=== PATIENT | female | born 1940 | race Caucasian/White ===

== ENCOUNTER 2020-02-02 08:04 | Outpatient (CLI) | payer MEDICARE, SELFPAY ==
--- NOTE | 2020-02-02 08:45 | USCV_ITS ---
Sujata Lomeli Age: 79 Gender: F : 1940 Exam Date: 02/02/2020 08:12 Ordering Phys: King Leonard MD ([email or web address]) Technologist: Paul Man Exam Location[place] [facility] [place]ication: CHEST PAIN BP: 124 / 72 HR: 70 Rhythm: Sinus Technical Quality: Fair MEASUREMENTS (Male / Female) Normal Values 2D ECHO LV Diastolic Diameter PLAX 4.0 cm 4.2 - 5.9 / 3.9 - 5.3 cm LV Systolic Diameter PLAX 3.4 cm IVS Diastolic Thickness 1.1 cm 0.6 - 1.0 / 0.6 - 0.9 cm IVS Systolic Thickness 1.3 cm LVPW Diastolic Thickness 0.8 cm 0.6 - 1.0 / 0.6 - 0.9 cm LVPW Systolic Thickness 1.4 cm LVOT Diameter 2.0 cm LV Ejection Fraction 2D Teich 33.5 % LV Ejection Fraction MOD 2C 64.1 % LV Ejection Fraction 2C AL 65.1 % LA Diameter 5.1 cm LA Width 4.0 cm LA Height 4.7 cm RA Width 2.9 cm RA Height 4.4 cm Aorta at Sinotubular Diameter 0.9 cm M-MODE LV Diastolic Diameter MM 5.9 cm 4.2 - 5.9 / 3.9 - 5.3 cm LV Systolic Diameter MM 3.8 cm LV Ejection Fraction MM Teich 64.0 % IVS Diastolic Thickness MM 0.7 cm 0.6 - 1.0 / 0.6 - 0.9 cm IVS Systolic Thickness MM 1.5 cm LVPW Diastolic Thickness MM 1.1 cm 0.6 - 1.0 / 0.6 - 0.9 cm LVPW Systolic Thickness MM 1.8 cm RV Diastolic Diameter MM 1.2 cm Aortic Annulus Diameter 3.5 cm LA Ao Ratio MM 1.5 MV E Point Septal Separation 1.3 cm DOPPLER AV Peak Velocity 136.0 cm/s LVOT Peak Velocity 86.0 cm/s AV Area Cont Eq vti 2.3 cm squared AV Area Cont Eq pk 2.1 cm squared MV Area PHT 5.0 cm squared Mitral E to A Ratio 0.6 MV E' Velocity 9.0 cm/s Mitral E to MV E' Ratio 10.9 Mitral E to LV E' Lateral Ratio 9.7 Mitral E to LV E' Septal Ratio 12.4 TR Peak Velocity 282.0 cm/s TR Peak Gradient 31.7 mmHg Right Atrial Pressure 3.0 mmHg Pulmonary Artery Systolic Pressu 34.8 mmHg PV Peak Velocity 111.0 cm/s FINDINGS Left Ventricle Normal left ventricular cavity size. Moderately decreased left ventricular systolic function. Global left ventricular hypokinesis. Left ventricular ejection fraction is estimated at 40 %. Global left ventricular hypokinesis. Grade I/IV diastolic dysfunction (abnormal relaxation filling pattern), normal to mildly elevated filling pressures. Right Ventricle The right ventricle is normal in size and function. Right Atrium The right atrium is normal in size. Left Atrium Moderately increased left atrial size. Mitral Valve Mildly thickened mitral valve. No mitral valve stenosis. Trace mitral valve regurgitation. Aortic Valve Severe aortic valve calcification. Moderate aortic valve stenosis, mean gradient 3.7 mmHg, DARIA 2.3 cm squared. Trace aortic valve regurgitation. Tricuspid Valve Trace tricuspid valve regurgitation. Pulmonic Valve Structurally normal pulmonic valve without significant stenosis. There is no pulmonic regurgitation. Pericardium Normal pericardium without effusion. Aorta Normal ascending aorta dimension. CONCLUSIONS 1-Normal left ventricular cavity size. Moderately decreased left ventricular systolic function. Global left ventricular hypokinesis. Left ventricular ejection fraction is estimated at 40 %. Global left ventricular hypokinesis. Grade I/IV diastolic dysfunction (abnormal relaxation filling pattern), normal to mildly elevated filling pressures. 2-Severe aortic valve calcification. Moderate aortic valve stenosis, mean gradient 3.7 mmHg, DARIA 2.3 cm squared. Trace aortic valve regurgitation. 3-Moderately increased left atrial size. 4-Trace tricuspid valve regurgitation. 5-There is no pericardial effusion. 6-Pulmonary artery systolic pressure is within normal limits. 7-There are no prior echocardiogram studies to compare. King Leonard MD (Electronically Signed) Final Date: 02 February 2020 14:23 S
== END 2020-02-02 08:05 | disposition home or self-care (01) ==
PROVIDERS: PCP Nurse Practitioner Family; Visit Provider Internal Medicine Cardiovascular Disease
DX: R55 Syncope and collapse (principal); R07.9 Chest pain, unspecified; I35.0 Nonrheumatic aortic (valve) stenosis
CPT/HCPCS: 93306

== ENCOUNTER 2020-07-25 14:55 | Emergency (ER) | payer MEDICARE, SELFPAY ==
[2020-07-25 15:02] VITALS: BP 149/80; PULSE 78; RESP 15; TEMP 36.3; O2SAT 99; BMI 30.9
--- NOTE | 2020-07-25 15:13 | XR_ITS ---
WS: [id number] Exam: XR chest 1V portable [id number] Date/Time of Exam: 07/25/2020 3:13 PM Reason For Exam: syncope Comparison 02/07/2009. The lungs are clear and fully expanded. No pleural effusions. Prominent hiatal hernia. Monitoring yuli ds superimpose the chest. XR/XR chest 1V portable [id number] IMPRESSION: 1. No acute cardiopulmonary finding. Large hiatal hernia.
[2020-07-25 15:14] VITALS: O2SAT 100
--- NOTE | 2020-07-25 15:17 | ECG_ITS ---
[facility] Test Date: 2020-07-25 Pat Name: Sujata Lomeli Department: Room: Gender: Female Grocery Supervisor: : 1940 Requested By: Donnell Rush Order Number: [id number] Reading MD: JUAN HOWE Measurements Intervals Arjay Rate: 72 P: 62 TN: 174 QRS: 9 QRSD: 89 T: 47 QT: 398 QTc: 437 Interpretive Statements SINUS RHYTHM No previous ECG available for comparison Electronically Signed On 07-25-2020 20:07:30 SLIP OPERATOR by JUAN HOWE [id number]
[2020-07-25 15:55] VITALS: BP 127/88; PULSE 81; RESP 19; O2SAT 100
--- NOTE | 2020-07-25 15:58 | W.ED.SYNCOPE ---
HPI - Syncope General: Chief Complaint: Syncope Stated Complaint: NEAR SYNCOPE, PALE, DIAPHORETIC Time Seen by Provider: 07/25/20 15:04 History of Present Illness: HPI narrative: The patient is a 79-year-old female who comes to the ER after a near syncopal episode at home. She says in the last year she has had at least 4 of these episodes. She says she was standing doing dishes and began to feel weak and lightheaded. She found a chair behind her to sit and slid to the ground to keep herself from falling to the ground. Her called EMS who noticed that she was pale, diaphoretic, and had a blood pressure of 56/42 with thready pulse. They started IV fluids. In the ER she is alert and oriented x4 with a normalized blood pressure. She says she still feels generally weak but no longer lightheaded. She has seen cardiology about this a few times who are titrating her blood pressure medications. Dr. Leonard is following her. She had a Holter monitor January of last year which showed no acute events. MD complaint: almost passed out -: minutes(s) (5) Context: standing up Associated symptoms: Reports no associated symptoms; Deny abdominal pain, chest pain or headache(s) History: previous syncopal episode Treatments prior to arrival: IV fluids Review of Systems General: Reports: 10 or more systems reviewed and unremarkable except in HPI and below Const: Denies: fatigue Eyes: Denies: change in vision, blurry vision or eye redness ENMT: Denies: throat pain, swelling of lips/tongue, ear or mastoid pain or nasal congestion Card: Denies: chest pain, palpitations, irregular heart rhythm, edema, dyspnea on exertion or orthopnea Resp: Denies: dyspnea, productive cough or non-productive cough GI: Denies: abdominal pain, diarrhea or GI cramping : Denies: flank pain, difficulty voiding, urinary frequency or urinary urgency Musc: Denies: neck pain, back pain, extremity pain, joint pain, joint redness, limited range of motion or muscle weakness Skin/Breast: Denies: rash, pruritus, erythema, skin pain or skin tenderness Neuro: Reports: other (Mild general weakness); Denies: headache(s), numbness in extremities, weakness in extremities, sensory changes, difficulty walking, dizziness, confusion or Slurred speech present Psych: Denies: anxiety or depression Endo: Denies: polyuria All/Imm: Denies: urticaria, throat swelling or tongue swelling PFSH ED PFSH: Medical History (Updated 07/25/20 @ 18:25 by Donnell Rush MD) Cardiomyopathy History of hypertension Physical Exam Const: COMMON NORMALS: no acute distress, average body habitus, patient oriented x3, no limitations, healthy appearing, alert and well nourished GENERAL APPEARANCE: cooperative, comfortable, well kempt and well developed ORIENTATION/CONSCIOUSNESS: Yes awake, Yes oriented to person, Yes oriented to place and Yes oriented to time HENMT: COMMON NORMALS: normocephalic, external ears normal and Normal external nose present HEAD & SCALP: normal to inspection and normocephalic NOSE: Normal external nose present EXTERNAL EAR: Yes external ears normal MOUTH: Normal oral and palatal mucosa present THROAT: posterior oropharynx normal Eye: COMMON NORMALS: Equal, round and reactive pupils present and EOMs intact bilaterally GENERAL EYE: appearance normal, both eyes and all related structures PUPIL: Yes Equal, round and reactive pupils present Neck/C-Spine: COMMON NORMALS: full ROM, no lymphadenopathy, no meningeal signs and no JVD GENERAL: Yes normal visual inspection Lymph: LYMPHATIC: no lymphadenopathy noted Chest: COMMONS NORMALS: normal inspection of the chest and normal palpation of entire chest wall Resp: COMMON NORMALS: normal respiratory effort, No retractions, No use of accessory muscles, clear to auscultation bilaterally and percussion normal EFFORT & INSPECTION: Yes able to speak in complete sentences AUSCULTATION: clear to auscultation bilaterally PERCUSSION: percussion normal Cardio: COMMON NORMALS: no JVD, regular rate, regular rhythm, S1 normal heart sound present, S2 normal heart sound present and Peripheral pulses 2+ throughout RATE: regular rate RHYTHM: regular rhythm HEART SOUNDS: S1 normal heart sound present and S2 normal heart sound present PERIPHERAL PULSES: Peripheral pulses 2+ throughout GI: COMMON NORMALS: Normal to inspection, nondistended, normoactive bowel sounds present, Soft to palpation, non-tender and no masses INSPECTION: Yes normal to inspection PALPATION: Yes Soft to palpation : COMMON NORMALS: Yes no CVA tenderness BLADDER/KIDNEY EXAM: Yes no CVA tenderness Back/Pelvis: COMMON NORMALS: no CVA tenderness, thoracic and lumbar spine normal to inspection, no thoracic nor lumbar tenderness and thoraco-lumbar ROM normal Extremity: COMMON NORMALS: normal to inspection, full ROM, capillary refill normal, no joint enlargement and no pedal edema GENERAL: Yes normal exam except as noted Neuro: COMMON NORMALS: patient oriented x3, CN's II-XII intact bilaterally, moves all extremities, no focal motor deficits, no sensory deficits noted and gait normal SENSORIUM/ORIENTATION: Yes alert, Yes oriented to person, Yes oriented to place and Yes oriented to time MENINGEAL SIGNS: Yes no meningeal signs Psych: COMMON NORMALS: mental status grossly normal, Normal thought process present, cooperative, normal affect and speech normal APPEARANCE: Yes well kempt ATTITUDE: Yes calm SPEECH: Yes normal speech THOUGHT PROCESS: Normal thought process present Skin: COMMON NORMALS: no rashes or lesions noted GENERAL SKIN EXAM: no rashes or lesions noted Course Vital Signs: Vital signs: Vital Signs Temperature 97.4 F L 07/25/20 15:02 Pulse Rate 90 07/25/20 18:02 Respiratory Rate 20 H 07/25/20 18:02 Blood Pressure 140/85 07/25/20 18:02 Pulse Oximetry 100 07/25/20 18:02 MDM - Syncope MDM Narrative: Medical decision making narrative: The patient came in after passing out with severe hypotension. Also her potassium is high and creatinine mildly elevated. Discussed with Dr. Leonard who she follows and he controls her blood pressure medications. He recommends discontinuing spironolactone, losartan, and amlodipine. Continue metoprolol. Bring blood pressure diary to his office next week and follow-up then. ER with worsening symptoms Lab Data: Labs: Lab Results 07/25/20 07/25/20 07/25/20 Range/Units 15:22 15:22 15:22 WBC 8.7 (4.0-10.0) 10^3/ uL RBC 4.14 (4.1-5.3) 10^6/u L Hgb 11.9 (11.5-15.3) g/dL Hct 37.0 (37.0-47.0) % MCV 89.4 (81-99) fL MCH 28.7 (28.0-34.0) pg MCHC 32.2 (30.0-36.0) g/dL RDW 13.3 (12.1-15.1) % Plt Count 271 (130-400) 10^3/c mm MPV 10.4 (7.4-10.4) fL Neut % (Auto) 74.7 % Lymph % (Auto) 14.1 % [place] % (Auto) 7.1 % Eos % (Auto) 2.3 % Baso % (Auto) 1.3 % Neut # (Auto) 6.52 (1.8-7.7) 10^3/u L Lymph # (Auto) 1.2 (0.8-4.8) 10^3/u L [place] # (Auto) 0.6 (0.2-0.9) 10^3/u L Eos # (Auto) 0.2 (0.0-0.8) 10^3/u L Baso # (Auto) 0.1 (0.0-0.1) 10^3/u L Nucleated RBC % (a uto) 0 % Nucleated RBCs # 0.0 /100WBC D-Dimer 0.46 (0-0.59) ug/mIFE U Sodium 135 L (136-145) mmol/L Potassium 5.4 H (3.5-5.1) mmol/L Chloride 101 (98-107) mmol/L Carbon Dioxide 25 (22-29) mmol/L Anion Gap 14.4 (5-19) BUN 21 (8-23) mg/dL Creatinine 1.2 H (0.5-0.9) mg/dL GFR Calculation Not Reportable Glucose 99 (65-115) mg/dL Calculated Osmolal ity 283 L (285-295) mOsm/k g Calcium 8.3 L (8.5-10.5) mg/dL Total Bilirubin 0.2 (0.15-1.2) mg/dL AST 18 (0-32) U/L ALT 16 (0-33) U/L Alkaline Phosphata se 87 (35-105) IU/L Troponin T Baselin e (0-10) ng/L NT-Pro-B Natriuret Pep 343 (0-450) pg/mL Total Protein 5.9 L (6.6-8.7) g/dL Albumin 3.8 (3.5-5.2) g/dL Globulin 2.1 (1.3-4.6) g/dL 02/24/21 Range/Units 15:22 WBC (4.0-10.0) 10^3/ uL RBC (4.1-5.3) 10^6/u L Hgb (11.5-15.3) g/dL Hct (37.0-47.0) % MCV (81-99) fL MCH (28.0-34.0) pg MCHC (30.0-36.0) g/dL RDW (12.1-15.1) % Plt Count (130-400) 10^3/c mm MPV (7.4-10.4) fL Neut % (Auto) % Lymph % (Auto) % Mohave % (Auto) % Eos % (Auto) % Baso % (Auto) % Neut # (Auto) (1.8-7.7) 10^3/u L Lymph # (Auto) (0.8-4.8) 10^3/u L Mohave # (Auto) (0.2-0.9) 10^3/u L Eos # (Auto) (0.0-0.8) 10^3/u L Baso # (Auto) (0.0-0.1) 10^3/u L Nucleated RBC % (a uto) % Nucleated RBCs # /100WBC D-Dimer (0-0.59) ug/mIFE U Sodium (136-145) mmol/L Potassium (3.5-5.1) mmol/L Chloride (98-107) mmol/L Carbon Dioxide (22-29) mmol/L Anion Gap (5-19) BUN (8-23) mg/dL Creatinine (0.5-0.9) mg/dL GFR Calculation Glucose (65-115) mg/dL Calculated Osmolal ity (285-295) mOsm/k g Calcium (8.5-10.5) mg/dL Total Bilirubin (0.15-1.2) mg/dL AST (0-32) U/L ALT (0-33) U/L Alkaline Phosphata se (35-105) IU/L Troponin T Baselin e 16 H (0-10) ng/L NT-Pro-B Natriuret Pep (0-450) pg/mL Total Protein (6.6-8.7) g/dL Albumin (3.5-5.2) g/dL Globulin (1.3-4.6) g/dL Discharge Plan Discharge Patient Disposition: Home Clinical Impression: Syncope, History of hypertension Condition: Stable Prescriptions: Discontinued amlodipine 5 mg tablet 5 mg PO QAM RF: 0 losartan 100 mg tablet 100 mg PO QAM RF: 0 spironolactone [Aldactone] 50 mg tablet 50 mg PO QAM RF: 0 No Action lamotrigine 100 mg tablet 100 mg PO BID RF: 0 cholecalciferol (vitamin D3) 125 mcg (5,000 unit) capsule 125 mcg PO QAM RF: 0 levothyroxine 75 mcg capsule 75 mcg PO QAM RF: 0 ICaps AREDS 14,320-226-200 [id number] capsule 1 cap PO BID RF: 0 multivitamin Tablet 1 tab PO PRN RF: 0 naproxen 500 mg tablet 500 mg PO BID PRN (Reason: Pain) RF: 0 metoprolol tartrate 25 mg tablet 12.5 mg PO BEDTIME RF: 0 Discharge Orders: Discharge ED (Routine); Ordered 07/25/20 Ordered By: Donnell Rush Referrals: Corrie Penn APN [Primary Care Provider] - Discharge Diet: Advance as tolerated Discharge Activity: Resume usual activity Patient Instructions: Near Syncope (ED), Opioid Safety Activity Restrictions/Additional Instructions: You have passed out at home likely because of your aortic stenosis and you are taking too much blood pressure medicine. I discussed with Dr. Leonard who recommend you take your blood pressure twice a day and bring it to his office next week to follow-up. He recommends stopping the spironolactone, losartan, and amlodipine. Keep taking the metoprolol. The rest of your medicines will be unchanged as well. Return to the ER with worsening symptoms or systolic blood pressures greater than 180 at home. Or with any chest pain, shortness of breath, or focal weakness. Coding Level of Care Code ED Indirect Sales Exec for Michelle Fwsue Exam Comprehensive
[2020-07-25 16:30] LABS: Troponin(5th) Baseline 16 ng/L (0-10)
[2020-07-25 16:39] LABS: Alanine Aminotransferase 16 U/L (0-33); Albumin Level 3.8 g/dL (3.5-5.2); Alkaline Phosphatase 87 IU/L (35-105); Anion Gap 14.4 (5-19); Aspartate Amino Transferase 18 U/L (0-32); Blood Urea Nitrogen 21 mg/dL (8-23); Calcium 8.3 mg/dL (8.5-10.5); Carbon Dioxide 25 mmol/L (22-29); Chloride 101 mmol/L (98-107); Globulin 2.1 g/dL (1.3-4.6); Glucose 99 mg/dL (65-115); NT Pro B Type Natriuretic Pept 343 pg/mL (0-450); Osmolality Calculated 283 mOsm/kg (285-295); Potassium 5.4 mmol/L (3.5-5.1); Sodium 135 mmol/L (136-145); Total Bilirubin 0.2 mg/dL (0.15-1.2); Total Protein 5.9 g/dL (6.6-8.7)
[2020-07-25 16:41] LABS: Basophils # 0.1 10^3/uL (0.0-0.1); Basophils % 1.3 %; Eosinophils # 0.2 10^3/uL (0.0-0.8); Eosinophils % 2.3 %; Hemoglobin 11.9 g/dL (11.5-15.3); Lymphocytes # 1.2 10^3/uL (0.8-4.8); Lymphocytes % 14.1 %; Mean Corpuscular HGB Conc 32.2 g/dL (30.0-36.0); Mean Corpuscular Hemoglobin 28.7 pg (28.0-34.0); Mean Corpuscular Volume 89.4 fL (81-99); Mean Platelet Volume 10.4 fL (7.4-10.4); Monocytes # 0.6 10^3/uL (0.2-0.9); Monocytes % 7.1 %; Neutrophils # 6.52 10^3/uL (1.8-7.7); Neutrophils % 74.7 %; Nucleated Red Blood Cells % 0 %; Platelet Count 271 10^3/cmm (130-400); Red Blood Count 4.14 10^6/uL (4.1-5.3); Red Cell Distribution Width 13.3 % (12.1-15.1); White Blood Count 8.7 10^3/uL (4.0-10.0)
[2020-07-25 16:44] LABS: D Dimer 0.46 ug/mIFEU (0-0.59)
--- NOTE | 2020-07-25 16:51 | PC.NURSE ---
EKG done at 1650 and shown to ER doctor
--- NOTE | 2020-07-25 17:17 | ECG_ITS ---
[facility] Test Date: 2020-07-25 Pat Name: Sujata Lomeli Department: Room: Gender: Female Inpatient Auditor: : 1940 Requested By: Donnell Rush Order Number: [id number] Reading MD: JUAN HOWE Measurements Intervals [place] Rate: 77 P: 42 MO: 186 QRS: -8 QRSD: 81 T: 11 QT: 396 QTc: 449 Interpretive Statements SINUS RHYTHM Compared to ECG 07/25/2020 15:01:49 No significant changes Electronically Signed On 07-25-2020 20:08:28 SURGICAL DEVICE SALES REPRESENTATIVE by JUAN HOWE [id number]
[2020-07-25 18:02] VITALS: BP 140/85; PULSE 90; RESP 20; O2SAT 100
[2020-07-25 18:26] LABS: Troponin 5 2HR 15.21 ng/L (0-10)
[2020-07-25 18:43] LABS: Troponin 5 2HR Delta -0.79 ABS# (0-10)
[2020-07-25 19:05] VITALS: BP 130/69; PULSE 88; RESP 16; O2SAT 97
[2020-07-25 19:51] LABS: Add Urine Microscopic? NO
[2020-07-25 19:59] LABS: Bilirubin Urine Neg (Negative); Blood Urine Neg (Negative); Glucose Urine UA Norm (Normal); Ketones Urine Negative (Negative); Leukocyte Esterase Urine Negative (Negative); Nitrate Urine Negative (Negative); Protein Urine Neg (Negative); Urine Appearance Clear (CLEAR); Urine Color Straw (Yellow); Urobilinogen Urine Norm (Negative); pH Urine 6.5 (5-7)
--- NOTE | 2020-07-26 14:17 | DCPLANNER ---
hydrogen plant operations manager had message to schedule a follow up appointment for patient with Dr. Leonard, at [facility]. hydrogen plant operations manager called [facility], spoke with Mackenzie, a follow up appointment was scheduled for Friday, July 31, 2020 at 12:[address] Leonard. Patient is aware of appointment.
--- NOTE | 2020-08-06 08:16 | DCPLANNER ---
Patient had a follow up appointment scheduled for 07.31.20 with heart care - patient did attend appointment.
== END 2020-07-25 19:14 | disposition home or self-care (01) ==
PROVIDERS: Emergency Provider Family Medicine; PCP Nurse Practitioner Family
DX: R55 Syncope and collapse (principal); I10 Essential (primary) hypertension
CPT/HCPCS: 36415; 71045; 80053; 81003; 83880; 84484; 85025; 85378; 93005; 99284

== ENCOUNTER 2020-09-06 08:38 | Outpatient (CLI) | payer MEDICARE, SELFPAY ==
--- NOTE | 2020-09-06 08:45 | USCV_ITS ---
Sujata Lomeli Age: 79 Gender: F : 1940 Exam Date: 09/06/2020 08:57 Ordering Phys: Shweta Chaparro Technologist: Jodi Lockhart [place]am [place] [facility] [place] Indication: syncope and collapse Risk Factors: Previous Vascular Surgery: Right Brachial BP: / Left Brachial BP: / Right Left Velocity (cm/s) Spectral Plaque Velocity (cm/s) Spectral Plaque Syst/Diast Broadening Syst/Diast Broadening 61.80/ 12.90 Prox CCA 56.60 / 12.90 60.00/ 18.90 Mid CCA 54.90 / 12.90 56.60/ 18.90 Distal CCA 50.60 / 14.60 43.70/ 11.10 Prox ICA 33.20 / 10.30 45.50/ 11.10 Mid ICA 37.90 / 10.90 54.00/ 18.00 Distal ICA 41.30 / 12.80 90.90 ECA 102.10 0.90 ICA/CCA 0.75 Antegrade Vertebral Antegrade 33.20/ 6.60 cm/s 63.40/ 15.20 cm/s Tri Subclavian Tri 101.2 37.00 0 CONCLUSIONS Right ICA stenosis <50%. Mild atheromatous plaque right carotid bulb/ICA. Left ICA stenosis <50%. Mild atheromatous plaque left carotid bulb/ICA. Normal antegrade Doppler flow noted in the right vertebral artery. Normal antegrade Doppler flow noted in the left vertebral artery. Julio Cesar Dangelo MD (Electronically Signed) Final Date: 06 September 2020 10:22 S
== END 2020-09-06 08:39 | disposition home or self-care (01) ==
LOC: US 08:42
PROVIDERS: PCP Nurse Practitioner Family; Visit Provider Nurse Practitioner Family
DX: R55 Syncope and collapse (principal); I65.23 Occlusion and stenosis of bilateral carotid arteries
CPT/HCPCS: 93880

== ENCOUNTER → 2021-02-13 12:05 | Outpatient (BNVA) | payer MEDICARE, SELFPAY | PROVIDERS: PCP Nurse Practitioner Family; Visit Provider Nurse Practitioner Family | DX: I10 Essential (primary) hypertension (principal); R55 Syncope and collapse | CPT/HCPCS: 80048 ==

== ENCOUNTER 2021-03-01 13:54 | Emergency (ER) | payer MEDICARE, SELFPAY ==
--- NOTE | 2021-03-01 13:58 | CT_ITS ---
WS: [id number] CT HEAD NONCONTRAST HISTORY: stroke symptoms TECHNIQUE: Contiguous axial imaging performed through the brain in 2.5 mm imaging. Bone and soft tiss ue windows. Sagittal and coronal reformats reviewed. All CT scans at [facility] use at least one of these dose optimization techniques: automated exposure control; mA and/or kV adjustment per pa tient size (includes targeted exams where dose is matched to clinical indication); or iterative recon struction. DLP: 941.78 mGy-cm. COMPARISON: 02/07/2009 No acute intracranial hemorrhage, midline shift or mass effect. Moderate central and peripheral atrophy. There is extensive chronic white matter ischemic changes whi ch are symmetric and confluent. Prior lacunar infarct external capsule on the RIGHT. Ventricles: Normal size with no hydrocephalus. No inferior displacement of the cerebellar tonsils. Paranasal sinuses: As visualized are clear. Mastoid Cells: Well pneumatized. Calvarium and scalp: Skull is intact with no soft tissue edema or swelling. Numerous foci of air in the RIGHT masseter space and extending external to the temporal temporal bone to the RIGHT orbit. No history of trauma was provided. No fracture is identified. CT/CT head wo con* [id number] IMPRESSION: 1. Central and peripheral atrophy with extensive chronic microvascular ischemi c changes. 2. No acute hemorrhage. 3. Subcutaneous air along the RIGHT calvarium extending into the RIGHT massete r space. No history of trauma was provided. No fractures are identified.
[2021-03-01 14:07] VITALS: BP 183/91; PULSE 62; RESP 17; O2SAT 98; BMI 29.6
[2021-03-01 14:17] LABS: Basophils # 0.1 10^3/uL (0.0-0.1); Basophils % 1.6 %; Eosinophils # 0.2 10^3/uL (0.0-0.8); Eosinophils % 3.6 %; Hematocrit 35.8 % (37.0-47.0); Lymphocytes # 1.6 10^3/uL (0.8-4.8); Lymphocytes % 25.9 %; Mean Corpuscular HGB Conc 33.5 g/dL (30.0-36.0); Mean Corpuscular Hemoglobin 28.5 pg (28.0-34.0); Mean Platelet Volume 10.8 fL (7.4-10.4); Monocytes # 0.7 10^3/uL (0.2-0.9); Neutrophils # 3.55 10^3/uL (1.8-7.7); Neutrophils % 57.6 %; Nucleated Red Blood Cells % 0 %; Platelet Count 268 10^3/cmm (130-400); Red Blood Count 4.21 10^6/uL (4.1-5.3); White Blood Count 6.2 10^3/uL (4.0-10.0)
--- NOTE | 2021-03-01 14:24 | ED_ITS ---
HPI - Neuro Symptoms/Deficit General: Chief Complaint: Neuro Symptoms/Deficit Stated Complaint: STROKE LIKE SYMPTOMS Time Seen by Provider: 03/01/21 13:57 History of Present Illness: HPI Narrative: 80-year-old female presents emergency room with strokelike symptoms. Last known normal was approximately 1250 she arrived here at 1357. Reports of syncopal episodes left-sided weakness. On arrival patient has no deficits whatsoever. She is awake and alert x3. Onset (ago): minute(s) Location: speech, left face, left arm and left leg History of same: Yes Severity: mild Quality: weak Relieving factors: time Exacerbating factors: none Context: sudden onset On Anticoagulants: No Associated symptoms: Deny chest pain, cough, diaphoresis, fevers/chills, hea dache(s), anorexia, malaise, nausea, seizures, short of breath, syncope, tingling, vertigo, vomiting or weakness Treatments Prior to Arrival: none Review of Systems Const: Denies: malaise or diaphoresis ENMT: Denies: throat pain, ear or mastoid pain, nasal discharge or nasal congestion Card: Denies: chest pain or syncope Resp: Denies: dyspnea, productive cough or non-productive cough GI: Denies: nausea or vomiting : Denies: flank pain, difficulty voiding, dysuria, urinary frequency or urinary urgency Skin/Breast: Denies: rash or pruritus Neuro: Denies: headache(s) or vertigo [facility] ED PFSH: Medical History Cardiomyopathy Coronary artery disease Hypertension Hypothyroidism Surgical History Hx of tubal ligation S/P cataract surgery NIH stroke score NIHSS: Level Of Consciousness - 1a: 0 Level Of Consciousness Questions - 1b: Both Correct Level Of Consciousness Commands - 1c: Both Correct Best Gaze - 2: Normal Visual Colon - 3: No Visual Loss Facial Palsy - 4: Normal Motor Arm Right - 5: No Drift Motor Arm Left - 5: No Drift Motor Leg Right - 6: No Drift Motor Leg Left - 6: No Drift Limb Ataxia - 7: Absent Sensory - 8: Normal Best Language - 9: No Aphasia Dysarthia - 10: Normal Extinction And Inattention - 11: 0 Score: Total Score: 0 Physical Exam Const: COMMON NORMALS: no acute distress GENERAL APPEARANCE: cooperative and comfortable ORIENTATION/CONSCIOUSNESS: Yes awake, Yes oriented to person, Yes oriented to place and Yes oriented to time HENMT: COMMON NORMALS: normocephalic, atraumatic and hearing grossly normal bilaterally HEAD & SCALP: normocephalic and atraumatic Neck/C-Spine: COMMON NORMALS: no JVD Resp: COMMON NORMALS: normal respiratory effort, No retractions, No use of accessory muscles and clear to auscultation bilaterally AUSCULTATION: clear to auscultation bilaterally Cardio: COMMON NORMALS: no JVD, regular rate, regular rhythm and No murmurs present (Cardio) RATE: regular rate RHYTHM: regular rhythm GI: COMMON NORMALS: Soft to palpation and No hepatosplenomegaly present AUSCULTATION: Yes normoactive bowel sounds PALPATION: Yes Soft to palpation, No Tenderness to palpation present (GI), No Guarding due to palpation present (GI) and Yes No hepatosplenomegaly present Extremity: COMMON NORMALS: normal to inspection, capillary refill normal, no clubbing, cyanosis or edema, no calf tenderness and no pedal edema Neuro: SENSORIUM/ORIENTATION: Yes oriented to person, Yes oriented to place and Yes oriented to time Skin: COMMON NORMALS: no rashes or lesions noted GENERAL SKIN EXAM: no rashes or lesions noted Course Vital Signs: Vital signs: Vital Signs Pulse Rate 67 03/01/21 16:13 Respiratory Rate 16 03/01/21 16:13 Blood Pressure 163/79 03/01/21 16:13 Pulse Oximetry 98 03/01/21 16:13 MDM - Neuro Symptoms/Deficit MDM Narrative: Medical decision making narrative: [facility] imaging and EKG reviewed. Discussed with the patient. Will start on 81 mg aspirin daily. She is completely resolved all of her symptoms within an hour. Further work-up as an outpatient. Lab Data: Labs: Lab Results 03/01/21 03/01/21 03/01/21 14:00 14:00 14:00 WBC 6.2 10^3/uL 10^3/ uL (4.0-10.0) RBC 4.21 10^6/uL 10^6 /uL (4.1-5.3) Hgb 12.0 g/dL g/dL (11.5-15.3) Hct 35.8 % L % (37.0-47.0) MCV 85.0 fl fl (81-99) MCH 28.5 pg pg (28.0-34.0) MCHC 33.5 g/dL g/dL (30.0-36.0) RDW 14.0 % % (12.1-15.1) Plt Count 268 10^3/cmm 10^3 /cmm (130-400) MPV 10.8 fL H fL (7.4-10.4) Neut % (Auto) 57.6 % % Lymph % (Auto) 25.9 % % [place] % (Auto) 11.0 % % Eos % (Auto) 3.6 % % Baso % (Auto) 1.6 % % Neut # (Auto) 3.55 10^3/uL 10^3 /uL (1.8-7.7) Lymph # (Auto) 1.6 10^3/uL 10^3/ uL (0.8-4.8) [place] # (Auto) 0.7 10^3/uL 10^3/ uL (0.2-0.9) Eos # (Auto) 0.2 10^3/uL 10^3/ uL (0.0-0.8) Baso # (Auto) 0.1 10^3/uL 10^3/ uL (0.0-0.1) Nucleated RBC % (a uto) 0 % % Nucleated RBCs # 0.0 /100WBC /100W BC PT Cancelled INR Cancelled APTT Cancelled Sodium 130 mmol/L L mmol /L (136-145) Potassium 4.5 mmol/L mmol/L (3.5-5.1) Chloride 94 mmol/L L mmol/ L (98-107) Carbon Dioxide 28 mmol/L mmol/L (22-29) Anion Gap 12.5 (5-19) BUN 18 mg/dL mg/dL (8-23) Creatinine 0.8 mg/dL mg/dL (0.5-0.9) GFR Calculation Not Reportable Glucose 102 mg/dL mg/dL (65-115) Calculated Osmolal ity 272 mOsm/kg L mOs m/kg (285-295) Calcium 9.3 mg/dL mg/dL (8.5-10.5) Total Bilirubin 0.3 mg/dL mg/dL (0.15-1.2) AST 18 U/L U/L (0-32) ALT 14 U/L U/L (0-33) Alkaline Phosphata se 76 IU/L IU/L (35-105) Total Protein 6.3 g/dL L g/dL (6.6-8.7) Albumin 4.0 g/dL g/dL (3.5-5.2) Globulin 2.3 g/dL g/dL (1.3-4.6) 03/01/21 14:33 WBC RBC Hgb Hct MCV MCH MCHC RDW Plt Count MPV Neut % (Auto) Lymph % (Auto) [place] % (Auto) Eos % (Auto) Baso % (Auto) Neut # (Auto) Lymph # (Auto) [place] # (Auto) Eos # (Auto) Baso # (Auto) Nucleated RBC % (a uto) Nucleated RBCs # PT 12.70 SECONDS SEC ONDS (12.1-14.9) INR 0.92 (0.8-1.2) APTT 24.5 SECONDS SECO NDS (23.9-36.7) Sodium Potassium Chloride Carbon Dioxide Anion Gap BUN Creatinine GFR Calculation Glucose Calculated Osmolal ity Calcium Total Bilirubin AST ALT Alkaline Phosphata se Total Protein Albumin Globulin Discharge Plan Discharge Patient Disposition: Home Clinical Impression: Transient ischemic attack Condition: Stable Prescriptions: New aspirin 81 mg tablet,delayed release (DR/EC) 81 mg PO DAILY Qty: 30 RF: 0 No Action lamotrigine 100 mg tablet 100 mg PO BID RF: 0 cholecalciferol (vitamin D3) 125 mcg (5,000 unit) capsule 125 mcg PO QAM RF: 0 ICaps AREDS 14,320-226-200 [id number]-[id number] capsule 1 cap PO BID RF: 0 valsartan-hydrochlorothiazide 320-25 mg tablet 1 tab PO QAM Qty: 90 RF: 2 naproxen 500 mg tablet 500 mg PO BID PRN (Reason: Pain) RF: 0 carvedilol 12.5 mg tablet 18.75 mg PO BID RF: 0 levothyroxine 75 mcg tablet 75 mcg PO QAM RF: 0 spironolactone 25 mg tablet 12.5 mg PO QAM RF: 0 Discharge Orders: Discharge ED (Routine); Ordered 03/01/21 Ordered By: Julien Hyde Referrals: Corrie Penn APN [Primary Care Provider] - Patient Instructions: Opioid Safety Coding Level of Care Code ED Executive Producer [employer] for Chg Fwd Exam Comprehensive
--- NOTE | 2021-03-01 14:32 | CT_ITS ---
WS: [id number] CT FACIAL BONES HISTORY: abnormal CT head TECHNIQUE: Images obtained from the supraorbital location through the mandible. Soft tissue and bone windows are reviewed. Coronal and sagittal reformats have also been submitted. DLP: 724.[address] scans at [facility] use at least one of these dose optimization techniques: automated e xposure control; mA and/or kV adjustment per patient size (includes targeted exams where dose is matc hed to clinical indication); or iterative reconstruction. COMPARISON: CT head 03/01/2021 No facial bone fractures. Previously described subcutaneous air along the RIGHT lateral temporal bone and masseter space has nearly completely resolved. There is very minimal mucosal mucoperiosteal thic kening in the RIGHT lateral frontal sinus. No air-fluid levels in the sinuses. CT/CT facial bones wo con* [id number] IMPRESSION: 1. Nearly resolved subcutaneous air over the RIGHT facial bones and in the mas seter space. Unknown etiology. 2. No fractures.
--- NOTE | 2021-03-01 14:32 | CT_ITS ---
WS: [id number] CT CERVICAL SPINE HISTORY: neck pain TECHNIQUE: Contiguous 2.5 mm axial imaging performed through the entire cervical spine. Sagittal and coronal reformats also performed. All CT scans at [facility] use at least one of these dose o ptimization techniques: automated exposure control; mA and/or kV adjustment per patient size (include s targeted exams where dose is matched to clinical indication); or iterative reconstruction. DLP: 460.09 mGy.cm COMPARISON: None available. Cervical alignment is normal. Moderate degenerative disc disease and osteophytosis at C4-5, C5-6 and C6-7. No acute fractures. Craniocervical junction is normal. Lateral masses of C1 and C2 are aligned and the odontoid is intact. Osteophytic ridging at C4-5, C5-6 and C6-7. No high-grade central or fora oralia stenosis. Lung apices are clear. No pneumothorax. No air within the soft tissues of the neck. No soft tissue ma sses. Benign cervical chain lymph nodes. CT/CT cervical spin wo con* [id number] IMPRESSION: 1. Moderate degenerative spondylitic changes in the cervical spine with no hig h-grade stenosis. 2. No acute fracture. 3. No subcutaneous air.
--- NOTE | 2021-03-01 14:32 | XR_ITS ---
WS: [id number] Exam: XR chest 1V portable [id number] Date/Time of Exam: 03/01/2021 2:32 PM Reason For Exam: dyspnea/cough Comparison 07/25/2020. The lungs are clear and fully expanded. Cardiomediastinal structures are unremarkable. Prominent hiat al hernia. Bony elements are intact. XR/XR chest 1V portable [id number] IMPRESSION: 1. No acute cardiopulmonary finding. Prominent hiatal hernia.
[2021-03-01 14:37] LABS: Alanine Aminotransferase 14 U/L (0-33); Alkaline Phosphatase 76 IU/L (35-105); Anion Gap 12.5 (5-19); Aspartate Amino Transferase 18 U/L (0-32); Blood Urea Nitrogen 18 mg/dL (8-23); Calcium 9.3 mg/dL (8.5-10.5); Carbon Dioxide 28 mmol/L (22-29); Chloride 94 mmol/L (98-107); Globulin 2.3 g/dL (1.3-4.6); Glucose 102 mg/dL (65-115); Osmolality Calculated 272 mOsm/kg (285-295); Potassium 4.5 mmol/L (3.5-5.1); Sodium 130 mmol/L (136-145); Total Bilirubin 0.3 mg/dL (0.15-1.2); Total Protein 6.3 g/dL (6.6-8.7)
[2021-03-01 14:53] LABS: INR 0.92 (0.8-1.2)
[2021-03-01 14:54] LABS: Partial Thromboplastin Time 24.5 SECONDS (23.9-36.7)
--- NOTE | 2021-03-01 15:30 | PC.PHAR ---
pt states she takes care of her own medications-pt states she takes carvedilol 18.75mg po bid filled on 02/07/21 90d/s-donny alicea wrote rx on 02/13/21 12.5mg bid-pt states -the dced her clonidine 0.1mg q8h prn high blood pressure ext med history shows last filled on 02/05/21-notes are made in the pharmacy comments
[2021-03-01 16:13] VITALS: BP 163/79; PULSE 67; RESP 16; O2SAT 98
--- NOTE | 2021-03-04 10:28 | DCPLANNER ---
[facility] had message to schedule some out patient tests for patient. [facility] had message to schedule an outpatient echocardiogram, carotid duplex, a 48 hour halter monitor and an MRI. [facility] faxed signed order to both centralized scheduling, and heart care. Centralized scheduling and heart care will call patient with appointment information.
--- NOTE | 2021-03-08 15:16 | DCPLANNER ---
Patient has a follow up appointment scheduled for Thursday, April at 9:30 for an echo. A carotid is scheduled Thursday, April 15, 2021 at 9:30 and an MRI scheduled for Thursday, March 25, 2021 at 1:00.
--- NOTE | 2021-04-18 16:40 | DCPLANNER ---
Patient had an out patient echo and carotid duplex scheduled - patient did not attend. Patient had a follow up appointment scheduled with heart care and it was cancelled.
== END 2021-03-01 16:14 | disposition home or self-care (01) ==
PROVIDERS: Emergency Provider Family Medicine; PCP Nurse Practitioner Family
DX: G45.9 Transient cerebral ischemic attack, unspecified (principal); I25.10 Atherosclerotic heart disease of native coronary artery without angina pectoris; I10 Essential (primary) hypertension
CPT/HCPCS: 70450; 70486; 71045; 72125; 80053; 85025; 85610; 85730; 99283

== ENCOUNTER 2021-04-01 12:27 | Outpatient (RCR) | payer MEDICARE, SELFPAY | END 2021-04-30 23:59 | disposition home or self-care (01) | LOC: TPT 12:27 | PROVIDERS: PCP Nurse Practitioner Family; Visit Provider Family Medicine Adult Medicine | DX: R29.898 Other symptoms and signs involving the musculoskeletal system (principal); Z98.890 Other specified postprocedural states | CPT/HCPCS: 97110; 97116; 97163 ==

== ENCOUNTER 2021-04-24 21:23 | Emergency (ER) | payer MEDICARE, SELFPAY ==
[2021-04-24 21:23] VITALS: BP 184/80; PULSE 70; RESP 18; TEMP 36.3; O2SAT 100; BMI 30.5
--- NOTE | 2021-04-24 21:28 | ECG_ITS ---
[facility] Test Date: 2021-04-24 Pat Name: Sujata Lomeli Department: Room: Gender: Female Bobbin Dumper: : 1940 Requested By: Josh Melo Order Number: [id number] Dany MD: Adiel Shah M.D. Measurements Intervals [place] Rate: 69 P: 37 SD: 177 QRS: -14 QRSD: 96 T: -3 QT: 406 QTc: 437 Interpretive Statements SINUS RHYTHM Compared to ECG 07/25/2020 16:46:01 No significant changes Electronically Signed On 04-25-2021 4:24:42 [facility] by Adiel Shah M.D. [id number]
--- NOTE | 2021-04-24 21:28 | XRR_ITS ---
PROCEDURE INFORMATION: Exam: XR Chest Exam date and time: 04/24/2021 9:28 PM Age: 80 years old Clinical indication: Other: Weakness TECHNIQUE: Imaging protocol: XR of the chest. Views: 1 view. COMPARISON: CR XR chest 1V portable [id number] 03/01/2021 2:39 PM FINDINGS: Lungs: Unremarkable. No consolidation. Pleural spaces: Unremarkable. No pleural effusion. No pneumothorax. Heart/Mediastinum: Unremarkable. No cardiomegaly. Bones/joints: Unremarkable. XR/XR chest 1V portable [id number] IMPRESSION: No acute findings. Radiation Dose CTDIVOL = (mGy): DLP = (mGy-cm)
--- NOTE | 2021-04-24 21:29 | ED_ITS ---
HPI - Weakness General: Chief complaint: Weakness Stated complaint: WEAKNESS Time Seen by Provider: 04/24/21 21:23 Source: patient and EMS Mode of arrival: EMS Limitations: no limitations History of Present Illness: HPI Narrative: 80-year-old female states that she started feeling generally weak roughly 3 hours ago. States she is had many episodes in the past like this and they have never been able to find the cause. She states she is just had some difficulty walking due to weakness. States she does have a hard time walking at baseline walks with a walker and had Achilles surgery should she has a hard time walking but states that she has felt unsteady when she stands. Denies any headache denies any focal deficits. She is well- appearing here denies chest pain or abdominal pain. Associated symptoms: Denies chest pain, chills, dysuria, easy bruising, fever(s), nausea or vomiting Review of Systems Const: Denies: fever(s), chills, body aches or change in appetite Eyes: Denies: blurry vision or eye discomfort ENMT: Denies: throat pain or dental pain Card: Denies: chest pain Resp: Denies: dyspnea GI: Denies: abdominal pain, nausea, vomiting or diarrhea : Denies: dysuria Musc: Denies: neck pain or back pain Skin/Breast: Denies: rash Neuro: Reports: weakness in extremities Psych: Denies: depression Jayesh/Lymph: Denies: easy bruising All/Imm: Denies: urticaria PFSH ED PFSH: Medical History Cardiomyopathy Cerebral vascular disease TIA on 03/01/2021 Chronic pain of right lower extremity Coronary artery disease Hypertension Hypothyroidism Osteoarthritis Right leg weakness Seizure disorder Surgical History Hx of foot surgery Hx of tubal ligation S/P cataract surgery Social History Smoking and tobacco status: never smoked Physical Exam Const: COMMON NORMALS: no acute distress, patient oriented x3 and healthy appearing HENMT: COMMON NORMALS: normocephalic and atraumatic HEAD & SCALP: normocephalic and atraumatic Eye: COMMON NORMALS: Equal, round and reactive pupils present and EOMs intact bilaterally PUPIL: Yes Equal, round and reactive pupils present Neck/C-Spine: COMMON NORMALS: full ROM and supple Chest: COMMONS NORMALS: normal inspection of the chest and normal palpation of entire chest wall Resp: COMMON NORMALS: normal respiratory effort, No retractions, No use of accessory muscles and clear to auscultation bilaterally AUSCULTATION: clear to auscultation bilaterally Cardio: COMMON NORMALS: regular rate, regular rhythm and No murmurs present (Cardio) RATE: regular rate RHYTHM: regular rhythm GI: COMMON NORMALS: Normal to inspection, nondistended, normoactive bowel sounds present, Soft to palpation, non-tender and no masses PALPATION: Yes Soft to palpation Extremity: COMMON NORMALS: normal to inspection and full ROM Neuro: COMMON NORMALS: patient oriented x3, moves all extremities and no focal motor deficits Psych: COMMON NORMALS: mental status grossly normal, Normal thought process present and cooperative THOUGHT PROCESS: Normal thought process present Skin: COMMON NORMALS: no rashes or lesions noted and no wounds GENERAL SKIN EXAM: no rashes or lesions noted Course Vital Signs: Vital signs: Vital Signs Temperature 97.4 F L 04/24/21 21:23 Pulse Rate 67 04/24/21 22:14 Respiratory Rate 20 H 04/24/21 22:14 Blood Pressure 173/73 04/24/21 22:44 Pulse Oximetry 97 04/24/21 22:14 MDM - Weakness MDM Narrative: Medical decision making narrative: Patient presents here with weakness that since resolved. She had multiple episodes like this in the past she has no signs of stroke here no focal deficits she is requesting discharge blood work and head CT are normal I feel she is stable for discharge she is to follow-up with PCP and return if worsening. Lab Data: Labs: Lab Results 04/24/21 04/24/21 04/24/21 21:40 21:40 22:34 WBC 7.3 10^3/uL 10^3/ uL (4.0-10.0) RBC 4.09 10^6/uL L 10 ^6/uL (4.1-5.3) Hgb 11.7 g/dL g/dL (11.5-15.3) Hct 35.9 % L % (37.0-47.0) MCV 87.8 fl fl (81-99) MCH 28.6 pg pg (28.0-34.0) MCHC 32.6 g/dL g/dL (30.0-36.0) RDW 14.0 % % (12.1-15.1) Plt Count 269 10^3/cmm 10^3 /cmm (130-400) MPV 10.2 fL fL (7.4-10.4) Neut % (Auto) 58.5 % % Lymph % (Auto) 27.0 % % [place] % (Auto) 8.8 % % Eos % (Auto) 3.8 % % Baso % (Auto) 1.6 % % Neut # (Auto) 4.27 10^3/uL 10^3 /uL (1.8-7.7) Lymph # (Auto) 2.0 10^3/uL 10^3/ uL (0.8-4.8) [place] # (Auto) 0.6 10^3/uL 10^3/ uL (0.2-0.9) Eos # (Auto) 0.3 10^3/uL 10^3/ uL (0.0-0.8) Baso # (Auto) 0.1 10^3/uL 10^3/ uL (0.0-0.1) Nucleated RBC % (a uto) 0 % % Nucleated RBCs # 0.0 /100WBC /100W BC PT 11.80 SECONDS L S ECONDS (12.1-14.9) INR 0.84 (0.8-1.2) Sodium 129 mmol/L L mmol /L (136-145) Potassium 3.9 mmol/L mmol/L (3.5-5.1) Chloride 92 mmol/L L mmol/ L (98-107) Carbon Dioxide 25 mmol/L mmol/L (22-29) Anion Gap 15.9 (5-19) BUN 19 mg/dL mg/dL (8-23) Creatinine 0.9 mg/dL mg/dL (0.5-0.9) GFR Calculation Not Reportable Glucose 100 mg/dL mg/dL (65-115) Calculated Osmolal ity 270 mOsm/kg L mOs m/kg (285-295) Calcium 9.0 mg/dL mg/dL (8.5-10.5) Total Bilirubin 0.2 mg/dL mg/dL (0.15-1.2) AST 17 U/L U/L (0-32) ALT 14 U/L U/L (0-33) Alkaline Phosphata se 89 IU/L IU/L (35-105) Total Protein 6.4 g/dL L g/dL (6.6-8.7) Albumin 4.1 g/dL g/dL (3.5-5.2) Globulin 2.3 g/dL g/dL (1.3-4.6) TSH 5.26 uIU/mL H uIU /mL (0.27-4.20) Urine Color Urine Appearance Urine pH Ur Specific Gravit y Urine Protein Urine Glucose (UA) Urine Ketones Urine Blood Urine Nitrate Urine Bilirubin Urine Urobilinogen Ur Leukocyte Jackie ase Urine RBC Urine WBC Ur Squamous Epith Cells Amorphous Sediment Urine Bacteria Hyaline Casts Urine Mucus 04/24/21 22:54 WBC RBC Hgb Hct MCV MCH MCHC RDW Plt Count MPV Neut % (Auto) Lymph % (Auto) [place] % (Auto) Eos % (Auto) Baso % (Auto) Neut # (Auto) Lymph # (Auto) [place] # (Auto) Eos # (Auto) Baso # (Auto) Nucleated RBC % (a uto) Nucleated RBCs # PT INR Sodium Potassium Chloride Carbon Dioxide Anion Gap BUN Creatinine GFR Calculation Glucose Calculated Osmolal ity Calcium Total Bilirubin AST ALT Alkaline Phosphata se Total Protein Albumin Globulin TSH Urine Color Yellow (Yellow) Urine Appearance Clear (CLEAR) Urine pH 5 (5-7) Ur Specific Gravit y 1.020 (1.005-1.030) Urine Protein Trace (Negative) Urine Glucose (UA) Norm (Normal) Urine Ketones Negative (Negative) Urine Blood Neg (Negative) Urine Nitrate Negative (Negative) Urine Bilirubin 1+ H (Negative) Urine Urobilinogen Neg mg/dL mg/dL (Negative) Ur Leukocyte Jackie ase 2+ H (Negative) Urine RBC Rare /hpf /hpf (0-2) Urine WBC 15-25 /hpf H /hpf (0-5) Ur Squamous Epith Cells 0-4 /hpf H /hpf (0-5) Amorphous Sediment 1+ /hpf /hpf Urine Bacteria Trace /hpf /hpf (NONE) Hyaline Casts 5-10 /lpf H /lpf Urine Mucus 4+ /hpf /hpf Imaging Data^: CT Head: Radiologist's impression: [employer] [facility] [place] [address] CT Scan Report Signed Patient: Sujata Lomeli Unit #: [id number] : 1940 Age/Sex: 80 / F ADM Date: 04/24/21 Loc: ER Room/Bed: Attending Dr: Ordering Provider/Ordering MD: Josh Melo MD Date of Service: 04/24/21 Procedure(s): CT head wo con* [id number] Accession Number(s): [id number] Report Number: [id number] PROCEDURE INFORMATION: Exam: CT Head Without Contrast Exam date and time: 04/24/2021 9:28 PM Age: 80 years old Clinical indication: Patient HX: General weakness with hypertension. TECHNIQUE: Imaging protocol: Computed tomography of the head without contrast. Radiation optimization: All CT scans at this facility use at least one of these dose optimization techniques: automated exposure control; mA and/or kV adjustment per patient size (includes targeted exams where dose is matched to clinical indication); or iterative reconstruction. COMPARISON: CT head wo con* [id number] 03/01/2021 1:49 PM RADIATION DOSE METRICS: Total DLP (mGy-cm): 870.29 FINDINGS: Brain: Age appropriate atrophy and small vessel ischemic change. No evidence of intracranial hemorrhage, mass effect, midline shift or extra-axial fluid collections. Midline structures are normal. Berman-white matter differentiation is normal. Cerebral ventricles: No ventriculomegaly. Paranasal sinuses: Mucosal thickening in the ethmoid and frontal sinuses. Mastoid air cells: Visualized mastoid air cells are well aerated. Orbital cavity: The patient has had bilateral lens replacement surgery. Vasculature: Carotid atherosclerotic calcification. Bones/joints: Unremarkable. No acute fracture. Soft tissues: Unremarkable. CT/CT head wo con* [id number] IMPRESSION: No acute intracranial abnormality. Radiation Dose CTDIVOL = (mGy): DLP = 870.29 (mGy-cm) Dictated By: Ashish Alvarenga MD Signed By: Ashish Alvarenga MD Signed Date/Time: 04/24/212229 DD/ 27 CXR: Radiologist's impression: [employer] [place] [address] XRay Report Signed Patient: Sujata Lomeli Unit #: [id number] : 1940 [id number] Age/Sex: 80 / F ADM Date: 04/24/21 Loc: ER Room/Bed: Attending Dr: Ordering Provider/Ordering MD: Josh Melo MD Date of Service: 04/24/21 Procedure(s): XR chest 1V portable [id number] Accession Number(s): [id number] Report Number: [id number] PROCEDURE INFORMATION: Exam: XR Chest Exam date and time: 04/24/2021 9:28 PM Age: 80 years old Clinical indication: Other: Weakness TECHNIQUE: Imaging protocol: XR of the chest. Views: 1 view. COMPARISON: CR XR chest 1V portable [id number] 03/01/2021 2:39 PM FINDINGS: Lungs: Unremarkable. No consolidation. Pleural spaces: Unremarkable. No pleural effusion. No pneumothorax. Heart/Mediastinum: Unremarkable. No cardiomegaly. Bones/joints: Unremarkable. XR/XR chest 1V portable [id number] IMPRESSION: No acute findings. Radiation Dose CTDIVOL = (mGy): DLP = (mGy-cm) Dictated By: Ashish Alvarenga MD Signed By: Ashish Alvarenga MD Signed Date/Time: 04/24/212222 DD/ 27 EKG Data^: EKG 1: Attestation: I personally reviewed and interpreted this EKG as follows: EKG interpretation date: 04/24/21 EKG interpretation time: 21:39 Interpretation: nsr hr [address] or t wave abnormalities qrs 96 qtc 425 Discharge Plan Discharge Patient Disposition: Home Clinical Impression: Weakness Condition: Stable Prescriptions: No Action cholecalciferol (vitamin D3) 125 mcg (5,000 unit) capsule 125 mcg PO QAM RF: 0 lamotrigine 100 mg tablet 150 mg PO BID RF: 0 levothyroxine 75 mcg tablet 75 mcg PO QAM Qty: 90 RF: 3 meloxicam 7.5 mg tablet 7.5 mg PO BIDWMEAL Qty: 60 RF: 1 tramadol 50 mg tablet 25 mg PO Q8H PRN (Reason: pain) Qty: 30 RF: 0 valsartan-hydrochlorothiazide 320-25 mg tablet 1 tab PO QAM Qty: 90 RF: 2 carvedilol 12.5 mg tablet 18.75 mg PO BID RF: 0 spironolactone 25 mg tablet 12.5 mg PO QAM RF: 0 aspirin 81 mg tablet,delayed release (DR/EC) 81 mg PO DAILY Qty: 30 RF: 0 Discharge Orders: Discharge ED (Routine); Ordered 04/24/21 Ordered By: Josh Melo Referrals: César Lockhart MD [Primary Care Provider] - Discharge Diet: Advance as tolerated Discharge Activity: Resume usual activity Patient Instructions: Weakness (ED) Coding Level of Care Code ED Smelter Liner for Chg Fwd Exam Comprehensive NIH stroke score NIHSS Level Of Consciousness - 1a: 0 Level Of Consciousness Questions - 1b: Both Correct Level Of Consciousness Commands - 1c: Both Correct Best Gaze - 2: Normal Visual Colon - 3: No Visual Loss Facial Palsy - 4: Normal Motor Arm Right - 5: No Drift Motor Arm Left - 5: No Drift Motor Leg Right - 6: No Drift Motor Leg Left - 6: No Drift Limb Ataxia - 7: Absent Sensory - 8: Normal Best Language - 9: No Aphasia Dysarthia - 10: Normal Extinction And Inattention - 11: 0 Score Total Score: 0
[2021-04-24] MEDS: sodium chloride 0.9% 1,000 ML 999 ML IV (21:30)
[2021-04-24 21:55] LABS: Basophils # 0.1 10^3/uL (0.0-0.1); Basophils % 1.6 %; Eosinophils # 0.3 10^3/uL (0.0-0.8); Eosinophils % 3.8 %; Hematocrit 35.9 % (37.0-47.0); Hemoglobin 11.7 g/dL (11.5-15.3); Mean Corpuscular HGB Conc 32.6 g/dL (30.0-36.0); Mean Corpuscular Hemoglobin 28.6 pg (28.0-34.0); Mean Corpuscular Volume 87.8 fl (81-99); Mean Platelet Volume 10.2 fL (7.4-10.4); Monocytes # 0.6 10^3/uL (0.2-0.9); Monocytes % 8.8 %; Neutrophils # 4.27 10^3/uL (1.8-7.7); Neutrophils % 58.5 %; Nucleated Red Blood Cells % 0 %; Platelet Count 269 10^3/cmm (130-400); Red Blood Count 4.09 10^6/uL (4.1-5.3); White Blood Count 7.3 10^3/uL (4.0-10.0)
[2021-04-24 22:14] VITALS: BP 184/80; PULSE 67; RESP 20; O2SAT 97
[2021-04-24 22:40] LABS: Alanine Aminotransferase 14 U/L (0-33); Albumin Level 4.1 g/dL (3.5-5.2); Alkaline Phosphatase 89 IU/L (35-105); Anion Gap 15.9 (5-19); Aspartate Amino Transferase 17 U/L (0-32); Blood Urea Nitrogen 19 mg/dL (8-23); Carbon Dioxide 25 mmol/L (22-29); Chloride 92 mmol/L (98-107); Globulin 2.3 g/dL (1.3-4.6); Glucose 100 mg/dL (65-115); Osmolality Calculated 270 mOsm/kg (285-295); Potassium 3.9 mmol/L (3.5-5.1); Sodium 129 mmol/L (136-145); Thyroid Stimulating Hormone 5.26 uIU/mL (0.27-4.20); Total Bilirubin 0.2 mg/dL (0.15-1.2); Total Protein 6.4 g/dL (6.6-8.7)
[2021-04-24 22:44] VITALS: BP 173/73
[2021-04-24 22:51] LABS: INR 0.84 (0.8-1.2)
[2021-04-24 23:09] LABS: Add Urine Microscopic? YES; Bilirubin Urine 1+ (Negative); Blood Urine Neg (Negative); Glucose Urine UA Norm (Normal); Ketones Urine Negative (Negative); Leukocyte Esterase Urine 2+ (Negative); Nitrate Urine Negative (Negative); Protein Urine Trace (Negative); RBC Urine RARE /hpf (0-2); Urine Appearance Clear (CLEAR); Urine Color Yellow (Yellow); Urobilinogen Urine Neg (Negative); WBC Urine 15-25 /hpf (0-5); pH Urine 5 (5-7)
[2021-04-24 23:10] LABS: Amorphous Sediment Urine 1+ /hpf; Bacteria Urine TRACE /hpf; Mucus Urine 4+ /hpf; Squamous Epithelial Cell Urine 0-4 /hpf (0-5)
[2021-04-24 23:11] LABS: Add Urine Culture? No
[2021-04-24 23:33] VITALS: BP 166/60; PULSE 75; RESP 16; O2SAT 97
== END 2021-04-24 23:34 | disposition home or self-care (01) ==
PROVIDERS: Emergency Provider Emergency Medicine; PCP Family Medicine Adult Medicine
DX: R53.1 Weakness (principal); I42.9 Cardiomyopathy, unspecified; Z87.820 Personal history of traumatic brain injury; G89.29 Other chronic pain; I10 Essential (primary) hypertension; I25.10 Atherosclerotic heart disease of native coronary artery without angina pectoris; Z79.82 Long term (current) use of aspirin; Z79.891 Long term (current) use of opiate analgesic
CPT/HCPCS: 70450; 71045; 80053; 81001; 84443; 85025; 85610; 93005; 96360; 99284; J7030

== ENCOUNTER 2021-05-01 06:00 | Outpatient (RCR) | payer MEDICARE, SELFPAY | END 2021-05-31 23:59 | disposition home or self-care (01) | LOC: TPT 06:00 | PROVIDERS: PCP Family Medicine Adult Medicine; Visit Provider Family Medicine Adult Medicine | DX: R29.898 Other symptoms and signs involving the musculoskeletal system (principal) | CPT/HCPCS: 97110; 97164 ==

== ENCOUNTER 2021-05-02 13:33 | Emergency (ER) | payer MEDICARE, SELFPAY ==
[2021-05-02] VITALS (8 sets, daily range): BP systolic 119–191; BP diastolic 46–82; PULSE 68–80; RESP 14–20; TEMP 36.6; O2SAT 83–100
--- NOTE | 2021-05-02 13:55 | W.ED.SYNCOPE ---
HPI - Syncope General: Chief Complaint: Syncope Stated Complaint: SYNCOPAL EPISODE/ + LOC Time Seen by Provider: 05/02/21 13:54 History of Present Illness: HPI narrative: Ms. Lomeli is a 80-year-old lady with history of hypothyroidism, hypertension and seizure disorder who presents to the emergency department due to syncope. Over the past 6 months she has had recurrent episodes of syncope. She describes an abnormal feeling in knowing that they are coming on though no specific lightheadedness, dizziness, chest pain, or shortness of breath. They do not correlate with any particular activity including position changes. They appear to be coming more frequent. Today her episode occurred while in the kitchen, she was making a sandwich and subsequently syncopized. Family reports unresponsiveness for approximately 20 minutes without seizure-like activity. EMS arrived and found her to be hypotensive. Overall the course of symptoms has improved and she now feels fatigued however no other focal findings. No other changes in health, exacerbating, or alleviating factors. Review of Systems General: Reports: 10 or more systems reviewed and unremarkable except in HPI and below PFSH ED PFSH: Medical History Cardiomyopathy Cerebral vascular disease TIA on 03/01/2021 Chronic pain of right lower extremity Coronary artery disease Hypertension Hypothyroidism Osteoarthritis Right leg weakness Seizure disorder Surgical History Hx of foot surgery Hx of tubal ligation S/P cataract surgery Physical Exam Narrative: EXAM NARRATIVE: GENERAL/CONSTITUTIONAL -frail-appearing. No acute distress. Eyes - PERRL, no conjunctival injection ENMT - Atraumatic external nose and ears. Moist mucous membranes NECK - supple. trachea midline CARDIOVASCULAR - regular rate and rhythm. Normal peripheral perfusion RESPIRATORY -clear to auscultation bilaterally. ABDOMEN/GI - Nontender/Nondistended. MSK - Extremities without obvious deformity or tenderness to palpation SKIN - Warm, Dry NEURO - alert and appropriately oriented. Cranial nerves II through XII intact. Coordination, strength, and sensation intact. Moves all extremities equally. Course ED course: - Patient was seen and evaluated by me at bedside - Patient placed on cardiac monitors, IV access obtained - Initial evaluation notable for mildly frail appearance, no acute distress, no neurologic deficits appreciated on clinical exam. - Labs notable for no leukocytosis. No acute metabolic abnormalities to explain patient's symptoms. Delta troponin negative. TSH normal. - Imaging notable for head CT is negative for acute intracranial process however patient does have a fracture involving the anterior arch of the left recommendation for CT imaging without need for CTA. CT neck redemonstrates this finding, appears to be present but not identified on previous study and is new from 03/01. I discussed this case with neurosurgery in [place], given isolated anterior arch fracture patient will be placed in [place] collar with follow-up with neurosurgery. No indication for emergent transfer. - Upon serial reexamination after treatment the patient was similar. - This is a challenging situation as patient has recurrent episodes. She had an increase in antiepileptic medication and description of symptoms is not consistent with generalized seizures. Duration of episodes is unlikely to be related to arrhythmia. She did have a echocardiogram in January 2020 which did show some cardiac disease. A carotid ultrasound in August 2020 did not reveal significant stenosis. Additionally she has seen cardiology as recently as March. I do not think that the patient would benefit from additional inpatient testing at this time. - Based on patient history, evaluation, labs, and imaging as interpreted the most likely cause of the patient's condition is recurrent falls/syncope of unclear etiology and C1 fracture. - The results of ED evaluation were discussed with the patient including prescriptions and/or symptomatic cares (if applicable) including appropriate and responsible use, followup plan, and return precautions. The patient verbalized understanding and felt safe for discharge. - Patient discharged in satisfactory condition. Patient's oxygen saturation remained adequate throughout entire ED course, I believe that the last recorded SPO2 of 83% was erroneously entered and the patient in fact had better oxygen saturation at time of discharge. Vital Signs: Vital signs: Vital Signs Temperature 97.9 F 05/02/21 13:46 Pulse Rate 72 05/02/21 20:00 Respiratory Rate 16 05/02/21 20:00 Blood Pressure 158/64 05/02/21 20:00 Pulse Oximetry 83 L 05/02/21 20:00 MDM - Syncope Medical Records: Attestation: I reviewed the patient's medical records. Lab Data: Attestation: I reviewed the patient's lab results. Labs: Lab Results 05/02/21 05/02/21 05/02/21 14:48 14:48 14:48 WBC 7.7 10^3/uL 10^3/ uL (4.0-10.0) RBC 4.31 10^6/uL 10^6 /uL (4.1-5.3) Hgb 12.4 g/dL g/dL (11.5-15.3) Hct 38.0 % % (37.0-47.0) MCV 88.2 fl fl (81-99) MCH 28.8 pg pg (28.0-34.0) MCHC 32.6 g/dL g/dL (30.0-36.0) RDW 13.9 % % (12.1-15.1) Plt Count 265 10^3/cmm 10^3 /cmm (130-400) MPV 10.5 fL H fL (7.4-10.4) Neut % (Auto) 77.1 % % Lymph % (Auto) 14.3 % % [place] % (Auto) 5.4 % % Eos % (Auto) 1.7 % % Baso % (Auto) 1.2 % % Neut # (Auto) 5.97 10^3/uL 10^3 /uL (1.8-7.7) Lymph # (Auto) 1.1 10^3/uL 10^3/ uL (0.8-4.8) [place] # (Auto) 0.4 10^3/uL 10^3/ uL (0.2-0.9) Eos # (Auto) 0.1 10^3/uL 10^3/ uL (0.0-0.8) Baso # (Auto) 0.1 10^3/uL 10^3/ uL (0.0-0.1) Nucleated RBC % (a uto) 0 % % Nucleated RBCs # 0.0 /100WBC /100W BC Sodium 137 mmol/L mmol/L (136-145) Potassium 4.4 mmol/L mmol/L (3.5-5.1) Chloride 100 mmol/L mmol/L (98-107) Carbon Dioxide 23 mmol/L mmol/L (22-29) Anion Gap 18.4 (5-19) BUN 15 mg/dL mg/dL (8-23) Creatinine 0.9 mg/dL mg/dL (0.5-0.9) GFR Calculation Not Reportable Glucose 107 mg/dL mg/dL (65-115) Calculated Osmolal ity 285 mOsm/kg mOsm/ kg (285-295) Calcium 8.8 mg/dL mg/dL (8.5-10.5) Total Bilirubin 0.3 mg/dL mg/dL (0.15-1.2) AST 17 U/L U/L (0-32) ALT 15 U/L U/L (0-33) Alkaline Phosphata se 79 IU/L IU/L (35-105) Troponin T Baselin e 13 ng/L H ng/L (0-10) Troponin T 120 Min [place] Delta Troponin T Total Protein 6.1 g/dL L g/dL (6.6-8.7) Albumin 4.3 g/dL g/dL (3.5-5.2) Globulin 1.8 g/dL g/dL (1.3-4.6) TSH 1.65 uIU/mL uIU/m L (0.27-4.20) 05/02/21 17:02 WBC RBC Hgb Hct MCV MCH MCHC RDW Plt Count MPV Neut % (Auto) Lymph % (Auto) [place] % (Auto) Eos % (Auto) Baso % (Auto) Neut # (Auto) Lymph # (Auto) [place] # (Auto) Eos # (Auto) Baso # (Auto) Nucleated RBC % (a uto) Nucleated RBCs # Sodium Potassium Chloride Carbon Dioxide Anion Gap BUN Creatinine GFR Calculation Glucose Calculated Osmolal ity Calcium Total Bilirubin AST ALT Alkaline Phosphata se Troponin T Baselin e Troponin T 120 Min [place] 13.08 ng/L H ng/L (0-10) Delta Troponin T 0.08 ABS# ABS# (0-10) Total Protein Albumin Globulin TSH EKG Data^: EKG 1: Attestation: I personally reviewed and interpreted this EKG as follows: EKG interpretation date: 05/02/21 EKG interpretation time: 14:04 Interpretation: Twelve-lead EKG shows a regular rhythm at a rate of 64. TX interval 170, QRS duration 102, QTc 454. Borderline axis Interpretation: Sinus rhythm with nonspecific ST segment abnormalities which are similar to prior. Discharge Plan Discharge Patient Disposition: Home Clinical Impression: Syncope, Fracture of anterior arch of C1 Condition: Stable Prescriptions: No Action cholecalciferol (vitamin D3) 125 mcg (5,000 unit) capsule 125 mcg PO QAM RF: 0 tramadol 50 mg tablet 25 mg PO Q8H PRN (Reason: pain) Qty: 30 RF: 0 carvedilol 12.5 mg tablet 18.75 mg PO BID RF: 0 spironolactone 25 mg tablet 12.5 mg PO QAM RF: 0 lamotrigine 150 mg tablet 150 mg PO BID RF: 0 aspirin 81 mg tablet,delayed release (DR/EC) 81 mg PO DAILY RF: 0 levothyroxine 75 mcg tablet 75 mcg PO QAM RF: 0 valsartan-hydrochlorothiazide 320-25 mg tablet 1 tab PO QAM RF: 0 Discharge Orders: Discharge ED (Routine); Ordered 05/02/21 Ordered By: Bobby Freeman Referrals: César Lockhart MD [Primary Care Provider] - Discharge Diet: Usual diet Discharge Activity: Limit activity as instructed Patient Instructions: Syncope (ED), [place] Collar (ED) Activity Restrictions/Additional Instructions: Thank you for visiting the emergency department. You were seen and evaluated for syncope. The exact cause of your symptoms and recurrent syncope is unclear. As discussed you do have a fracture of the anterior arch of C1. You should follow-up with your neurosurgeon regarding this, call to schedule an appointment. Wear your [place] collar as instructed. Please follow-up with your neurologist, cardiology, and your primary care provider. Please return to the emergency department for recurrent symptoms, any new neurologic symptoms, or anything else that you are concerned about and feel needs emergency department evaluation. Coding Level of Care Code ED Tap Dancer for Michelle Urias
--- NOTE | 2021-05-02 14:19 | ECG_ITS ---
[facility] Test Date: 2021-05-02 Pat Name: Sujata Lomeli Department: Room: Gender: Female Social Worker Delinquency Prevention: : 1940 Requested By: Bobby Freeman Order Number: [id number] Dany MD: Adalgisa Jacobsen M.D. Measurements Intervals [place] Rate: 64 P: 20 WI: 170 QRS: -14 QRSD: 102 T: -12 QT: 437 QTc: 454 Interpretive Statements SINUS RHYTHM MODERATE VOLTAGE CRITERIA FOR LVH, CONSIDER NORMAL VARIANT [MEETS CRITERIA IN ONE OF: R(aVL), S(V1), R(V5), R(V5/V6)+S(V1)] Compared to ECG 04/24/2021 21:39:30 No significant changes Electronically Signed On 05-02-2021 16:03:16 COMIC ARTIST by Adalgisa Jacobsen M.D. [id number]
--- NOTE | 2021-05-02 14:19 | CTR_ITS ---
PROCEDURE INFORMATION: Exam: CT Head Without Contrast Exam date and time: 05/02/2021 2:19 PM Age: 80 years old Clinical indication: Syncope and collapse. Altered mental status. TECHNIQUE: Imaging protocol: Computed tomography of the head without contrast. Radiation optimization: All CT scans at this facility use at least one of these dose optimization techniques: automated exposure control; mA and/or kV adjustment per patient size (includes targeted exams where dose is matched to clinical indication); or iterative reconstruction. COMPARISON: CT head wo con* [id number] 04/24/2021 9:53 PM RADIATION DOSE METRICS: Total DLP (mGy-cm): 852.43 FINDINGS: Brain: No acute intracranial hemorrhage. Unchanged lacunar infarct in the right basal ganglia. No mass, mass effect or midline shift.. There is no evidence of acute large vessel infarct.. There is moderate patchy subcortical and periventricular hypodensity, most commonly associated with small vessel ischemic disease of indeterminate age. The posterior fossa is grossly unremarkable; however, it is partially obscurred by beam hardening artifact. Cerebral ventricles: The ventricles are prominent, compatible with moderate parenchymal volume loss. Paranasal sinuses: The visualized paranasal sinuses are clear. Mastoid air cells: No mastoid effusion. Orbital cavity: The visualized orbits are unremarkable. Bones/joints: There is an acute fracture involving the anterior arch of C1 on the left. CT/CT head wo con* [id number] IMPRESSION: 1. Acute fracture involving the anterior arch of C1 on the left. 2. Moderate senescent changes as above. 3. No acute intracranial abnormality is identified. Radiation Dose CTDIVOL = (mGy): DLP = 852.43 (mGy-cm)
--- NOTE | 2021-05-02 14:19 | XR_ITS ---
WS: [id number] Portable AP upright chest, 05/02/2021 Clinical Data: syncope Comparison: Portable chest, 04/24/2021. Findings: No nodules, masses or effusions are seen. The heart is normal. The pulmonary vascularity is not increased. No pneumonia or pneumothorax is seen. The descending thoracic aorta shows mild tortuo sity. There is a hiatal hernia behind the heart. Monitor leads are on the chest wall. There is a levo scoliosis of the thoracic spine. XR/XR chest 1V portable [id number] Impression: Atherosclerosis.
[2021-05-02 14:59] LABS: Basophils # 0.1 10^3/uL (0.0-0.1); Basophils % 1.2 %; Eosinophils # 0.1 10^3/uL (0.0-0.8); Eosinophils % 1.7 %; Hemoglobin 12.4 g/dL (11.5-15.3); Lymphocytes # 1.1 10^3/uL (0.8-4.8); Lymphocytes % 14.3 %; Mean Corpuscular HGB Conc 32.6 g/dL (30.0-36.0); Mean Corpuscular Hemoglobin 28.8 pg (28.0-34.0); Mean Corpuscular Volume 88.2 fl (81-99); Mean Platelet Volume 10.5 fL (7.4-10.4); Monocytes # 0.4 10^3/uL (0.2-0.9); Monocytes % 5.4 %; Neutrophils # 5.97 10^3/uL (1.8-7.7); Neutrophils % 77.1 %; Nucleated Red Blood Cells % 0 %; Platelet Count 265 10^3/cmm (130-400); Red Blood Count 4.31 10^6/uL (4.1-5.3); Red Cell Distribution Width 13.9 % (12.1-15.1); White Blood Count 7.7 10^3/uL (4.0-10.0)
--- NOTE | 2021-05-02 15:01 | PC.PHAR ---
pt states she takes care of her own medications-pt states she doesnt take mobic anymore rx was filled on 04/16/21 30d/s 7.5mg bid-pt states she still takes valsartan-hctz 320-25 daily rx last filled on 03/04/21 7d/s-notes are made in the pharmacy comments
--- NOTE | 2021-05-02 15:26 | CTR_ITS ---
PROCEDURE INFORMATION: Exam: CT Cervical Spine Without Contrast Exam date and time: 05/02/2021 3:26 PM Age: 80 years old Clinical indication: Fall with blunt trauma. Anterior C1 arch fracture. TECHNIQUE: Imaging protocol: Computed tomography images of the cervical spine without contrast. Radiation optimization: All CT scans at this facility use at least one of these dose optimization techniques: automated exposure control; mA and/or kV adjustment per patient size (includes targeted exams where dose is matched to clinical indication); or iterative reconstruction. COMPARISON: CT cervical spin wo con* [id number] 03/01/2021 3:10 PM RADIATION DOSE METRICS: Total DLP (mGy-cm): 737.23 FINDINGS: There is a fracture involving the anterior arch of C1 on the left. The cervical lordosis is maintained. No prevertebral soft tissue swelling is seen. Ynhx-bz-cblornci degenerative disc disease is seen in the cervical spine. No acute fracture is identified. The atlantoaxial interval and craniocervical junction are maintained. Small, scattered cervical lymph nodes are noted. There is scarring in the lung apices. A pretracheal lymph node measures 1.1 x 1.3 cm. A precarinal lymph node measures 1.[address]/CT cervical spin wo con* [id number] IMPRESSION: 1. Fracture involving the anterior arch of C1 on the left. This was present on CT brain from 04/24/2021. This is new from 03/01/2021. 2. Fszn-ho-qigfkugz degenerative disc disease in the cervical spine. 3. Mediastinal lymphadenopathy. Consider nonemergent CT chest to further assess. Radiation Dose CTDIVOL = (mGy): DLP = 737.23 (mGy-cm)
[2021-05-02 15:40] LABS: Troponin(5th) Baseline 13 ng/L (0-10)
[2021-05-02 15:49] LABS: Alanine Aminotransferase 15 U/L (0-33); Albumin Level 4.3 g/dL (3.5-5.2); Alkaline Phosphatase 79 IU/L (35-105); Anion Gap 18.4 (5-19); Aspartate Amino Transferase 17 U/L (0-32); Blood Urea Nitrogen 15 mg/dL (8-23); Calcium 8.8 mg/dL (8.5-10.5); Carbon Dioxide 23 mmol/L (22-29); Chloride 100 mmol/L (98-107); Globulin 1.8 g/dL (1.3-4.6); Glucose 107 mg/dL (65-115); Osmolality Calculated 285 mOsm/kg (285-295); Potassium 4.4 mmol/L (3.5-5.1); Sodium 137 mmol/L (136-145); Thyroid Stimulating Hormone 1.65 uIU/mL (0.27-4.20); Total Bilirubin 0.3 mg/dL (0.15-1.2); Total Protein 6.1 g/dL (6.6-8.7)
[2021-05-02 17:37] LABS: Troponin 5 2HR 13.08 ng/L (0-10); Troponin 5 2HR Delta 0.08 ABS# (0-10)
--- NOTE | 2021-05-03 10:32 | DCPLANNER ---
clinical pharmacy manager had message to schedule an outpatient holter monitor for patient. clinical pharmacy manager faxed a signed order to [facility] care for halter monitor. [facility] will call patient with appointment information.
--- NOTE | 2021-05-07 11:47 | DCPLANNER ---
sales marketing manager had message to schedule an outpatient echo cardiogram for patient. sales marketing manager faxed signed order to centralized scheduling, who will call patient with appointment information.
--- NOTE | 2021-05-09 07:54 | DCPLANNER ---
Patient had a 21 day event monitor appointment scheduled - appointment cancelled by patient.
--- NOTE | 2021-06-13 06:54 | DCPLANNER ---
Addendum entered by Katya Contreras 07/26/21 12:14: Patient had a follow up appointment scheduled for 07.08.21 - patient did attend appointment. Original Note: Patient has an outpatient echo cardiogram scheduled for Thursday, July 08, 2021 at 7:15, centralized scheduling will call patient with appointment information.
== END 2021-05-02 20:19 | disposition home or self-care (01) ==
PROVIDERS: Emergency Provider Emergency Medicine; PCP Family Medicine Adult Medicine
DX: R55 Syncope and collapse (principal); S12.091A Other nondisplaced fracture of first cervical vertebra, initial encounter for closed fracture; Z79.82 Long term (current) use of aspirin; Z86.73 Personal history of transient ischemic attack (TIA), and cerebral infarction without residual deficits; I25.10 Atherosclerotic heart disease of native coronary artery without angina pectoris; I10 Essential (primary) hypertension; W19.XXXA Unspecified fall, initial encounter
CPT/HCPCS: 70450; 71045; 72125; 80053; 84443; 84484; 85025; 93005; 99283

== ENCOUNTER 2021-05-23 13:05 | Emergency (ER) | payer MEDICARE, SELFPAY ==
[2021-05-23 13:08] VITALS: BP 142/80; PULSE 63; RESP 16; TEMP 36.6; O2SAT 99; BMI 29.0
--- NOTE | 2021-05-23 14:04 | W.ED.SEIZURE ---
HPI - Seizure General: Chief Complaint: Seizure Stated Complaint: AMS, SEIZURE LIKE ACTIVITY Time Seen by Provider: 05/23/21 13:35 History of Present Illness: HPI Narrative: 72-year-old female presents to the emergency room with complaints of having had a seizure. Has had episodes in the past had cardiac work-up recently referred to neurology. She describes seizures as being absence seizure's. She had an episode this morning where she appeared to be awake her eyes were open but she was nonresponsive this lasted for less than a minute. She did not really have any post ictal phase. MD complaint: seizure Onset (ago): minute(s) Trauma: No Seizure History: Yes Place: Home Possible Precipitating Event: none Associated symptoms: Deny chest pain, chills, confusion, cough, diaphoresis, fever(s), anorexia, malaise, rash, short of breath, syncope or weakness Treatments prior to arrival: none Review of Systems Const: Denies: fever(s), chills, malaise or diaphoresis ENMT: Denies: throat pain, ear or mastoid pain, nasal discharge or nasal congestion Card: Denies: chest pain or syncope Resp: Denies: dyspnea, productive cough or non-productive cough GI: Denies: abdominal pain, nausea, vomiting, hematemesis, coffee ground emesis, diarrhea, constipation, bloating, hematochezia or melena : Denies: flank pain, difficulty voiding, dysuria, urinary frequency or urinary urgency Skin/Breast: Denies: rash or pruritus Neuro: Denies: confusion PFSH ED PFSH: Medical History Cardiomyopathy Cerebral vascular disease TIA on 03/01/2021 Chronic pain of right lower extremity Coronary artery disease Hypertension Hypothyroidism Lumbosacral pain Osteoarthritis Right leg weakness Seizure disorder Syncope Surgical History Hx of foot surgery Hx of tubal ligation S/P cataract surgery Physical Exam Const: GENERAL APPEARANCE: cooperative and comfortable ORIENTATION/CONSCIOUSNESS: Yes awake, Yes oriented to person, Yes oriented to place and Yes oriented to time HENMT: COMMON NORMALS: normocephalic, atraumatic, hearing grossly normal bilaterally, external ears normal, EAC's normal, TM's normal bilaterally, Normal nasal mucous membranes and turbinates present, moist oral mucous membranes and oropharynx normal HEAD & SCALP: normocephalic and atraumatic NOSE: Normal nasal mucous membranes and turbinates present EXTERNAL EAR: Yes external ears normal EXTERNAL AUDITORY CANAL: EAC's normal TYMPANIC MEMBRANE: TM's normal bilaterally Eye: COMMON NORMALS: Equal, round and reactive pupils present, EOMs intact bilaterally, conjunctivae normal and no scleral icterus CONJUNCTIVA: Yes conjunctivae normal PUPIL: Yes Equal, round and reactive pupils present Neck/C-Spine: COMMON NORMALS: full ROM, no lymphadenopathy, supple and no JVD Lymph: LYMPHATIC: no lymphadenopathy noted and no lymphedema noted Resp: COMMON NORMALS: normal respiratory effort, No retractions, No use of accessory muscles and clear to auscultation bilaterally AUSCULTATION: clear to auscultation bilaterally Cardio: COMMON NORMALS: no JVD, regular rate, regular rhythm and No murmurs present (Cardio) RATE: regular rate RHYTHM: regular rhythm GI: COMMON NORMALS: Soft to palpation and No hepatosplenomegaly present AUSCULTATION: Yes normoactive bowel sounds PALPATION: Yes Soft to palpation, No Tenderness to palpation present (GI), No Guarding due to palpation present (GI) and Yes No hepatosplenomegaly present Extremity: COMMON NORMALS: normal to inspection, capillary refill normal, no clubbing, cyanosis or edema, no calf tenderness and no pedal edema Neuro: SENSORIUM/ORIENTATION: Yes oriented to person, Yes oriented to place and Yes oriented to time Skin: COMMON NORMALS: no rashes or lesions noted GENERAL SKIN EXAM: no rashes or lesions noted Course Vital Signs: Vital signs: Vital Signs Temperature 97.8 F 05/23/21 13:08 Pulse Rate 69 05/23/21 15:52 Respiratory Rate 16 05/23/21 15:52 Blood Pressure 117/63 05/23/21 15:52 Pulse Oximetry 100 05/23/21 15:52 MDM - Seizure MDM Narrative: Medical decision making narrative: Patient has a known history of seizure disorder and is currently on seizure medications. Reviewing the chart I do not see that she has had an EEG and discussing with her she does not recall ever having any EEG. We will get her set up for an outpatient EEG and then have her follow-up with neurology return if she has worsening problems. Lab Data: Labs: Lab Results 05/23/21 05/23/21 05/23/21 15:00 15:00 15:00 WBC 6.8 10^3/uL 10^3/ uL (4.0-10.0) RBC 4.15 10^6/uL 10^6 /uL (4.1-5.3) Hgb 12.0 g/dL g/dL (11.5-15.3) Hct 35.3 % L % (37.0-47.0) MCV 85.1 fl fl (81-99) MCH 28.9 pg pg (28.0-34.0) MCHC 34.0 g/dL g/dL (30.0-36.0) RDW 13.6 % % (12.1-15.1) Plt Count 246 10^3/cmm 10^3 /cmm (130-400) MPV 10.7 fL H fL (7.4-10.4) Neut % (Auto) 78.7 % % Lymph % (Auto) 13.5 % % [place] % (Auto) 6.0 % % Eos % (Auto) 1.0 % % Baso % (Auto) 0.7 % % Neut # (Auto) 5.34 10^3/uL 10^3 /uL (1.8-7.7) Lymph # (Auto) 0.9 10^3/uL 10^3/ uL (0.8-4.8) [place] # (Auto) 0.4 10^3/uL 10^3/ uL (0.2-0.9) Eos # (Auto) 0.1 10^3/uL 10^3/ uL (0.0-0.8) Baso # (Auto) 0.1 10^3/uL 10^3/ uL (0.0-0.1) Nucleated RBC % (a uto) 0 % % Nucleated RBCs # 0.0 /100WBC /100W BC Sodium 133 mmol/L L mmol /L (136-145) Potassium 4.1 mmol/L mmol/L (3.5-5.1) Chloride 96 mmol/L L mmol/ L (98-107) Carbon Dioxide 22 mmol/L mmol/L (22-29) Anion Gap 19.1 H (5-19) BUN 21 mg/dL mg/dL (8-23) Creatinine 1.0 mg/dL H mg/dL (0.5-0.9) GFR Calculation Not Reportable Glucose 108 mg/dL mg/dL (65-115) Calculated Osmolal ity 280 mOsm/kg L mOs m/kg (285-295) Calcium 9.1 mg/dL mg/dL (8.5-10.5) Magnesium 1.9 mg/dL mg/dL (1.7-2.3) Total Bilirubin 0.3 mg/dL mg/dL (0.15-1.2) AST 15 U/L U/L (0-32) ALT 11 U/L U/L (0-33) Alkaline Phosphata se 71 IU/L IU/L (35-105) Total Protein 6.4 g/dL L g/dL (6.6-8.7) Albumin 3.9 g/dL g/dL (3.5-5.2) Globulin 2.5 g/dL g/dL (1.3-4.6) Lamotrigine 7.4 mcg/mL mcg/mL (4.0-18.0) Discharge Plan Discharge Patient Disposition: Home Clinical Impression: Seizure disorder, Hypertension Condition: Stable Prescriptions: No Action cholecalciferol (vitamin D3) 125 mcg (5,000 unit) capsule 125 mcg PO QAM RF: 0 carvedilol 12.5 mg tablet 12.5 mg PO BID Qty: 60 RF: 5 Keppra 500 mg tablet 250 mg PO BID Qty: 60 RF: 2 lamotrigine 150 mg tablet 150 mg PO BID RF: 0 aspirin 81 mg tablet,delayed release (DR/EC) 81 mg PO DAILY RF: 0 levothyroxine 75 mcg tablet 75 mcg PO QAM RF: 0 valsartan-hydrochlorothiazide 320-25 mg tablet 1 tab PO QAM RF: 0 Discharge Orders: Discharge ED (Routine); Ordered 05/23/21 Ordered By: Julien Hyde Referrals: César Lockhart MD [Primary Care Provider] - Discharge Diet: Usual diet Discharge Activity: Limit activity as instructed Patient Instructions: Opioid Safety Activity Restrictions/Additional Instructions: Follow-up with your surgeon next week recommend calling them. junior assistant manager will make arrangements for you to have a EEG done. Coding Level of Care Code ED Quality Assurance/R&D Lab Technician for Chg Fwd Exam Comprehensive
[2021-05-23 15:10] LABS: Basophils # 0.1 10^3/uL (0.0-0.1); Basophils % 0.7 %; Eosinophils # 0.1 10^3/uL (0.0-0.8); Hematocrit 35.3 % (37.0-47.0); Lymphocytes # 0.9 10^3/uL (0.8-4.8); Lymphocytes % 13.5 %; Mean Corpuscular Hemoglobin 28.9 pg (28.0-34.0); Mean Corpuscular Volume 85.1 fl (81-99); Mean Platelet Volume 10.7 fL (7.4-10.4); Monocytes # 0.4 10^3/uL (0.2-0.9); Neutrophils # 5.34 10^3/uL (1.8-7.7); Neutrophils % 78.7 %; Nucleated Red Blood Cells % 0 %; Platelet Count 246 10^3/cmm (130-400); Red Blood Count 4.15 10^6/uL (4.1-5.3); Red Cell Distribution Width 13.6 % (12.1-15.1); White Blood Count 6.8 10^3/uL (4.0-10.0)
[2021-05-23 15:30] LABS: Alanine Aminotransferase 11 U/L (0-33); Albumin Level 3.9 g/dL (3.5-5.2); Alkaline Phosphatase 71 IU/L (35-105); Anion Gap 19.1 (5-19); Aspartate Amino Transferase 15 U/L (0-32); Blood Urea Nitrogen 21 mg/dL (8-23); Calcium 9.1 mg/dL (8.5-10.5); Carbon Dioxide 22 mmol/L (22-29); Chloride 96 mmol/L (98-107); Globulin 2.5 g/dL (1.3-4.6); Glucose 108 mg/dL (65-115); Magnesium 1.9 mg/dL (1.7-2.3); Osmolality Calculated 280 mOsm/kg (285-295); Potassium 4.1 mmol/L (3.5-5.1); Sodium 133 mmol/L (136-145); Total Bilirubin 0.3 mg/dL (0.15-1.2); Total Protein 6.4 g/dL (6.6-8.7)
[2021-05-23 15:32] VITALS: BP 145/71; PULSE 70; O2SAT 97
[2021-05-23 15:52] VITALS: BP 117/63; PULSE 69; RESP 16; O2SAT 100
--- NOTE | 2021-05-24 05:02 | DCPLANNER ---
court manager had message to schedule an outpatient EEG for patient. court manager faxed signed order to centralized scheduling, who will call patient with appointment information.
[2021-05-27 16:52] LABS: Lamotrigine (Lamictal) Level 7.4 mcg/mL (4.0-18.0)
--- NOTE | 2021-06-13 07:17 | DCPLANNER ---
Addendum entered by Katya Contreras 07/05/21 10:26: Patient had a followup appointment scheduled for 06.27.21 for an EEG - patient did attend appointment. Original Note: Patient has an outpatient EEG scheduled for June at 10:00. Centralized scheduling will call patient with appointment information.
== END 2021-05-23 15:53 | disposition home or self-care (01) ==
PROVIDERS: Emergency Provider Family Medicine; PCP Family Medicine Adult Medicine
DX: G40.909 Epilepsy, unspecified, not intractable, without status epilepticus (principal); I10 Essential (primary) hypertension; Z79.82 Long term (current) use of aspirin; Z86.73 Personal history of transient ischemic attack (TIA), and cerebral infarction without residual deficits; I25.10 Atherosclerotic heart disease of native coronary artery without angina pectoris
CPT/HCPCS: 80053; 80175; 83735; 85025; 96374; 99284; J1953

== ENCOUNTER 2021-06-01 06:00 | Outpatient (RCR) | payer MEDICARE, SELFPAY | END 2021-07-01 23:59 | disposition home or self-care (01) | LOC: TPT 06:00 | PROVIDERS: PCP Family Medicine Adult Medicine; Visit Provider Family Medicine Adult Medicine | DX: R29.890 Loss of height (principal) | CPT/HCPCS: 97110 ==

== ENCOUNTER → 2021-06-27 10:26 | Outpatient (BNVA) | payer MEDICARE, SELFPAY | PROVIDERS: PCP Family Medicine Adult Medicine; Visit Provider Specialist | DX: G40.909 Epilepsy, unspecified, not intractable, without status epilepticus (principal); R55 Syncope and collapse | CPT/HCPCS: 95816 ==

== ENCOUNTER 2021-07-02 06:00 | Outpatient (RCR) | payer MEDICARE, SELFPAY | END 2021-07-29 23:59 | disposition home or self-care (01) | LOC: TPT 06:00 | PROVIDERS: PCP Family Medicine Adult Medicine; Visit Provider Family Medicine Adult Medicine | DX: R29.898 Other symptoms and signs involving the musculoskeletal system (principal) | CPT/HCPCS: 97110; 97116; 97164 ==

== ENCOUNTER 2021-07-08 07:01 | Outpatient (CLI) | payer MEDICARE, SELFPAY ==
--- NOTE | 2021-07-08 | USCV_ITS ---
Transthoracic Echo Sujata Lomeli Age: 80 Gender: F : 1940 Exam Date: 07/08/2021 07:24 Ordering Phys: Julien Hyde DO Technologist: RAPHAEL Exam Location: [facility] – [place] Indication: SYNCOPE BP: 160 / 90 HR: 67 Rhythm: Sinus Technical Quality: Adequate MEASUREMENTS (Male / Female) Normal Values 2D ECHO LV Diastolic Diameter PLAX 3.9 cm 4.2 - 5.9 / 3.9 - 5.3 cm LV Systolic Diameter PLAX 2.7 cm IVS Diastolic Thickness 1.2 cm 0.6 - 1.0 / 0.6 - 0.9 cm IVS Systolic Thickness 1.4 cm LVPW Diastolic Thickness 1.8 cm 0.6 - 1.0 / 0.6 - 0.9 cm LVPW Systolic Thickness 1.9 cm LVOT Diameter 2.0 cm LV Ejection Fraction 2D Teich 59.6 % LV Ejection Fraction MOD 2C 73.1 % LV Ejection Fraction 2C AL 73.0 % LA Diameter 4.0 cm LA Width 3.6 cm LA Height 6.1 cm RA Width 4.0 cm RA Height 3.3 cm Aorta at Sinotubular Diameter 2.3 cm M-MODE Aortic Annulus Diameter 2.7 cm LA Ao Ratio MM 1.6 MV E Point Septal Separation 1.1 cm DOPPLER AV Peak Velocity 109.0 cm/s LVOT Peak Velocity 61.0 cm/s AV Area Cont Eq vti 2.7 cm squared AV Area Cont Eq pk 1.8 cm squared MV Peak Velocity 120.0 cm/s MV Area PHT 4.6 cm squared Mitral E to A Ratio 0.9 MV E' Velocity 56.5 cm/s Mitral E to MV E' Ratio 17.8 Mitral E to LV E' Lateral Ratio 13.5 Mitral E to LV E' Septal Ratio 26.3 TR Peak Velocity 206.9 cm/s TR Peak Gradient 17.1 mmHg TR Mean Velocity 137.0 cm/s TR Mean Gradient 8.3 mmHg TR Velocity Time Integral 65.6 cm TV Peak E Velocity 72.0 cm/s Right Atrial Pressure 3.0 mmHg Pulmonary Artery Systolic Pressu 20.1 mmHg PV Peak Velocity 84.0 cm/s RV Acceleration Time 0.2 s RV Ejection Time 0.3 s RV AcT/ET 0.5 FINDINGS Left Ventricle Normal left ventricular size. LV systolic function is normal with EF of 50-55%. No regional wall motion abnormalities. Grade 1 diastolic dysfunction Right Ventricle The right ventricle is normal in size and function. Right Atrium The right atrium is normal in size. Left Atrium The left atrium is normal in size. Mitral Valve Structurally normal mitral valve without significant stenosis or prolapse. There is mild mitral regurgitation. Aortic Valve Aortic valve is thickened without significant stenosis. There is mild to moderate aortic regurgitation. Tricuspid Valve Structurally normal tricuspid valve without significant stenosis. Mild tricuspid regurgitation. Pulmonary artery systolic pressure is normal. Pulmonic Valve Structurally normal pulmonic valve without significant stenosis. There is mild pulmonic regurgitation. Pericardium Normal pericardium without effusion. Aorta Normal ascending aorta dimension. CONCLUSIONS LV systolic function is normla with EF of 50-55% Grade 1 diastolic dysfunction Mild mitral regurgitation Mild to moderate aortic regurgitation Mild pulmonic regurgitation Mild tricuspid regurgitation Compared to prior echocardiogram from 02/02/2020, LV systolic function has improved and EF is 50-55%. Aortic regurgitation has progressed and is mild to moderate now Adiel Shah MD (Electronically Signed) Final Date: 08 July 2021 10:37 S
== END 2021-07-08 07:02 | disposition home or self-care (01) ==
LOC: RAD 07:01
PROVIDERS: PCP Family Medicine Adult Medicine; Visit Provider Family Medicine Adult Medicine
DX: R55 Syncope and collapse (principal); I34.0 Nonrheumatic mitral (valve) insufficiency; I35.1 Nonrheumatic aortic (valve) insufficiency; I07.1 Rheumatic tricuspid insufficiency
CPT/HCPCS: 93306

== ENCOUNTER → 2021-09-18 10:39 | Outpatient (BNVA) | payer MEDICARE, SELFPAY | PROVIDERS: PCP Family Medicine Adult Medicine; Referring Provider Family Medicine Adult Medicine; Visit Provider Specialist | DX: M25.361 Other instability, right knee (principal); Z98.890 Other specified postprocedural states; R56.9 Unspecified convulsions; Z91.81 History of falling; M25.561 Pain in right knee | CPT/HCPCS: 73560; 73565; 99204; 99205 ==

== ENCOUNTER 2021-09-26 06:00 | Outpatient (RCR) | payer MEDICARE, SELFPAY | END 2021-09-28 23:59 | disposition home or self-care (01) | LOC: TPT 06:00 | PROVIDERS: Absent Provider Specialist; Family Provider Specialist; PCP Specialist; Referring Provider Specialist; Visit Provider Specialist | DX: R53.1 Weakness (principal) | CPT/HCPCS: 97110; 97163 ==

== ENCOUNTER 2021-09-29 06:00 | Outpatient (RCR) | payer MEDICARE, SELFPAY | END 2021-10-29 23:59 | disposition home or self-care (01) | LOC: TPT 06:00 | PROVIDERS: Absent Provider Specialist; Family Provider Specialist; PCP Specialist; Referring Provider Specialist; Visit Provider Specialist | DX: R53.1 Weakness (principal) | CPT/HCPCS: 97110 ==

== ENCOUNTER 2021-10-30 06:00 | Outpatient (RCR) | payer MEDICARE, SELFPAY | END 2021-11-28 23:59 | disposition home or self-care (01) | LOC: TPT 06:00 | PROVIDERS: PCP Specialist; Referring Provider Specialist; Visit Provider Specialist | DX: Z47.89 Encounter for other orthopedic aftercare (principal) | CPT/HCPCS: 97110 ==

== ENCOUNTER 2021-11-29 06:00 | Outpatient (RCR) | payer MEDICARE, SELFPAY | END 2021-12-29 23:59 | disposition home or self-care (01) | LOC: TPT 06:00 | PROVIDERS: PCP Specialist; Referring Provider Specialist; Visit Provider Specialist | DX: R29.898 Other symptoms and signs involving the musculoskeletal system (principal) | CPT/HCPCS: 97110 ==

== ENCOUNTER → 2021-12-12 10:41 | Outpatient (BNVA) | payer MEDICARE, SELFPAY | PROVIDERS: PCP Family Medicine Adult Medicine; Visit Provider Orthopaedic Surgery | DX: M54.50 Low back pain, unspecified (principal) | CPT/HCPCS: 72110; 99203; 99204 ==

== ENCOUNTER 2021-12-26 11:09 | Outpatient (CLI) | payer MEDICARE, SELFPAY ==
--- NOTE | 2021-12-26 11:00 | MR_ITS ---
WS: [id number] MRI LUMBAR SPINE NONCONTRAST TECHNIQUE: Sagittal T1, T2 and STIR imaging. Axial T1 and T2 imaging. CLINICAL INFORMATION: pain COMPARISON: MRI 2015 FINDINGS: Mild lumbar curve. No acute compression. Slight anterolisthesis L4 on L5. No high-grade central canal stenosis. Mild chronic anterior wedging at T11. L1-L2: Mild facet arthropathy. Spinal canal and foramen are patent. L2-L3: Mild annular bulging. Impingement on the LEFT subarticular recess and traversing LEFT L3 nerve root. Moderate facet arthropathy. Mild LEFT foraminal narrowing. L3-L4: Mild annular bulging. Slight impingement on the RIGHT subarticular recess and traversing RIGHT L4 nerve root. Moderate facet arthropathy. Mild LEFT foraminal narrowing. L4-L5: Mild disc bulging with slight effacement of ventral thecal sac. RIGHT hemilaminectomy at this level. Grade 1 anterolisthesis. Mild RIGHT foraminal narrowing. LEFT foramen is patent. Moderate face t arthropathy. L5-S1: Moderate facet arthropathy. Spinal canal and foramen are patent. L5 is partially sacralized. Visualized pelvic bony structures: Normal. Paravertebral soft tissues: Normal. MR/MR lumbar spine wo con* [id number] IMPRESSION: 1. Mild lumbar curve. No acute compression. No high-grade central canal stenos is. 2. Mild chronic anterior wedging at T12. 3. Slight anterolisthesis L4 on L5 slightly progressed. Mild RIGHT L4-L5 carrie inal narrowing and slight narrowing of the RIGHT subarticular recess. Presumed prior RIGHT hemilaminectomy at this level. 4. Mild annular bulging L2-L3 with mild central canal stenosis and impingement traversing LEFT L3 nerve root progressed compared to previous. Mild LEFT L2-L3 foraminal narrowing. 5. Mild central canal stenosis L3-L4 due to disc bulging with facet arthropath y and ligamentum flavum hypertrophy slightly progressed. Narrowing of the RIGHT greater than LEFT subarticular recess. 6. Mild LEFT L3-L4 foraminal narrowing with a tiny LEFT foraminal protrusion. 7. Moderate facet arthropathy L3-L4 and L4-L5.
== END 2021-12-26 11:10 | disposition home or self-care (01) ==
LOC: RAD 11:10
PROVIDERS: PCP Family Medicine Adult Medicine; Visit Provider Orthopaedic Surgery
DX: M48.54XA Collapsed vertebra, not elsewhere classified, thoracic region, initial encounter for fracture (principal); M48.061 Spinal stenosis, lumbar region without neurogenic claudication; M51.26 Other intervertebral disc displacement, lumbar region; M47.816 Spondylosis without myelopathy or radiculopathy, lumbar region
CPT/HCPCS: 72148

== ENCOUNTER 2021-12-30 06:00 | Outpatient (RCR) | payer MEDICARE, SELFPAY | END 2022-01-28 14:53 | disposition home or self-care (01) | LOC: TPT 06:00 | PROVIDERS: PCP Family Medicine Adult Medicine; Referring Provider Specialist; Visit Provider Specialist | DX: R53.1 Weakness (principal) | CPT/HCPCS: 97110 ==

== ENCOUNTER → 2022-01-02 13:51 | Outpatient (BNVA) | payer MEDICARE, SELFPAY | PROVIDERS: PCP Family Medicine Adult Medicine; Visit Provider Orthopaedic Surgery | DX: M48.062 Spinal stenosis, lumbar region with neurogenic claudication (principal) | CPT/HCPCS: 99214 ==

== ENCOUNTER → 2022-01-28 08:20 | Outpatient (BNVA) | payer MEDICARE, SELFPAY | PROVIDERS: PCP Family Medicine Adult Medicine; Visit Provider Anesthesiology Pain Medicine | DX: M48.062 Spinal stenosis, lumbar region with neurogenic claudication (principal); M51.16 Intervertebral disc disorders with radiculopathy, lumbar region; M47.816 Spondylosis without myelopathy or radiculopathy, lumbar region; G40.909 Epilepsy, unspecified, not intractable, without status epilepticus; R29.898 Other symptoms and signs involving the musculoskeletal system; M79.604 Pain in right leg; M79.605 Pain in left leg | CPT/HCPCS: 99204 ==

== ENCOUNTER 2022-02-11 12:54 | Outpatient (CLI) | payer MEDICARE, SELFPAY ==
--- NOTE | 2022-02-11 13:30 | XR_ITS ---
WS: [id number] DEXA (DUAL ENERGY X-RAY ABSORPTIOMETRY) Bone mineral density was performed using a POPSUGAR machine. HISTORY: compression fracture COMPARISON: 07/16/2016 Lumbar spine BMD (L1-L4): 1.054 g/cm2 T score: -1.0 Z score: 0.7 Total hip BMD: Left: 0.932 g/cm2. T score: -0.6 Z score: 1.3 Right: 0.923 g/cm2. T score: -0.7 Z score: 1.2 10 year probability of a major osteoporotic fracture is 12.1%. Compared to the prior study from 07/16/2016. Lumbar spine bone mineral density has increased by 0.4%. Bilateral hips bone mineral density has decreased by 10.2%. XR/XR DEXA axial skeleton* [id number] IMPRESSION: NORMAL BONE MINERAL DENSITY based upon the WHO classification for females. Sign ificant decrease in bone mineral density within the hips since the prior study.
== END 2022-02-11 12:55 | disposition home or self-care (01) ==
LOC: RAD 12:55
PROVIDERS: PCP Family Medicine Adult Medicine; Visit Provider Family Medicine Adult Medicine
DX: M48.56XA Collapsed vertebra, not elsewhere classified, lumbar region, initial encounter for fracture (principal)
CPT/HCPCS: 77080

== ENCOUNTER → 2022-02-13 14:02 | Outpatient (BNVA) | payer MEDICARE, SELFPAY | PROVIDERS: PCP Family Medicine Adult Medicine; Visit Provider Anesthesiology Pain Medicine | DX: M54.16 Radiculopathy, lumbar region (principal); M48.062 Spinal stenosis, lumbar region with neurogenic claudication | CPT/HCPCS: 64483; 64484; J1100; J3490 ==

== ENCOUNTER → 2022-02-25 08:57 | Outpatient (BNVA) | payer MEDICARE, SELFPAY | PROVIDERS: PCP Family Medicine Adult Medicine; Visit Provider Anesthesiology Pain Medicine | DX: M48.062 Spinal stenosis, lumbar region with neurogenic claudication (principal); M51.16 Intervertebral disc disorders with radiculopathy, lumbar region; M47.816 Spondylosis without myelopathy or radiculopathy, lumbar region; M79.604 Pain in right leg; M79.605 Pain in left leg; G40.909 Epilepsy, unspecified, not intractable, without status epilepticus; R29.898 Other symptoms and signs involving the musculoskeletal system | CPT/HCPCS: 99214 ==

== ENCOUNTER → 2022-03-06 14:26 | Outpatient (BNVA) | payer MEDICARE, SELFPAY | PROVIDERS: PCP Family Medicine Adult Medicine; Visit Provider Anesthesiology Pain Medicine | DX: M47.816 Spondylosis without myelopathy or radiculopathy, lumbar region (principal); M48.062 Spinal stenosis, lumbar region with neurogenic claudication | CPT/HCPCS: 64493; 64494; 64495; J3490 ==

== ENCOUNTER → 2022-03-13 14:28 | Outpatient (BNVA) | payer MEDICARE, SELFPAY | PROVIDERS: PCP Family Medicine Adult Medicine; Visit Provider Family Medicine Adult Medicine | DX: Z23 Encounter for immunization (principal); I10 Essential (primary) hypertension; E11.9 Type 2 diabetes mellitus without complications; I42.8 Other cardiomyopathies; E03.9 Hypothyroidism, unspecified; I67.9 Cerebrovascular disease, unspecified; I25.10 Atherosclerotic heart disease of native coronary artery without angina pectoris; M19.90 Unspecified osteoarthritis, unspecified site; G40.909 Epilepsy, unspecified, not intractable, without status epilepticus; M48.062 Spinal stenosis, lumbar region with neurogenic claudication; K59.09 Other constipation; M51.16 Intervertebral disc disorders with radiculopathy, lumbar region | CPT/HCPCS: 80053; 83036; 84443 ==

== ENCOUNTER → 2022-03-24 08:46 | Outpatient (BNVA) | payer MEDICARE, SELFPAY | PROVIDERS: PCP Family Medicine Adult Medicine; Visit Provider Anesthesiology Pain Medicine | DX: M48.062 Spinal stenosis, lumbar region with neurogenic claudication (principal); M47.816 Spondylosis without myelopathy or radiculopathy, lumbar region; M51.16 Intervertebral disc disorders with radiculopathy, lumbar region; M79.604 Pain in right leg; M79.605 Pain in left leg; G40.909 Epilepsy, unspecified, not intractable, without status epilepticus; R29.898 Other symptoms and signs involving the musculoskeletal system | CPT/HCPCS: 99214 ==

== ENCOUNTER → 2022-04-07 12:41 | Outpatient (BNVA) | payer MEDICARE, SELFPAY | PROVIDERS: PCP Family Medicine Adult Medicine; Visit Provider Anesthesiology Pain Medicine | DX: M47.816 Spondylosis without myelopathy or radiculopathy, lumbar region (principal); M48.062 Spinal stenosis, lumbar region with neurogenic claudication | CPT/HCPCS: 64635; 64636 ==

== ENCOUNTER → 2022-04-28 12:36 | Outpatient (BNVA) | payer MEDICARE, SELFPAY | PROVIDERS: PCP Family Medicine Adult Medicine; Visit Provider Anesthesiology Pain Medicine | DX: M48.062 Spinal stenosis, lumbar region with neurogenic claudication (principal); M47.816 Spondylosis without myelopathy or radiculopathy, lumbar region; M51.16 Intervertebral disc disorders with radiculopathy, lumbar region; G40.909 Epilepsy, unspecified, not intractable, without status epilepticus; R29.898 Other symptoms and signs involving the musculoskeletal system; M79.604 Pain in right leg; M79.605 Pain in left leg | CPT/HCPCS: 99214 ==

== ENCOUNTER → 2022-05-08 14:02 | Outpatient (BNVA) | payer MEDICARE, SELFPAY | PROVIDERS: PCP Family Medicine Adult Medicine; Visit Provider Orthopaedic Surgery | DX: M48.062 Spinal stenosis, lumbar region with neurogenic claudication (principal) | CPT/HCPCS: 99214 ==

== ENCOUNTER → 2022-05-13 13:39 | Outpatient (BNVA) | payer MEDICARE, SELFPAY | PROVIDERS: PCP Family Medicine Adult Medicine; Visit Provider Internal Medicine Cardiovascular Disease | DX: Z01.810 Encounter for preprocedural cardiovascular examination (principal); I25.10 Atherosclerotic heart disease of native coronary artery without angina pectoris; I42.8 Other cardiomyopathies; I10 Essential (primary) hypertension | CPT/HCPCS: 93005; 99214 ==

== ENCOUNTER 2022-06-27 09:05 | Outpatient (CLI) | payer MEDICARE, SELFPAY ==
--- NOTE | 2022-06-27 | ECG_ITS ---
[facility] Test Date: 2022-06-27 Pat Name: Sujata Lomeli Department: Room: Gender: Female Rn Pool: Kenna Riojas : 1940 Requested By: Adalgisa Jacobsen Order Number: [id number] Dany MD: Adalgisa Jacobsen M.D. Interpretive Statements NAME OF STUDY: LEXISCAN SESTAMIBI STRESS TEST INDICATION: Pre Operative Clearance PROCEDURE: At the baseline, the blood pressure was 197/93 mm Hg with a heart rate of 76 bpm. The electrocardiogram showed sinus rhythm, normal axis. ??? The Lexiscan was infused over a period of 20 seconds. A total of 0.4 milligrams of Lexiscan was infused. The stress phase was continued for a total of 5 minutes. Heart rate at the end of the stress phase was 106 bpm with a blood pressure of 154/95 mm Hg. The EKG at the peak infusion revealed 1/2-[address] depression in inferolateral leads not meeting diagnostic criteria for ischemia. ??? Sestamibi was injected 20 seconds after the Lexiscan infusion. ??? Blood pressure at the end of the recovery phase was 100/80 mm Hg with a heart rate of 104 beats per minute. ??? CONCLUSION: 1. No significant EKG changes with the LexiScan infusion. 2. No LexiScan induced chest pain or cardiac arrhythmia. 3. Normal blood pressure and heart rate response. 4. Sestamibi/sestamibi perfusion scan pending; see separate report. Electronically Signed On 07-02-2022 15:34:18 HUMAN RESOURCES OPERATIONS MANAGER by Adalgisa Jacobsen M.D. [id number]
[2022-06-27 09:29] VITALS: BMI 27.6
--- NOTE | 2022-06-27 09:30 | NMCV_ITS ---
NM jessica perf SPECT r/s* [id number] Sujata Lomeli Age: 81 Gender: F : 1940 Exam Date: 06/27/2022 10:15 Ordering Phys: Adalgisa Jacobsen MD ([email or web address]) Technologist: MARLENE Rose Exam Location: [facility] Indications: ATHEROSCLEROTIC HEART DISEASE OF [place] CORONARY ARTERY STRESS TEST Please see separate stress test report in [facility] for full findings IMAGE PROTOCOL Rest/Stress 1 Lexiscan Day Radiopharmaceutical Dose (mCi) Administration Site Administered by Rest: Tc-99m 10.4 IV MARLENE Samaniego Sestamibi Stress:Tc-99m 32.1 IV MARLENE Samaniego Sestamibi Rest: 27-Jun-2022 60 Discovery 630 Stress: 27-Jun-2022 30 Discovery 630 0.4mg Lexiscan. Images obtained in supine and prone position. SPECT RESULTS Technical Quality: Excellent Raw Data Analysis: Normal Image Corrections: No attenuation or motion correction applied Summed Stress Score: 4 Summed Rest Score: 5 Summed Difference Score: 1 PERFUSION FINDINGS Small sized perfusion abnormality of mid inferior and mid inferolateral he on rest images with improved tracer uptake in stress images. This is suggestive of attenuation artifact. FUNCTIONAL RESULTS (calculated via Gated SPECT) Stress Image LV EF (%): 76 Stress EDV (mL):55 TID: 0.76 Stress ESV (mL):13 FUNCTIONAL FINDINGS: The left ventricle is normal in size. Transient Ischemia Dilatation of 0.76. The left ventricular ejection fraction is normal with a value of 76%. There is hyperdynamic left ventricular global systolic function. There is hyperdynamic left ventricular wall thickening. IMPRESSIONS 1. Myocardial perfusion imaging is normal. 2. Overall left ventricular systolic function is normal without regional wall motion abnormalities, LVEF=76%. 3. EKG portion of the study will be reported separately. 4. Scan indicates low risk for cardiac events. Adalgisa Jacobsen MD (Electronically Signed) Final Date: 28 June 2022 19:50 S
[2022-06-27] MEDS: regadenoson 0.4 Mg/5 ml Syringe IVP (10:40)
[2022-06-27 10:55] VITALS: BP 100/80; PULSE 106
== END 2022-06-27 09:06 | disposition home or self-care (01) ==
PROVIDERS: PCP Family Medicine Adult Medicine; Visit Provider Internal Medicine Cardiovascular Disease
DX: Z01.810 Encounter for preprocedural cardiovascular examination (principal); I25.10 Atherosclerotic heart disease of native coronary artery without angina pectoris
CPT/HCPCS: 36415; 78452; 93017; 96374; A9500; J2785

== ENCOUNTER 2022-07-07 15:05 | Inpatient (IN) | payer MEDICARE, SELFPAY ==
[2022-07-03 11:29] VITALS: BMI 27.6
--- NOTE | 2022-07-03 14:10 | ANES.PREANE2 ---
Pre-Anesthetic Assessment Height/Weight: Height 1.57 m Weight 68.492 kg Operation Date: 07/07/22 10:20 Proposed Procedures p Spinal Fusion L3-PLEVIS [id number]/M48.062(Not Applicable) - Jose Cruz Gunn DO s Lumbar Spine Decompression L3-S1(Not Applicable) - Jose Cruz H Velia, DO Familial anesthetic complications: none Was Beta Luis Armando taken within 24 hours: N/A Was Clonidine taken within 24 hours: N/A Social No alcohol and No tobacco Exam alert, oriented x 3, clear to auscultation bilaterally and regular rate & rhythm Airway Submandibular: within normal limits Cervical ROM: within normal limits Mallampati: Class II Dentition: full CV/HEM Anemia, Hypertension and Murmur (mild to mod AI) 1. No significant EKG changes with the LexiScan infusion. 2. No LexiScan induced chest pain or cardiac arrhythmia. 3. Normal blood pressure and heart rate response. 4. Sestamibi/sestamibi perfusion scan pending; see separate report. Electronically Signed On 07-02-2022 15:34:18 VAN OWNER OPERATOR by Adalgisa Jacobsen M.D. CONCLUSIONS ?LV systolic function is normla with EF of 50-55% ?Grade 1 diastolic dysfunction ?Mild mitral regurgitation ?Mild to moderate aortic regurgitation ?Mild pulmonic regurgitation ?Mild tricuspid regurgitation ?Compared to prior echocardiogram from 02/02/2020, LV systolic ?function has improved and EF is 50-55%. Aortic regurgitation has ?progressed and is mild to moderate now ?Adiel Shah MD ?(Electronically Signed) ?Final Date:? ? ? 08 July 2021 GI Gastroesophageal Reflux Disease Metabolic Thyroid Disease [facility] [place] Lower Back Pain and Osteoarthritis/DJD Neuropsych Seizure Anesthetic Plan ASA status: 3 Anesthesia: General Other: Discussed a.line and transfusion with patient. Medications/Allergies Home Medications Medication Instructions Recorded Confirmed Last Taken Type cholecalciferol (vitamin D3) 125 125 mcg PO QAM 01/17/20 07/03/22 07/03/22 History mcg (5,000 unit) capsule lamotrigine 150 mg tablet 150 mg PO BID 05/02/21 07/03/22 07/03/22 History levothyroxine 75 mcg tablet 75 mcg PO QAM #30 tabs 09/20/21 07/03/22 07/03/22 Rx naproxen 500 mg tablet See Rx Instructions .Route 02/22/22 07/03/22 Unknown Rx .COMPLEX #60 tabs amlodipine 10 mg tablet 10 mg PO DAILY high blood pressure 03/13/22 07/03/22 07/03/22 Rx #30 tabs irbesartan 300 1 tab PO DAILY blood pressure #30 03/13/22 07/03/22 07/03/22 Rx mg-hydrochlorothiazide 12.5 mg tabs tablet levetiracetam 750 mg tablet 750 mg PO BID 30 days #60 tabs 03/13/22 07/03/22 07/03/22 Rx tramadol 50 mg tablet 50 mg PO Q6H PRN pain 8 days #30 05/05/22 07/03/22 Unknown Rx tabs vit C 250 mg-vit E 90 mg-zinc 40 1 tab PO BID 07/03/22 07/03/22 07/03/22 History mg-copper 1 [id number] capsule (PreserVision AREDS-2) Allergies Allergy/AdvReac Type Severity Reaction Status Date / Time No Known Allergies Allergy Verified 07/03/22 11:19 [facility] Anesthesia Medical History (Updated 06/14/22 @ 09:07 by César Lockhart MD) Cardiomyopathy Cerebral vascular disease TIA on 03/01/2021 Chronic constipation Coronary artery disease Flu vaccine need Hypertension Hypothyroidism Knee gives out Right knee with several falls Mild acid reflux Osteoarthritis Seizure disorder Syncope Surgical History Hx of foot surgery Hx of tubal ligation S/P cataract surgery Social History Smoking and tobacco status: never smoked Second hand smoke exposure: No Alcohol intake: never History of recent travel: No Data Anesthesia Cardiac Studies: Echocardiogram 07/08/21 Echocardiogram Ultrasound 02/02/20 Sestamibi Stress Test (Cardiology) 06/27/22 Cardiac Event Monitor 08/14/20 Holter Monitor 02/13/20
[2022-07-07] VITALS (13 sets, daily range): BP systolic 92–194; BP diastolic 41–93; PULSE 78–97; RESP 16–17; TEMP 36.1–36.6; O2SAT 93–100; BMI 28.9
--- NOTE | 2022-07-07 09:19 | P.HP_ITS ---
Providers/Chief Complaint Primary Care Provider: César Lockhart MD Chief Complaint: M48.062 History of Present Illness Sujata Lomeli is a 81 year old female back pain. Patient has received a Right L4 and L3 transforaminal DINH, Right L3, L4, L5, diagnostic MBB and Right L3/4, 4/5, 5/S1 RFA by Dr. [facility]. Patient states the injections only last a day. She states she is still experiencing back pain. She reports pain ra diating into her right hip and leg. She explains her pain limits her ADL's.? She is here today to discuss further treatment options. Review of Systems Const: Denies: fever(s), chills, body aches, change in appetite or night sweats Eyes: Denies: change in vision, blurry vision, photophobia or eye discharge ENMT: Denies: throat pain, enlarged tonsils, odynophagia, hoarseness, oral sores, ear or mastoid pain, ear discharge, change in hearing, nasal discharge or nasal congestion Card: Denies: chest pain, palpitations, irregular heart rhythm, swelling of feet/ankles, syncope or dyspnea on exertion Resp: Denies: dyspnea, productive cough, non-productive cough or wheezing GI: Denies: abdominal pain, nausea, vomiting or diarrhea : Denies: flank pain, difficulty voiding or dysuria Musc: Reports: back pain and joint pain; Denies: neck pain, extremity pain or extremity swelling Skin/Breast: Denies: rash, pruritus or skin tenderness Neuro: Reports: headache(s) and seizure-like activity Psych: Denies: suicidal ideation or homicidal ideation Medications/Allergies Home Medications Medication Instructions Recorded Confirmed Last Taken Type lamotrigine 150 mg tablet 150 mg PO BID 05/02/21 07/07/22 07/06/22 History levothyroxine 75 mcg tablet 75 mcg PO QAM #30 tabs 09/20/21 07/07/22 07/06/22 Rx naproxen 500 mg tablet See Rx Instructions .Route 02/22/22 07/07/22 07/06/22 Rx .COMPLEX #60 tabs amlodipine 10 mg tablet 10 mg PO DAILY high blood pressure 03/13/22 07/07/22 07/06/22 Rx #30 tabs irbesartan 300 1 tab PO DAILY blood pressure #30 03/13/22 07/07/22 07/06/22 Rx mg-hydrochlorothiazide 12.5 mg tabs tablet levetiracetam 750 mg tablet 750 mg PO BID 30 days #60 tabs 03/13/22 07/07/22 07/06/22 Rx vit C 250 mg-vit E 90 mg-zinc 40 1 tab PO BID 07/03/22 07/07/22 07/06/22 History mg-copper 1 [id number] capsule (PreserVision AREDS-2) Intraoperative Neuromonitoring #1 ea 07/07/22 Unknown Rx Allergies Allergy/AdvReac Type Severity Reaction Status Date / Time No Known Allergies Allergy Verified 07/07/22 09:08 PFSH Acute PFSH: Medical History (Updated 06/14/22 @ 09:07 by César Lockhart MD) Cardiomyopathy Cerebral vascular disease TIA on 03/01/2021 Chronic constipation Coronary artery disease Flu vaccine need Hypertension Hypothyroidism Knee gives out Right knee with several falls Mild acid reflux Osteoarthritis Seizure disorder Syncope Surgical History Hx of foot surgery Hx of tubal ligation S/P cataract surgery Social History Smoking and tobacco status: never smoked Second hand smoke exposure: No Alcohol intake: never History of recent travel: No Vitals/I&O/Wt Last Vital Signs Temp 97 F L 07/07/22 08:52 Pulse 78 07/07/22 08:52 Resp 16 07/07/22 08:52 BP 194/93 07/07/22 08:52 Pulse Ox 99 07/07/22 08:52 O2 Del Method 07/07/22 08:52 Physical Exam Narrative: CONSTITUTIONAL: This is a normal patient in no acute distress. ?PSYCH: The patient is oriented to person, place and time. ?SKIN: The skin is of normal color and texture. ?NEURO: Patient is neurovascularly intact. A&P Assessment and plan (1) Lumbar stenosis with neurogenic claudication: L3-Pelvis fusion with decompression Attestations Medical Necessity Statement*: failed conservative tx Coding Level of Care Code Acute Code for [facility] Fwd Diagnoses Lumbar stenosis with neurogenic claudication M48.062
[2022-07-07] MEDS: sodium chloride 0.9% 1,000 ML 30 ML IV (09:45)
[2022-07-07 09:59] LABS: Basophils # 0.1 10^3/uL (0.0-0.1); Basophils % 1.8 %; Eosinophils # 0.4 10^3/uL (0.0-0.8); Eosinophils % 6.5 %; Hematocrit 38.9 % (37.0-47.0); Hemoglobin 12.8 g/dL (11.5-15.3); Lymphocytes # 1.6 10^3/uL (0.8-4.8); Mean Corpuscular HGB Conc 32.9 g/dL (30.0-36.0); Mean Corpuscular Hemoglobin 28.2 pg (28.0-34.0); Mean Corpuscular Volume 85.7 fl (81-99); Mean Platelet Volume 11.5 fL (7.4-10.4); Monocytes # 0.6 10^3/uL (0.2-0.9); Monocytes % 10.1 %; Neutrophils # 2.94 10^3/uL (1.8-7.7); Neutrophils % 53.2 %; Nucleated Red Blood Cells % 0 %; Platelet Count 284 10^3/cmm (130-400); Red Blood Count 4.54 10^6/uL (4.1-5.3); Red Cell Distribution Width 12.9 % (12.1-15.1); White Blood Count 5.5 10^3/uL (4.0-10.0)
[2022-07-07] MEDS: ceFAZolin 2,000 MG in sodium chloride 0.9% (plus) 50 ML 100 MG IV ×2 (10:52→17:40)
[2022-07-07 11:02] LABS: INR 0.92 (0.8-1.2)
[2022-07-07 11:03] LABS: Partial Thromboplastin Time 25.4 SECONDS (23.9-36.7)
[2022-07-07 11:15] LABS: Alanine Aminotransferase 8 U/L (0-33); Alkaline Phosphatase 99 U/L (35-105); Aspartate Amino Transferase 15 U/L (0-32); Blood Urea Nitrogen 21 mg/dL (8-23); Calcium 8.8 mg/dL (8.5-10.5); Carbon Dioxide 25 mmol/L (22-29); Chloride 100 mmol/L (98-107); Creatinine Clr Calc Pharmacy 51.7211; Globulin 2.2 g/dL (1.3-4.6); Glucose 99 mg/dL (65-115); Osmolality Calculated 283 mOsm/kg (285-295); Sodium 135 mmol/L (136-145); Total Bilirubin 0.4 mg/dL (0.15-1.2); Total Protein 6.2 g/dL (6.6-8.7)
--- NOTE | 2022-07-07 11:42 | SUR.OPER ---
attempted to contact to notify him of surgical start. no answer.
[2022-07-07] MEDS: vancomycin 1,000 MG SDV 1000 MG XX (11:45)
[2022-07-07] MEDS: heparin, porcine 1,000 unit/mL INJ 10 mL 10000 UNIT IRRIGATION (11:45)
--- NOTE | 2022-07-07 14:23 | XR_ITS ---
WS: [id number] XR lumbar spine 1V port 64264 REASON FOR EXAM: OR PICS FINDINGS: Posterior pedicle screw placements L3-S1. Surgical appliances are in position and alignment. XR/XR lumbar spine 1V port 12507 IMPRESSION: Posterior instrumentation of the lumbar spine as above.
--- NOTE | 2022-07-07 15:10 | P.OP_ITS ---
Operative Report Date of procedure: July 07, 2022 Pre-op diagnosis: Preop Diagnosis Lumbar stenosis with neurogenic claudication, DDD.lumbar spine Post-op diagnosis: same Procedure done: 1. L3- S1 posterior spine fusion 2. L3 - S1 instrumentation 3. L3/4 laminectomy with partial facetectomy 4. L4/5 laminectomy with partial facetectomy 5. L5/S1 laminectomy with partial facetectomy 6. Use of computer navigation /sterotactic for spine 7. bone marrow aspirate from right iliac crest 8. use of autograft 9. use of allograft Surgeon: Jose Cruz Gunn Residential Mental Health Worker: Олег Shultz Residential Mental Health Worker: The certified surgical tech/first assistant, Олег Shultz, PAC was needed for his expertise under the microscope. He was important and necessary throughout the procedure to complete in a safe and timely manner. He assisted with patient positioning prepping and draping tissue retraction suctioning of the operative field protection of the dural sac and tissue closure Estimated blood loss (mL): 200 Procedure: 1. L3- S1 posterior spine fusion 2. L3 - S1 instrumentation 3. L3/4 laminectomy with partial facetectomy 4. L4/5 laminectomy with partial facetectomy 5. L5/S1 laminectomy with partial facetectomy 6. Use of computer navigation /sterotactic for spine 7. bone marrow aspirate from right iliac crest 8. use of autograft 9. use of allograft Patient brought to proceed after undergoing anesthesia was placed in the prone position. All areas impingement well-padded. Patient is prepped draped normal sterile fashion. Skin incision made from L3-S1. Dissection was made down to thoracolumbar fascia. The fascia was then split. Subperiosteal dissection was made out from the lamina of L3 down to S1 and out to the transverse processes of L3 and the sacral ala bilaterally. There is about 2 getting the bone marrow aspirate from the right iliac crest. There is then using the regenerative cell bone marrow aspiration kit. The needle was inserted and 1 cc of bone marrow was taken from each millimeter and total of 20 cc of bone marrow aspirate were taken this was later mixed with the ostomy about bone graft. Next attention was brought to place in the future for computer navigation. The 2 pins were placed in the right cusp. These pins were later removed. The fusion was attached. And then C-arm was brought in and spun around the patient once the information was loaded again. This allowed for the placement of daniel gated pedicle screws. Attention was then brought to placing the pedicle screws. The first all length see computer navigation was placed in S1 on the right side. Then the ball probe was placed and then under computer navigation the screw measurement was made. And a Bella pedicle screw was placed into S1. This process was repeated bilaterally at S1, L5 bilaterally, L4 bilaterally, and L3 bilaterally, again the screws were placed under computer navigation. Next attention was brought to perform laminectomies. Laminectomy was performed at L5-S1 first. The high-speed bur was then used to thin out the lamina of L5 bilaterally. Then a sono PET osteotome was brought in to take out the facets bilaterally. And then Kerrison rongeur and curved curettes were used to remove the lamina as well as the any remaining facet leaflets. This was done bilaterally. The L5 nerve was traced out the L5-S1 foramen felt to be adequately decompressed as well as the S1 nerve root on the S1 pedicle. She was brought to the L4-5 level. Again the high-speed bur was used to take out the lamina of L4. The sono PET osteotome was used to take out the facets bilaterally. Then the Kerrison rongeur was used to take out any remaining lamina and ligamentum flavum. Ligamentum flavum was taken down from L5-S1 as well as L4 and L5. Once the foramen were opened up bilaterally the L5 nerve was traced around the L5 pedicle and the L4 nerve was traced out the L4-5 foramen. Next attention was brought to the L3-4 level. Partial laminectomy of L3 was done using high-speed bur. Medial aspects of the facet joints were taken down using high-speed bur. As the curved curette and Kerrison rongeur was used take down the medial aspect of the facet joints and the remaining lamina. Ligamentum flavum was taken down from L3-L4 level. The L3 nerves were traced out the L3-4 foramen felt to be adequately decompressed and the L4 nerves were traced around the L4 pedicles. Wounds were then irrigated. Attention was then brought to the decortication of the transverse processes of L3-L4-L5 and the sacral ala bilaterally. This was done using high-speed bur. Then the autograft from the laminectomies were taken down packed in the gutters along with the OsteoMed bone graft. Once this was completed then the wound was irrigated. A deep drain was placed vancomycin powder was placed the wounds closed in layered fashion with 0 Vicryl 2-0 Vicryl and Monocryl suture.
--- NOTE | 2022-07-07 16:04 | ANE.PACU2 ---
Inpatient post-anesthesia follow up: Airway intact: Yes Vital signs: Temperature 97.0 F Pulse Rate 86 Respiratory Rate 16 Blood Pressure 112/60 Pulse Oximetry 97 Oxygen Delivery Me thod Room Air Oxygen Flow Rate 6 Fraction of Inspir ed Oxygen Hydration adequate: Yes Nausea and vomiting: No Pain level: 1 Mental status: Baseline
[2022-07-07] MEDS: lactated ringers 1,000 ML 90 ML IV (17:01)
[2022-07-07] MEDS: levETIRAcetam 500 mg Tablet 750 MG PO (17:07)
[2022-07-07] MEDS: HYDROcodone-acetaminophen 5-325 mg Tablet PO ×2 (17:07→21:19)
[2022-07-07] MEDS: docusate sodium 100 mg Capsule PO (17:08)
[2022-07-07] MEDS: lamoTRIgine 100 mg Tablet 150 MG PO (17:08)
[2022-07-07] MEDS: ketorolac 30 mg/mL INJ IVP (23:46)
[2022-07-08] MEDS: lactated ringers 1,000 ML 90 ML IV ×2 (02:36→14:11)
[2022-07-08] MEDS: ceFAZolin 2,000 MG in sodium chloride 0.9% (plus) 50 ML 100 MG IV ×2 (02:37→12:52)
[2022-07-08 04:00] VITALS: BP 117/67; PULSE 75; RESP 16; TEMP 36.7; O2SAT 95
[2022-07-08] MEDS: levothyroxine 75 mcg Tablet PO (05:59)
--- NOTE | 2022-07-08 07:28 | PM.PN ---
Subjective Subjective: POD 1 Patient resting comfortably with family present. Reports mild back pain. Leg pain has improved. Denies shortness of breath, chest pain, headaches. Vitals/I&O/Wt Last Vital Signs Temp 98.1 F 07/08/22 04:00 Pulse 75 07/08/22 04:00 Resp 16 07/08/22 04:00 BP 117/67 07/08/22 04:00 Pulse Ox 95 07/08/22 04:00 O2 Del Method 07/07/22 21:19 O2 Flow Rate 6 07/07/22 15:05 07/07/22 07/08/22 07/08/22 22:59 06:59 14:59 Intake Total 170 / 3220 912.5 / 4132.5 Output Total 70 / 720 300 / 1020 Balance 100 / 2500 612.5 / 3112.5 Weight last 48 hrs Weight 158 lb Physical Exam Narrative: Patient presents alert and oriented x3 with a good general appearance normal mood and affect. Normal coordination normal stability. Mild tenderness around the incisional site with the incision appear to be clean and dry with Hemovac drain intact. No signs of erythema or drainage. No signs of infection. Patient denies any fevers or chills. 5/5 motor strength both lower extremities with negative straight leg raise bilaterally. Calves are supple no medial thigh tenderness. Pulses are 2+ at the dorsalis pedis and posterior tibial region. Good capillary refill throughout normal sensation light touch both lower extremities. Urinary Catheter Management: Alanis: Cath Placed During This Visit: yes Reason for Continuing Indwelling Catheter: Perioperative Use in Selected Surgeries Urinary Catheter Date of Insertion: 07/07/22 Urinary Catheter Time of Insertion: 11:30 Data 07/07/22 09:30 07/07/22 10:35 A&P Assessment and plan (1) Status post lumbar spinal fusion: We will discontinue Alanis catheter. Continue Hemovac drain until tomorrow. Encourage SMI for pulmonary toilet. Physical therapy to evaluate and mobilize. new client banking services clerk to consult for placement. Hopeful discharge tomorrow once facility found. Attestations Medical Necessity Statement*: Hopeful discharge tomorrow pending placement Coding Level of Care Code Acute Code for Chg Fwd Diagnoses Status post lumbar spinal fusion Z98.1
[2022-07-08 08:00] VITALS: BP 127/71; PULSE 80; RESP 17; TEMP 36.6; O2SAT 96
[2022-07-08] MEDS: ketorolac 30 mg/mL INJ IVP (08:09)
[2022-07-08] MEDS: hydroCHLOROthiazide 25 mg Tablet 12.5 MG PO (08:10)
[2022-07-08] MEDS: lamoTRIgine 100 mg Tablet 150 MG PO ×2 (08:11→17:20)
[2022-07-08] MEDS: levETIRAcetam 500 mg Tablet 750 MG PO ×2 (08:11→17:20)
[2022-07-08] MEDS: amlodipine 10 mg Tablet PO (08:12)
[2022-07-08] MEDS: losartan 50 mg Tablet 100 MG PO (08:12)
[2022-07-08] MEDS: docusate sodium 100 mg Capsule PO ×2 (08:12→17:20)
[2022-07-08 11:33] VITALS: BP 106/57; PULSE 87; TEMP 36.9; O2SAT 95
[2022-07-08] MEDS: HYDROcodone-acetaminophen 5-325 mg Tablet PO (14:12)
[2022-07-08 16:00] VITALS: BP 103/59; PULSE 87; TEMP 36.5; O2SAT 95
[2022-07-08 17:20] VITALS: RESP 17; O2SAT 95
[2022-07-08] MEDS: morphine 4 mg/mL SDV 1 mL 2 MG IVP (17:20)
[2022-07-08 20:00] VITALS: BP 103/53; PULSE 95; RESP 17; TEMP 36.8; O2SAT 94
--- NOTE | 2022-07-08 23:12 | PC.NURSE ---
Small amount of drainage noted on bandage covering previous hemavac. Drainage marked.
[2022-07-09] VITALS: BP 107/64; PULSE 89; RESP 17; TEMP 37; O2SAT 94
[2022-07-09] MEDS: lactated ringers 1,000 ML 90 ML IV ×2 (03:11→12:25)
[2022-07-09 04:00] VITALS: BP 110/65; PULSE 103; RESP 17; TEMP 37.1; O2SAT 93
[2022-07-09] MEDS: levothyroxine 75 mcg Tablet PO (05:52)
--- NOTE | 2022-07-09 06:37 | P.PN_ITS ---
Subjective Subjective: POD 2 Reporting moderate back pain. Legs feel better. Denies any shortness of breath, chest pain, headaches. Vitals/I&O/Wt Last Vital Signs Temp 98.7 F 07/09/22 04:00 Pulse 103 H 07/09/22 04:00 Resp 17 07/09/22 04:00 BP 110/65 07/09/22 04:00 Pulse Ox 93 07/09/22 04:00 O2 Del Method 07/09/22 04:00 O2 Flow Rate 6 07/07/22 15:05 07/08/22 07/08/22 07/09/22 14:59 22:59 06:59 Intake Total 1240 / 1240 310 / 1550 1000 / 2550 Balance 1240 / 1240 310 / 1550 1000 / 2550 Weight last 48 hrs Weight 158 lb Physical Exam Narrative: Patient presents alert and oriented x3 with a good general appearance normal mood and affect. Normal coordination normal stability. Mild tenderness around the incisional site with the incision appear to be in dry. no signs of erythema or drainage. No signs of infection. Patient denies any fevers or chills. 5/5 motor strength both lower extremities with negative straight leg raise bilaterally. Calves are supple no medial thigh tenderness. Pulses are 2+ at the dorsalis pedis and posterior tibial region. Good capillary refill throughout normal sensation light touch both lower extremities. Urinary Catheter Management: Alanis: Cath Placed During This Visit: yes Reason for Continuing Indwelling Catheter: Perioperative Use in Selected Surge kimberly Urinary Catheter Date of Insertion: 07/07/22 Urinary Catheter Time of Insertion: 11:30 Data 07/07/22 09:30 07/07/22 10:35 A&P Assessment and plan (1) Status post lumbar spinal fusion: convention services director for placement. Patient will continue to work with physical therapy. Continue incentive spirometry for pulmonary toilet. Laxative choice for BM. Ready for discharge when placement found have patient follow-up in 1 weeks in the office for evaluation of the incisional site. Attestations Medical Necessity Statement*: Ready for discharge following placement Coding Level of Care Code Acute Code for Chg Fwd Diagnoses Status post lumbar spinal fusion Z98.1
[2022-07-09] MEDS: lamoTRIgine 100 mg Tablet 150 MG PO ×2 (08:37→16:59)
[2022-07-09] MEDS: HYDROcodone-acetaminophen 5-325 mg Tablet PO ×2 (08:37→18:17)
[2022-07-09] MEDS: docusate sodium 100 mg Capsule PO ×2 (08:37→16:59)
[2022-07-09] MEDS: levETIRAcetam 500 mg Tablet 750 MG PO ×2 (08:38→16:59)
[2022-07-09 08:47] VITALS: BP 129/67; PULSE 86; RESP 18; TEMP 37.1; O2SAT 97
[2022-07-09 11:35] VITALS: BP 113/70; PULSE 88; RESP 18; TEMP 37; O2SAT 94
[2022-07-09 16:00] VITALS: BP 118/67; PULSE 96; RESP 18; TEMP 36.7; O2SAT 96
--- NOTE | 2022-07-09 18:46 | PC.NURSE ---
Patient has done well today. Up to chair for all meals. Ambulated with walker multiple times. Pain well controlled with oral pain medication. Good PO intake. Good urine output. Surgical dressing C/D/I. Patient currently resting in bed. SCD's in place.
[2022-07-09 20:00] VITALS: BP 128/68; PULSE 107; RESP 19; TEMP 37.1; O2SAT 95
--- NOTE | 2022-07-09 20:44 | PC.NURSE ---
Rounded on patient. Patient resting in bed in supine position on her phone. Nurse informed patient that she would be back to check in on her and do an assessment soon. Patient stated no further needs at this time, and call light was within reach.
--- NOTE | 2022-07-09 21:09 | PC.NURSE ---
Patient A&Ox4, but has forgetfulness. When patient was helped into her underwear, for example, patient then got her shirt on and then asked nurse, Okay, so where are my underwear? Patient resting in bed now with bed alarm and call light on. Patient was educated to call for help if she needed anything or wanted to get up, and patient verbalized understanding. Bilateral lungs were clear upon auscultation. Dressings on medial back are dry and intact. IV intact.
[2022-07-10] VITALS: BP 133/71; PULSE 90; RESP 19; TEMP 36.7; O2SAT 93
[2022-07-10] MEDS: lactated ringers 1,000 ML 90 ML IV (00:20)
[2022-07-10 04:00] VITALS: BP 154/74; PULSE 96; RESP 17; TEMP 36.9; O2SAT 94
[2022-07-10] MEDS: levothyroxine 75 mcg Tablet PO (05:44)
--- NOTE | 2022-07-10 07:28 | PM.PN ---
Subjective Subjective: POD 3 Resting comfortably. Reports mild back pain leg pain has improved. Denies any chest pain, shortness of breath, headaches. Vitals/I&O/Wt Last Vital Signs Temp 98.5 F 07/10/22 04:00 Pulse 96 07/10/22 04:00 Resp 17 07/10/22 04:00 BP 154/74 07/10/22 04:00 Pulse Ox 94 07/10/22 04:00 O2 Del Method 07/09/22 20:00 O2 Flow Rate 6 07/07/22 15:05 07/09/22 07/10/22 07/10/22 22:59 06:59 14:59 Intake Total 240 / 1671 1400 / 3071 Balance 240 / 1671 1400 / 3071 Weight last 48 hrs Weight 169 lb 9.6 oz Physical Exam Narrative: Patient presents alert and oriented x3 with a good general appearance normal mood and affect. Normal coordination normal stability. Mild tenderness around the incisional site with the incision appear to be healing nicely. No signs of erythema or drainage. No signs of infection. Patient denies any fevers or chills. 5/5 motor strength both lower extremities with negative straight leg raise bilaterally. Calves are supple no medial thigh tenderness. Pulses are 2+ at the dorsalis pedis and posterior tibial region. Good capillary refill throughout normal sensation light touch both lower extremities. Urinary Catheter Management: Alanis: Cath Placed During This Visit: yes Reason for Continuing Indwelling Catheter: Perioperative Use in Selected Surgeries Urinary Catheter Date of Insertion: 07/07/22 Urinary Catheter Time of Insertion: 11:30 Data 07/07/22 09:30 07/07/22 10:35 A&P Assessment and plan (1) Status post lumbar spinal fusion: Transfer to retirement facility today. Return to the office in 1 week's time for wound check. Discussed with the nurse dressing change to the lumbar spine with Silverlon dressing. Laxative choice for bowel movement encourage incentive spirometry for pulmonary toilet. Attestations Medical Necessity Statement*: Discharge to retirement facility today. Coding Level of Care Code Acute Code for Chg Fwd Diagnoses Status post lumbar spinal fusion Z98.1
[2022-07-10 08:00] VITALS: BP 151/68; PULSE 99; RESP 15; TEMP 37.1; O2SAT 96
[2022-07-10] MEDS: levETIRAcetam 500 mg Tablet 750 MG PO (08:23)
[2022-07-10 08:24] VITALS: BP 151/68
[2022-07-10] MEDS: lamoTRIgine 100 mg Tablet 150 MG PO (08:24)
[2022-07-10] MEDS: amlodipine 10 mg Tablet PO (08:24)
[2022-07-10] MEDS: hydroCHLOROthiazide 25 mg Tablet 12.5 MG PO (08:24)
[2022-07-10] MEDS: losartan 50 mg Tablet 100 MG PO (08:24)
[2022-07-10] MEDS: docusate sodium 100 mg Capsule PO (08:25)
[2022-07-10] MEDS: NON-FORMULARY MEDICATION (Vit C,E-Zn-Coppr-Lutein-Zeaxan [Preservision Areds-2] 250-90-40- 1 EACH PO (08:27)
[2022-07-10 08:57] LABS: SARS Covid-2 Antigen negative (Negative)
[2022-07-10 12:00] VITALS: BP 130/71; PULSE 93; RESP 18; TEMP 36.9; O2SAT 96
--- NOTE | 2022-07-10 13:08 | PC.SOCIAL ---
IMM Update pg 2 of IMM updated and reviewed w/ patient. Copy provided and Copy dated, initialed and placed in chart.
[2022-07-10] MEDS: HYDROcodone-acetaminophen 5-325 mg Tablet PO (14:05)
== END 2022-07-10 14:14 | disposition skilled nursing facility (03) | DRG 460 ==
LOC: MEDSURG 15:40
PROVIDERS: Anesthesiology; Admitting Provider Orthopaedic Surgery; PCP Family Medicine Adult Medicine; Visit Provider Orthopaedic Surgery
PROC: 0SG107J Fusion of 2 or more Lumbar Vertebral Joints with Autologous Tissue Substitute, Posterior Approach, Anterior Column, Open Approach (ICD-10-PCS; principal; 2022-07-07 10:20)
PROC: 0SG107J Fusion of 2 or more Lumbar Vertebral Joints with Autologous Tissue Substitute, Posterior Approach, Anterior Column, Open Approach (ICD-10-PCS; CPT 63005; 2022-07-07 10:20)
DX: M48.062 Spinal stenosis, lumbar region with neurogenic claudication (principal); I42.9 Cardiomyopathy, unspecified; Z86.73 Personal history of transient ischemic attack (TIA), and cerebral infarction without residual deficits; K59.09 Other constipation; I25.10 Atherosclerotic heart disease of native coronary artery without angina pectoris; I10 Essential (primary) hypertension; E03.9 Hypothyroidism, unspecified
CPT/HCPCS: 36415; 51702; 72020; 76000; 80053; 85025; 85610; 85730; 86850; 86900; 87426; 97110; 97116; 97161; 97530; C1713; J0690; J1100; J1170; J1200; J1644; J1885; J2270; J2370; J2405; J2704; J3010; J3370; J3490; J7030; J7120

== ENCOUNTER → 2022-07-15 15:14 | Outpatient (BNVA) | payer MEDICARE, SELFPAY | PROVIDERS: PCP Family Medicine Adult Medicine; Visit Provider Orthopaedic Surgery | DX: Z47.89 Encounter for other orthopedic aftercare (principal); Z98.1 Arthrodesis status | CPT/HCPCS: 99024 ==

== ENCOUNTER → 2022-07-24 14:59 | Outpatient (BNVA) | payer MEDICARE, SELFPAY | PROVIDERS: PCP Family Medicine Adult Medicine; Visit Provider Orthopaedic Surgery | DX: Z47.89 Encounter for other orthopedic aftercare (principal); Z98.1 Arthrodesis status | CPT/HCPCS: 99024 ==

== ENCOUNTER 2022-08-11 12:53 | Emergency (ER) | payer MEDICARE, SELFPAY ==
[2022-08-11] VITALS (28 sets, daily range): BP systolic 127–154; BP diastolic 63–76; PULSE 73–96; RESP 13–23; TEMP 36.5; O2SAT 92–100
--- NOTE | 2022-08-11 12:56 | ECG_ITS ---
[facility] Test Date: 2022-08-11 Pat Name: Sujata Lomeli Department: Room: Gender: Female Matrix Bath Operator: : 1940 Requested By: Julien Cruz Order Number: [id number] Dany MD: Uziel Sosa M.D. Measurements Intervals Hardy Rate: 75 P: 31 IL: 174 QRS: -3 QRSD: 91 T: 16 QT: 383 QTc: 430 Interpretive Statements SINUS RHYTHM Compared to ECG 05/02/2021 13:57:45 No significant changes Electronically Signed On 08-12-2022 0:17:50 CDT by Uziel Sosa M.D. [email or web address] elyria medical [id number]
--- NOTE | 2022-08-11 12:57 | XRR_ITS ---
PROCEDURE INFORMATION: Exam: XR Chest Exam date and time: 08/11/2022 1:03 PM Age: 81 years old Clinical indication: Cough and dyspnea; Additional info: Dyspnea/cough TECHNIQUE: Imaging protocol: Radiologic exam of the chest. Views: 1 view. COMPARISON: CR XR chest 1V portable [id number] 05/02/2021 2:37 PM FINDINGS: Lungs: Unremarkable. No consolidation. Pleural spaces: Unremarkable. No pleural effusion. No pneumothorax. Heart/Mediastinum: Unremarkable. No cardiomegaly. Bones/joints: Unremarkable. XR/XR chest 1V portable [id number] IMPRESSION: No acute findings.
--- NOTE | 2022-08-11 13:13 | W.ED.SYNCOPE ---
HPI - Syncope General: Chief Complaint: Syncope Stated Complaint: syncopal episodes Time Seen by Provider: 08/11/22 12:56 Source: patient Mode of arrival: EMS History of Present Illness: 81-year-old female presents emergency room with complaints of near syncopal episode. She was not feeling well when she had gone to 6 stand and walk to the door she was going to come and visit her who is in the hospital in the ICU she got lightheaded dizzy ended up sitting back down nearly passed out she had similar problems in the past she also had a history of seizure disorder and she is on Keppra. No chest pain no difficulty speaking or swallowing. She recently had a Lexiscan sestamibi stress test in late June of this year which was normal. MD complaint: felt faint and almost passed out Onset (ago): minute(s) Prodromal symptoms: none Injuries sustained associated with event: none Associated symptoms: Deny abdominal pain, chest pain, fever(s), headache(s), lightheadedness, nausea, short of breath, vertigo or weakness Treatments prior to arrival: none Review of Systems Const: Denies: fever(s), chills, fatigue or malaise ENMT: Denies: throat pain, ear or mastoid pain, nasal discharge or nasal congestion Card: Denies: chest pain or lightheadedness Resp: Denies: dyspnea, productive cough or non-productive cough GI: Denies: abdominal pain or nausea : Denies: flank pain, difficulty voiding, dysuria, urinary frequency or urinary urgency Musc: Denies: neck pain or back pain Skin/Breast: Denies: rash or pruritus Neuro: Denies: headache(s) or vertigo PFSH ED PFSH: Medical History Cardiomyopathy Cerebral vascular disease TIA on 03/01/2021 Chronic constipation Coronary artery disease Flu vaccine need Hypertension Hypothyroidism Knee gives out Right knee with several falls Mild acid reflux Osteoarthritis Seizure disorder Syncope Surgical History Hx of foot surgery Hx of tubal ligation S/P cataract surgery Social History Smoking and tobacco status: never smoked Second hand smoke exposure: No Alcohol intake: never Physical Exam Const: COMMON NORMALS: no acute distress GENERAL APPEARANCE: cooperative and comfortable ORIENTATION/CONSCIOUSNESS: Yes awake, Yes oriented to person, Yes oriented to place and Yes oriented to time HENMT: COMMON NORMALS: normocephalic, atraumatic and hearing grossly normal bilaterally HEAD & SCALP: normocephalic and atraumatic Resp: COMMON NORMALS: normal respiratory effort, No retractions, No use of accessory muscles and clear to auscultation bilaterally AUSCULTATION: clear to auscultation bilaterally Cardio: COMMON NORMALS: regular rate, regular rhythm and No murmurs present (Cardio) RATE: regular rate RHYTHM: regular rhythm GI: COMMON NORMALS: Soft to palpation and No hepatosplenomegaly present AUSCULTATION: Yes normoactive bowel sounds PALPATION: Yes Soft to palpation, No Tenderness to palpation present (GI), No Guarding due to palpation present (GI) and Yes No hepatosplenomegaly present Extremity: COMMON NORMALS: normal to inspection, capillary refill normal, no clubbing, cyanosis or edema, no calf tenderness and no pedal edema Neuro: SENSORIUM/ORIENTATION: Yes oriented to person, Yes oriented to place and Yes oriented to time Skin: COMMON NORMALS: no rashes or lesions noted GENERAL SKIN EXAM: no rashes or lesions noted Course Vital Signs: Vital signs: Vital Signs Temperature 97.7 F 08/11/22 12:55 Pulse Rate 79 08/11/22 15:35 Respiratory Rate 14 08/11/22 15:35 Blood Pressure 132/71 08/11/22 15:35 Pulse Oximetry 96 08/11/22 15:35 Oxygen Delivery Me thod 08/11/22 14:45 MDM - Syncope Medical Decision Making Orthostatic episode. We will decrease her amlodipine to 5 add Toprol-XL 12.5. At the lower dose of both of these she may be less likely to have further orthostatic events. Discussed with her postural changes noted can trigger sudden drops in blood pressures that can result in near syncopal episodes she will follow-up with her regular doctor within the next 2 weeks to reevaluate blood pressure. Medical Records I reviewed the patient's medical records. Lab Data I reviewed the patient's lab results. 08/11/22 13:30 08/11/22 13:30 Radiology Impressions Chest X-Ray 08/11/22 12:57 IMPRESSION: No acute findings. Hip/Pelvis X-Ray 08/11/22 13:19 IMPRESSION: No acute bone abnormality. Orthopedic hardware lumbar spine Laboratory Results WBC 5.7 10^3/uL (4.0-10.0) 08/11/22 13: RBC 3.94 10^6/uL (4.1-5.3) L 08/11/22 13: Hgb 9.7 g/dL (11.5-15.3) L 08/11/22: Hct 31.5 % (37.0-47.0) L 08/11/22 13: MCV 79.9 fl (81-99) L 08/11/22: MCH 24.6 pg (28.0-34.0) L 08/11/22: MCHC 30.8 g/dL (30.0-36.0) 08/11/22: RDW 14.4 % (12.1-15.1) 08/11/22: Plt Count 332 10^3/cmm (130-400) 08/11/22 13: MPV 10.4 fL (7.4-10.4) 08/11/22 13: Neut % (Auto) 72.5 % 08/11/22: Lymph % (Auto) 15.3 % 08/11/22: Amador % (Auto) 6.3 % 08/11/22: Eos % (Auto) 3.7 % 08/11/22: Baso % (Auto) 1.9 % 08/11/22: Neut # (Auto) 4.16 10^3/uL (1.8-7.7) 08/11/22: Lymph # (Auto) 0.9 10^3/uL (0.8-4.8) 08/11/22: Amador # (Auto) 0.4 10^3/uL (0.2-0.9) 08/11/22 13: Eos # (Auto) 0.2 10^3/uL (0.0-0.8) 08/11/22: Baso # (Auto) 0.1 10^3/uL (0.0-0.1) 08/11/22 13:30 Nucleated RBC % (auto) 0 % 08/11/22 13:30 Nucleated RBCs # 0.0 /100WBC 08/11/22 13:30 Sodium 140 mmol/L (136-145) 08/11/22 13:30 Potassium 3.8 mmol/L (3.5-5.1) 08/11/22 13:30 Chloride 99 mmol/L (98-107) 08/11/22 13:30 Carbon Dioxide 26 mmol/L (22-29) 08/11/22 13:30 Anion Gap 18.8 (5-19) 08/11/22 13:30 BUN 20 mg/dL (8-23) 08/11/22 13:30 Creatinine 0.8 mg/dL (0.5-0.9) 08/11/22 13:30 GFR Calculation Not Reportable 08/11/22 13:30 Glucose 116 mg/dL (65-115) H 08/11/22 13:30 Calculated Osmolality 294 mOsm/kg (285-295) 08/11/22 13:30 Calcium 9.7 mg/dL (8.5-10.5) 08/11/22 13:30 Total Bilirubin 0.2 mg/dL (0.15-1.2) 08/11/22 13:30 AST 18 U/L (0-32) 08/11/22 13:30 ALT 7 U/L (0-33) 08/11/22 13:30 Alkaline Phosphatase 140 U/L (35-105) H 08/11/22 13:30 Total Protein 6.9 g/dL (6.6-8.7) 08/11/22 13:30 Albumin 4.5 g/dL (3.5-5.2) 08/11/22 13:30 Globulin 2.4 g/dL (1.3-4.6) 08/11/22 13:30 Discharge Plan Discharge Patient Disposition: Home Clinical Impression: Syncope due to orthostatic hypotension Condition: Stable Prescriptions: New amlodipine 5 mg tablet 5 mg PO DAILY Qty: 30 0RF Toprol XL 25 mg tablet extended release 24 hr 12.5 mg PO DAILY Qty: 30 0RF Discontinued amlodipine 10 mg tablet 10 mg PO DAILY Qty: 30 5RF No Action levetiracetam 750 mg tablet 750 mg PO BID 30 Days Qty: 60 2RF (DME) Traeze Bed Bar See Rx Instructions .Route .MEDSUPPLY Qty: 1 0RF Rx Instructions: As directed naproxen 500 mg tablet See Rx Instructions .ROUTE .COMPLEX Qty: 60 5RF Hold Instructions: Resume on 08/07/22. Dose Instruction: TAKE ONE TABLET BY MOUTH EVERY TWELVE HOURS NEEDED take with food OR MILK Rx Instructions: TAKE ONE TABLET BY MOUTH EVERY TWELVE HOURS NEEDED take with food OR MILK (DME) Bone Growth Stimulator E0748 See Rx Instructions .Route .MEDSUPPLY Qty: 1 0RF Rx Instructions: As directed irbesartan-hydrochlorothiazide 300-12.5 mg tablet 1 tab PO DAILY Qty: 30 5RF levothyroxine 75 mcg tablet 75 mcg PO QAM Qty: 30 5RF lamotrigine 150 mg tablet 150 mg PO BID PreserVision AREDS-2 250-90-40-1 mg Capsule 1 tab PO BID hydrocodone-acetaminophen 5-325 mg tablet 1 - 2 tab PO .Q4-6H Qty: 40 0RF Discharge Orders: Discharge ED (Routine); Ordered 08/11/22 Ordered By: Julien Hyde Referrals: César Lockhart MD [Primary Care Provider] - Discharge Diet: Usual diet Discharge Activity: Increase activity as tolerated Patient Instructions: Opioid Safety, Pain Management Activity Restrictions/Additional Instructions: You were seen today for a episode of nearly passing out. Suspect that this happened because you had just stood and you had a transient drop in your blood pressure. Sometimes this can be exacerbated by medications. Would recommend that you decrease your amlodipine to 5 mg daily and add a low-dose metoprolol 12-1/2 mg daily. Frequently with 2 medicines at lower doses that you can avoid the side effects of the medicines found at max doses. You should follow-up with your primary care doctor to reassess this in the next 2 weeks. Coding Level of Care Code ED Marketing Assistant Manager for Michelle Urias
--- NOTE | 2022-08-11 13:19 | XRR_ITS ---
PROCEDURE INFORMATION: Exam: XR Right Hip Exam date and time: 08/11/2022 1:34 PM Age: 81 years old Clinical indication: Hip pain; Right hip TECHNIQUE: Imaging protocol: Radiologic exam of the right hip. Views: 1 view hip with pelvis when performed. COMPARISON: OT XR lumbar spine 1V port [id number] 07/07/2022 11:37 AM FINDINGS: Bones/joints: Unremarkable. No acute fracture. Orthopedic hardware is seen in the lower lumbar spine Soft tissues: Unremarkable. XR/XR hip RT 2-3V wo/w pel* [id number] IMPRESSION: No acute bone abnormality. Orthopedic hardware lumbar spine
[2022-08-11 13:47] LABS: Basophils # 0.1 10^3/uL (0.0-0.1); Basophils % 1.9 %; Eosinophils # 0.2 10^3/uL (0.0-0.8); Eosinophils % 3.7 %; Hematocrit 31.5 % (37.0-47.0); Hemoglobin 9.7 g/dL (11.5-15.3); Lymphocytes # 0.9 10^3/uL (0.8-4.8); Lymphocytes % 15.3 %; Mean Corpuscular HGB Conc 30.8 g/dL (30.0-36.0); Mean Corpuscular Hemoglobin 24.6 pg (28.0-34.0); Mean Corpuscular Volume 79.9 fl (81-99); Mean Platelet Volume 10.4 fL (7.4-10.4); Monocytes # 0.4 10^3/uL (0.2-0.9); Monocytes % 6.3 %; Neutrophils # 4.16 10^3/uL (1.8-7.7); Neutrophils % 72.5 %; Nucleated Red Blood Cells % 0 %; Platelet Count 332 10^3/cmm (130-400); Red Blood Count 3.94 10^6/uL (4.1-5.3); Red Cell Distribution Width 14.4 % (12.1-15.1); White Blood Count 5.7 10^3/uL (4.0-10.0)
[2022-08-11] MEDS: sodium chloride 0.9% 500 ML IV (13:48)
[2022-08-11 14:05] LABS: Alanine Aminotransferase 7 U/L (0-33); Albumin Level 4.5 g/dL (3.5-5.2); Alkaline Phosphatase 140 U/L (35-105); Anion Gap 18.8 (5-19); Aspartate Amino Transferase 18 U/L (0-32); Blood Urea Nitrogen 20 mg/dL (8-23); Calcium 9.7 mg/dL (8.5-10.5); Carbon Dioxide 26 mmol/L (22-29); Chloride 99 mmol/L (98-107); Globulin 2.4 g/dL (1.3-4.6); Glucose 116 mg/dL (65-115); Osmolality Calculated 294 mOsm/kg (285-295); Potassium 3.8 mmol/L (3.5-5.1); Sodium 140 mmol/L (136-145); Total Bilirubin 0.2 mg/dL (0.15-1.2); Total Protein 6.9 g/dL (6.6-8.7)
== END 2022-08-11 15:57 | disposition home or self-care (01) ==
PROVIDERS: Emergency Provider Family Medicine; PCP Family Medicine Adult Medicine
DX: I95.1 Orthostatic hypotension (principal); I10 Essential (primary) hypertension; E03.9 Hypothyroidism, unspecified; I42.9 Cardiomyopathy, unspecified; I25.10 Atherosclerotic heart disease of native coronary artery without angina pectoris; Z86.73 Personal history of transient ischemic attack (TIA), and cerebral infarction without residual deficits
CPT/HCPCS: 71045; 73502; 80053; 85025; 93005; 96360; 99285; J7040

== ENCOUNTER → 2022-08-21 13:40 | Outpatient (BNVA) | payer MEDICARE, SELFPAY | PROVIDERS: PCP Family Medicine Adult Medicine; Visit Provider Orthopaedic Surgery | DX: Z47.89 Encounter for other orthopedic aftercare (principal); Z98.1 Arthrodesis status | CPT/HCPCS: 72100; 99024 ==

== ENCOUNTER → 2022-09-09 15:35 | Outpatient (BNVA) | payer MEDICARE, SELFPAY | PROVIDERS: PCP Family Medicine Adult Medicine; Visit Provider Family Medicine Adult Medicine | DX: D64.9 Anemia, unspecified (principal) | CPT/HCPCS: 85018 ==

== ENCOUNTER → 2022-10-02 12:54 | Outpatient (BNVA) | payer MEDICARE, SELFPAY | PROVIDERS: PCP Family Medicine Adult Medicine; Visit Provider Orthopaedic Surgery | DX: Z47.89 Encounter for other orthopedic aftercare (principal); Z98.1 Arthrodesis status | CPT/HCPCS: 72100; 99213 ==

== ENCOUNTER → 2022-10-07 14:57 | Outpatient (BNVA) | payer MEDICARE, SELFPAY | PROVIDERS: PCP Family Medicine Adult Medicine; Visit Provider Family Medicine Adult Medicine | DX: D64.9 Anemia, unspecified (principal); F51.05 Insomnia due to other mental disorder; F40.9 Phobic anxiety disorder, unspecified | CPT/HCPCS: 85018 ==

== ENCOUNTER → 2022-11-06 15:23 | Outpatient (BNVA) | payer MEDICARE, SELFPAY | PROVIDERS: PCP Family Medicine Adult Medicine; Visit Provider Family Medicine Adult Medicine | DX: D64.9 Anemia, unspecified (principal) | CPT/HCPCS: 85018 ==

== ENCOUNTER → 2022-11-11 14:07 | Outpatient (BNVA) | payer MEDICARE, SELFPAY | PROVIDERS: PCP Family Medicine Adult Medicine; Visit Provider Internal Medicine Cardiovascular Disease | DX: I42.8 Other cardiomyopathies (principal); I10 Essential (primary) hypertension; I25.10 Atherosclerotic heart disease of native coronary artery without angina pectoris; I67.9 Cerebrovascular disease, unspecified; G40.909 Epilepsy, unspecified, not intractable, without status epilepticus | CPT/HCPCS: 99214 ==

== ENCOUNTER → 2022-11-13 12:56 | Outpatient (BNVA) | payer MEDICARE, SELFPAY | PROVIDERS: PCP Family Medicine Adult Medicine; Visit Provider Orthopaedic Surgery | DX: Z98.1 Arthrodesis status (principal); M54.9 Dorsalgia, unspecified; M51.16 Intervertebral disc disorders with radiculopathy, lumbar region | CPT/HCPCS: 72100; 99214 ==

== ENCOUNTER 2022-11-18 14:58 | Outpatient (CLI) | payer MEDICARE, SELFPAY ==
--- NOTE | 2022-11-18 15:30 | CT_ITS ---
WS: [id number] CT LUMBAR SPINE TECHNIQUE: Noncontrast CT of the lumbar spine with coronal and sagittal reformatted images. CLINICAL INFORMATION: s/p fusion COMPARISON: None. DLP: 551.[address] scans at [facility] use at least one of these dose optimization techniques: automated e xposure control; mA and/or kV adjustment per patient size (includes targeted exams where dose is matc hed to clinical indication); or iterative reconstruction. FINDINGS: Postoperative changes are new since the prior MRI 2021. Pedicle screw fixation L3-S1 with interconnec ting rods. Slight anterolisthesis L4 on L5 is unchanged. Laminectomy defects L3-L5. Immature dorsal l ateral bone graft material. Hardware appears intact. L1-L2: Mild disc bulging. Spinal canal and foramen are patent. Mild facet arthropathy. L2-L3: Slight retrolisthesis. Mild disc bulging with mild central canal stenosis. Narrowing of the LE FT greater than RIGHT subarticular recess. Mild LEFT foraminal narrowing. RIGHT foramen is patent. Mo derate facet arthropathy ligamentum flavum hypertrophy. This appears unchanged since the prior MRI. L3-L4: Mild disc bulging with a shallow central protrusion. Laminectomy defects with postoperative ch anges. Mild LEFT and no significant RIGHT foraminal narrowing. Spinal canal is patent. L4-L5: Grade 1 anterolisthesis. Spinal canal is patent. Postoperative seroma in the laminectomy defec ts. Mild LEFT and no significant RIGHT foraminal narrowing. L5-S1: Mild annular bulging. Spinal canal and foramen are patent. Visualized pelvic bony structures: Normal. Paravertebral soft tissues: Normal. Adrenal glands are normal. CT/CT lumbar spine wo con* [id number] IMPRESSION: 1. Postoperative changes L3-S1 pedicle screw fixation is new since the prior M RI. Associated laminectomy defects with immature dorsolateral bone graft materi al. 2. Mild central canal stenosis L2-L3 appears unchanged. Narrowing of the LEFT greater than RIGHT subarticular recess with mild LEFT foraminal narrowing. 3. Grade 1 anterolisthesis L4 on L5. Postoperative seroma in the laminectomy d efects. Spinal canal is patent. 4. Mild LEFT L3-L4 and LEFT L4-L5 foraminal narrowing. 5. Hardware appears intact.
== END 2022-11-18 14:59 | disposition home or self-care (01) ==
PROVIDERS: PCP Family Medicine Adult Medicine; Visit Provider Orthopaedic Surgery
DX: M51.16 Intervertebral disc disorders with radiculopathy, lumbar region (principal); Z98.1 Arthrodesis status; M48.061 Spinal stenosis, lumbar region without neurogenic claudication
CPT/HCPCS: 72131

== ENCOUNTER → 2022-11-25 14:46 | Outpatient (BNVA) | payer MEDICARE, SELFPAY | PROVIDERS: PCP Family Medicine Adult Medicine; Visit Provider Orthopaedic Surgery | DX: Z09 Encounter for follow-up examination after completed treatment for conditions other than malignant neoplasm (principal); Z98.1 Arthrodesis status | CPT/HCPCS: 99024 ==

== ENCOUNTER 2022-11-28 22:09 | Emergency (ER) | payer MEDICARE, SELFPAY ==
--- NOTE | 2022-11-28 22:10 | XRR_ITS ---
PROCEDURE INFORMATION: Exam: XR Right Hip Exam date and time: 11/28/2022 10:58 PM Age: 81 years old Clinical indication: Injury or trauma; Fall; Blunt trauma (contusions or hematomas); Right; Hip; Additional info: Fall with right hip pain TECHNIQUE: Imaging protocol: Radiologic exam of the right hip. Views: 2 or 3 views hip with pelvis when performed. COMPARISON: CR XR hip RT 2-3V wo/w pel* [id number] 08/11/2022 1:34 PM FINDINGS: Bones/joints: Lumbosacral fusion hardware. The bones are intact. No fracture. Soft tissues: Unremarkable. XR/XR hip RT 2-3V wo/w pel* [id number] IMPRESSION: No acute findings.
[2022-11-28 22:15] VITALS: BP 168/84; PULSE 73; RESP 14; TEMP 36.7; O2SAT 97; BMI 25.7
--- NOTE | 2022-11-29 00:13 | W.ED.EXTPRO ---
HPI - Extremity Problem General: Chief complaint: Extremity Injury, Lower Stated complaint: Fall Rt Hip Pain Time Seen by Provider: 11/28/22 23:56 History of Present Illness: Patient is a 81-year-old female comes to the ED with right hip pain after fall. Patient uses a walker at baseline. Patient said fall occurred at her home today. She was getting out of her bathroom and tripped and fell landing on right hip area. She is still able to ambulate but says her right hip is sore. She rates her pain as mild. Denies any head injury, loss of consciousness. Denies any neurological symptoms such as vision changes, numbness tingling or weakness to 1 side of her body or face. Patient does not take a blood thinner. Associated symptoms: Deny chest pain, fever(s) or rash Review of Systems Const: Denies: fever(s), chills or fatigue Eyes: Denies: change in vision or eye discomfort ENMT: Denies: throat pain, odynophagia, nasal discharge or nasal congestion Card: Denies: chest pain, palpitations, edema, swelling of feet/ankles, dyspnea on exertion or orthopnea Resp: Denies: dyspnea, productive cough or non-productive cough GI: Denies: abdominal pain, nausea, vomiting, diarrhea, constipation or hematochezia : Denies: flank pain, dysuria or hematuria Musc: Reports: extremity pain (Right hip pain); Denies: neck pain, back pain or extremity swelling Skin/Breast: Denies: rash or new lesions Neuro: Denies: headache(s), numbness in extremities or weakness in extremities PFS ED PFSH: Medical History Anemia Cardiomyopathy Cerebral vascular disease TIA on 03/01/2021 Chronic constipation Coronary artery disease Depression Hypertension Hypothyroidism Insomnia due to anxiety and fear Knee gives out Right knee with several falls Mild acid reflux Osteoarthritis Seizure disorder Syncope Surgical History Hx of foot surgery Hx of tubal ligation S/P cataract surgery Social History Smoking and tobacco status: never smoked Second hand smoke exposure: No Alcohol intake: never Substance/Drug Use: never Physical Exam Const: COMMON NORMALS: no acute distress, patient oriented x3 and alert GENERAL APPEARANCE: cooperative and comfortable HENMT: COMMON NORMALS: normocephalic HEAD & SCALP: normocephalic MOUTH: Normal oral and palatal mucosa present THROAT: posterior oropharynx normal and uvula midline Neck/C-Spine: COMMON NORMALS: supple GENERAL: Yes normal visual inspection Resp: COMMON NORMALS: normal respiratory effort, No retractions, No use of accessory muscles and clear to auscultation bilaterally AUSCULTATION: clear to auscultation bilaterally Cardio: COMMON NORMALS: regular rate, regular rhythm, S1 normal heart sound present, S2 normal heart sound present, No gallops present (Cardio), No clicks present (Cardio), No murmurs present (Cardio) and Peripheral pulses 2+ throughout RATE: regular rate RHYTHM: regular rhythm HEART SOUNDS: S1 normal heart sound present and S2 normal heart sound present PERIPHERAL PULSES: Peripheral pulses 2+ throughout GI: COMMON NORMALS: Normal to inspection, nondistended, normoactive bowel sounds present, Soft to palpation, non-tender and no masses PALPATION: Yes Soft to palpation : COMMON NORMALS: Yes no CVA tenderness BLADDER/KIDNEY EXAM: Yes no CVA tenderness Back/Pelvis: COMMON NORMALS: no CVA tenderness Extremity: NARRATIVE EXTREMITY EXAM: Right hip?no right leg shortening or external rotation seen. Tenderness over greater trochanter of right hip. Neurovascular intact distally. Range of motion normal. GENERAL: Yes normal exam except as noted Neuro: COMMON NORMALS: patient oriented x3 SENSORIUM/ORIENTATION: Yes alert GAIT: Yes Normal gait present Skin: GENERAL SKIN EXAM: dry skin Course Vital Signs: Vital signs: Vital Signs Temperature 98.1 F 11/29/22 00:25 Pulse Rate 72 11/29/22 00:25 Respiratory Rate 14 11/28/22 22:15 Blood Pressure 175/82 11/29/22 00:25 Pulse Oximetry 97 11/29/22 00:25 Oxygen Delivery Me thod Room Air 11/28/22 22:15 MDM - Extremity (Nontraumatic) Medical Decision Making Patient is a 81-year-old female comes to the ED with right hip pain after fall. Patient uses a walker at baseline. Patient said fall occurred at her home today. She was getting out of her bathroom and tripped and fell landing on right hip area. She is still able to ambulate but says her right hip is sore. She rates her pain as mild. Denies any head injury, loss of consciousness. Denies any neurological symptoms such as vision changes, numbness tingling or weakness to 1 side of her body or face. Patient does not take a blood thinner. Vitals are stable. Patient appears nontoxic in no acute distress or pain.Right hip?no right leg shortening or external rotation seen. Tenderness over greater trochanter of right hip. Neurovascular intact distally. Range of motion normal. X-ray of right hip showed no acute fractures or findings. Patient was stable for discharge home and diagnosed with right hip pain. She was told to take [id number] ibuprofen or Tylenol to help with pain. Follow-up with PCP within the next week for reevaluation. Return to ED precautions given. Patient understood and agreed with plan. Lab Data Radiology Impressions Hip/Pelvis X-Ray 11/28/22 22:10 IMPRESSION: No acute findings. Discharge Plan Discharge Patient Disposition: Home Clinical Impression: Pain in right hip Condition: Stable Prescriptions: No Action cholecalciferol (vitamin D3) 50 mcg (2,000 unit) capsule 50 mcg PO DAILY mecobalamin (vitamin B12) 1,000 mcg tablet,chewable 1,000 mcg PO DAILY irbesartan-hydrochlorothiazide 300-12.5 mg tablet 1 tab PO DAILY Qty: 100 5RF Toprol XL 25 mg tablet extended release 24 hr 6.25 mg PO DAILY hydroxyzine HCl 10 mg tablet 10 mg PO .q hs PRN (Reason: sleep) Qty: 30 3RF Rx Instructions: Take 1 or 2 at bedtime for sleep. naproxen 500 mg tablet See Rx Instructions .ROUTE .COMPLEX Qty: 60 5RF Hold Instructions: Resume on 08/07/22. Dose Instruction: TAKE ONE TABLET BY MOUTH EVERY TWELVE HOURS NEEDED take with food OR MILK Rx Instructions: TAKE ONE TABLET BY MOUTH EVERY TWELVE HOURS NEEDED take with food OR MILK levothyroxine 75 mcg tablet 75 mcg PO QAM Qty: 30 5RF levetiracetam 750 mg tablet 1,000 mg PO BID Qty: 60 5RF amlodipine 5 mg tablet 5 mg PO DAILY Qty: 100 2RF ferric citrate 210 mg iron tablet 210 mg PO BID Qty: 60 1RF Rx Instructions: administer with a meal citalopram 10 mg tablet See Rx Instructions .ROUTE .COMPLEX Qty: 30 1RF Dose Instruction: TAKE ONE TABLET BY MOUTH DAILY FOR mental health Rx Instructions: TAKE ONE TABLET BY MOUTH DAILY FOR mental health lamotrigine 150 mg tablet 150 mg PO BID PreserVision AREDS-2 250-90-40-1 mg Capsule 1 tab PO BID Discharge Orders: Discharge ED (Routine); Ordered 11/29/22 Ordered By: Khalif Murguia Referrals: César Lockhart MD [Primary Care Provider] - Discharge Diet: Regular Discharge Activity: Increase activity as tolerated Activity Restrictions/Additional Instructions: X-ray of right hip showed no fractures today. Follow-up with medical provider as directed in the next week for reevaluation. Rest and apply cold pack on sore area of hip to help with symptoms. Take [id number] Tylenol or ibuprofen for pain. Return to the ER or your medical provider if condition worsens. Please read and understand discharge instructions. Thank you for choosing [facility] for your healthcare needs today. Please realize this is an emergency room and that we are providing you with a medical screening exam and this may not be complete and all inclusive of all the testing and or work up that you may need to determine your ailment or severity of your illness. It is very important that you follow up as instructed or that you return to the Emergency Department should you have concerns or if your condition changes or worsens in any way. Coding Level of Care Code ED Fabrics And Material Cutter for Michelle Urias
[2022-11-29 00:25] VITALS: BP 175/82; PULSE 72; TEMP 36.7; O2SAT 97
== END 2022-11-29 00:27 | disposition home or self-care (01) ==
PROVIDERS: Emergency Provider Physician Assistant; PCP Family Medicine Adult Medicine
DX: M25.551 Pain in right hip (principal); W01.0XXA Fall on same level from slipping, tripping and stumbling without subsequent striking against object, initial encounter; Y93.89 Activity, other specified; Y92.002 Bathroom of unspecified non-institutional (private) residence as the place of occurrence of the external cause
CPT/HCPCS: 73502; 99283

== ENCOUNTER → 2022-12-09 09:41 | Outpatient (BNVA) | payer MEDICARE, SELFPAY | PROVIDERS: PCP Family Medicine Adult Medicine; Visit Provider Anesthesiology Pain Medicine | DX: M48.062 Spinal stenosis, lumbar region with neurogenic claudication (principal); M47.816 Spondylosis without myelopathy or radiculopathy, lumbar region; M51.16 Intervertebral disc disorders with radiculopathy, lumbar region; G40.909 Epilepsy, unspecified, not intractable, without status epilepticus; R29.898 Other symptoms and signs involving the musculoskeletal system | CPT/HCPCS: 99214 ==

== ENCOUNTER → 2023-01-06 15:51 | Outpatient (BNVA) | payer MEDICARE, SELFPAY | PROVIDERS: PCP Family Medicine Adult Medicine; Visit Provider Orthopaedic Surgery | DX: M53.3 Sacrococcygeal disorders, not elsewhere classified | CPT/HCPCS: 72100; 85018; 99213 ==

== ENCOUNTER → 2023-02-12 10:29 | Outpatient (BNVA) | payer MEDICARE, SELFPAY | PROVIDERS: PCP Family Medicine Adult Medicine; Visit Provider Anesthesiology Pain Medicine | DX: M48.062 Spinal stenosis, lumbar region with neurogenic claudication; R29.898 Other symptoms and signs involving the musculoskeletal system; M47.816 Spondylosis without myelopathy or radiculopathy, lumbar region; M51.16 Intervertebral disc disorders with radiculopathy, lumbar region | CPT/HCPCS: 99214 ==

== ENCOUNTER → 2023-03-04 13:09 | Outpatient (BNVA) | payer MEDICARE, SELFPAY | PROVIDERS: PCP Family Medicine Adult Medicine; Visit Provider Anesthesiology Pain Medicine | DX: M53.3 Sacrococcygeal disorders, not elsewhere classified (principal); M54.9 Dorsalgia, unspecified | CPT/HCPCS: 20610; 27096; 77002; J1030; J3490 ==

== ENCOUNTER 2023-04-16 11:48 | Emergency (ER) | payer MEDICARE, SELFPAY ==
--- NOTE | 2023-04-16 11:49 | ECG_ITS ---
[facility] Test Date: 2023-04-16 Pat Name: Sujata Lomeli Department: Room: Gender: Female Buttoner: : 1940 Requested By: Chris Mast Order Number: [id number] Dany MD: Harinder James M.D. Measurements Intervals [place] Rate: 73 P: 18 [place]: 167 QRS: -17 QRSD: 82 T: -6 QT: 387 QTc: 427 Interpretive Statements SINUS RHYTHM Compared to ECG 08/11/2022 13:19:32 No significant changes Electronically Signed On 04-17-2023 14:11:54 LINING STRAP CLOSER by Harinder James M.D. [email or web address]
[2023-04-16 11:50] VITALS: BP 171/75; PULSE 72; O2SAT 95; BMI 25.6
[2023-04-16 12:00] VITALS: BP 171/75; PULSE 72; O2SAT 95
--- NOTE | 2023-04-16 12:04 | CT_ITS ---
WS: [id number] CT HEAD TECHNIQUE: Noncontrast CT of the head obtained from the skullbase to the vertex. CLINICAL INFORMATION: syncope, headache COMPARISON: None. DLP: 1055.[address] scans at [facility] use at least one of these dose optimization techniques: automated e xposure control; mA and/or kV adjustment per patient size (includes targeted exams where dose is matc hed to clinical indication); or iterative reconstruction. FINDINGS: Small amount of acute subdural blood products along the falx and anterior falx. No significant edema or mass effect. Ventricular system and basal cisterns are patent. Advanced small vessel changes with moderate parenchymal volume loss. No extra-axial fluid collections. No evidence of mass or mass effec t. Tiny chronic lacunar infarct along the RIGHT external capsule. Paranasal sinuses and mastoid air cells are well aerated. Trace mucosal thickening RIGHT mastoid tip. Normal visualized soft tissues. IMPRESSION: 1. Small amount of acute subdural blood products along the falx more prominent along the anterior fa lx. No significant edema or mass effect. 2. Advanced vessel changes with moderate parenchymal volume loss. 3. Intracranial vascular calcification. 4. Tiny chronic lacunar infarct along the RIGHT external capsule. 5. No other acute findings Message LEFT for Chris Mast DO at 04/16/2023 1:03 PM.
--- NOTE | 2023-04-16 12:07 | W.ED.SYNCOPE ---
HPI - Syncope General: Chief Complaint: Syncope Stated Complaint: Syncope Time Seen by Provider: 04/16/23 12:04 History of Present Illness: Patient presents to the ER by EMS with complaints that she slipped out of her recliner fell and hit the floor and hit the right anterior side of her head. Patient denies any other pain at this time Other than her head.. Patient appears to be alert and oriented patient is not currently on any type of blood thinner. Review of Systems General: Reports: 10 or more systems reviewed and unremarkable except in HPI and below PFSH ED PFSH: Medical History Anemia Cardiomyopathy Cerebral vascular disease TIA on 03/01/2021 Chronic constipation Coronary artery disease Depression Falls frequently Hip fracture, right Hypertension Hypothyroidism Insomnia due to anxiety and fear Knee gives out Right knee with several falls Mild acid reflux Osteoarthritis Sacroiliac joint pain Seizure disorder Syncope Surgical History History of back surgery Hx of foot surgery Hx of tubal ligation S/P cataract surgery Status post lumbar spinal fusion Dr. Gunn 07/07/2022 Social History Smoking and tobacco/nicotine status: never used tobacco/nicotine Second hand smoke exposure: No Alcohol intake: never Substance/Drug Use: never Physical Exam Const: COMMON NORMALS: no acute distress, average body habitus, patient oriented x3, no limitations, healthy appearing, alert and well nourished HENMT: COMMON NORMALS: normocephalic, atraumatic, hearing grossly normal bilaterally, external ears normal, Normal external nose present, moist oral mucous membranes and oropharynx normal HEAD & SCALP: normocephalic and atraumatic NOSE: Normal external nose present EXTERNAL EAR: Yes external ears normal Eye: COMMON NORMALS: Equal, round and reactive pupils present, EOMs intact bilaterally, conjunctivae normal and no scleral icterus CONJUNCTIVA: Yes conjunctivae normal PUPIL: Yes Equal, round and reactive pupils present Neck/C-Spine: COMMON NORMALS: full ROM, no lymphadenopathy, supple, no meningeal signs, no JVD and Thyroid normal THYROID: Thyroid normal Chest: COMMONS NORMALS: normal inspection of the chest and normal palpation of entire chest wall Resp: COMMON NORMALS: normal respiratory effort, No retractions, No use of accessory muscles and clear to auscultation bilaterally AUSCULTATION: clear to auscultation bilaterally Cardio: COMMON NORMALS: no JVD, regular rate, regular rhythm, S1 normal heart sound present, S2 normal heart sound present, No gallops present (Cardio), No clicks present (Cardio), No murmurs present (Cardio) and No rub (Cardio) RATE: regular rate RHYTHM: regular rhythm HEART SOUNDS: S1 normal heart sound present and S2 normal heart sound present GI: COMMON NORMALS: Normal to inspection, nondistended, normoactive bowel sounds present, Soft to palpation, non-tender, No hepatosplenomegaly present and no masses PALPATION: Yes Soft to palpation and Yes No hepatosplenomegaly present Extremity: NARRATIVE EXTREMITY EXAM: No edema bilateral lower extremities Neuro: COMMON NORMALS: patient oriented x3 SENSORIUM/ORIENTATION: Yes alert MENINGEAL SIGNS: Yes no meningeal signs Course Vital Signs: Vital signs: Vital Signs Pulse Rate 73 04/16/23 12:57 Blood Pressure 135/86 04/16/23 12:57 Pulse Oximetry 96 04/16/23 12:57 Oxygen Delivery Me thod Room Air 04/16/23 12:57 MDM - Syncope Medical Decision Making patient slipped out of her chair and hit her head. Lab work was performed as well as CT scan that showed acute subdural bleed. Patient be transferred to [facility] excepted at [facility] ER Differential Diagnosis Unlikely syncope due to orthostatic hypotension, vasovagal syncope, complete atrioventricular block, subarachnoid hemorrhage, pulmonary embolism or dehydration Medical Records I reviewed the patient's medical records. Lab Data I reviewed the patient's lab results. 04/16/23 12:17 04/16/23 12:17 Laboratory Results WBC 6.25 10^3/uL (3.29-11.43) 04/16/23 12:17 RBC 4.63 10^6/uL (3.85-5.65) 04/16/23 12:17 Hgb 13.20 g/dL (11.27-16.99) 04/16/23 12:17 Hct 39.2 % (36-47) 04/16/23 12:17 MCV 84.7 fl (85-98) L 04/16/23 12:17 MCH 28.5 pg (27-33) 04/16/23 12:17 MCHC 33.7 g/dL (30-55) 04/16/23 12:17 RDW 12.6 % (12.1-15.1) 04/16/23 12:17 Plt Count 299 10^3/cmm (157-399) 04/16/23 12:17 MPV 9.8 fL (7.4-10.4) 04/16/23 12:17 Neut % (Auto) 74.1 % 04/16/23 12:17 Lymph % (Auto) 11.7 % 04/16/23 12:17 [place] % (Auto) 9.9 % 04/16/23 12:17 Eos % (Auto) 2.6 % 04/16/23 12:17 Baso % (Auto) 1.4 % 04/16/23 12:17 Neut # (Auto) 4.63 10^3/uL (1.8-7.7) 04/16/23 12:17 Lymph # (Auto) 0.7 10^3/uL (0.8-4.8) L 04/16/23 12:17 [place] # (Auto) 0.6 10^3/uL (0.2-0.9) 04/16/23 12:17 Eos # (Auto) 0.2 10^3/uL (0.0-0.8) 04/16/23 12:17 Baso # (Auto) 0.1 10^3/uL (0.0-0.1) 04/16/23 12:17 Nucleated RBC % (auto) 0 % 04/16/23 12:17 Nucleated RBCs # 0.0 /100WBC 04/16/23 12:17 PT 12.00 SECONDS (12.1-14.9) L 04/16/23 12:17 INR 0.86 (0.8-1.2) 04/16/23 12:17 Sodium 133 mmol/L (136-145) L 04/16/23 12:17 Potassium 4.3 mmol/L (3.5-5.1) 04/16/23 12:17 Chloride 94 mmol/L (98-107) L 04/16/23 12:17 Carbon Dioxide 30 mmol/L (22-29) H 04/16/23 12:17 Anion Gap 13.3 (5-19) 04/16/23 12:17 BUN 12 mg/dL (8-23) 04/16/23 12:17 Creatinine 0.7 mg/dL (0.5-0.9) 04/16/23 12:17 GFR Calculation Not Reportable 04/16/23 12:17 Glucose 114 mg/dL (65-115) 04/16/23 12:17 Calculated Osmolality 277 mOsm/kg (285-295) L 04/16/23 12:17 Calcium 9.5 mg/dL (8.5-10.5) 04/16/23 12:17 Total Bilirubin 0.5 mg/dL (0.15-1.2) 04/16/23 12:17 AST 14 U/L (0-32) 04/16/23 12:17 ALT 10 U/L (0-33) 04/16/23 12:17 Alkaline Phosphatase 95 U/L (35-105) 04/16/23 12:17 Total Protein 6.4 g/dL (6.6-8.7) L 04/16/23 12:17 Albumin 3.9 g/dL (3.5-5.2) 04/16/23 12:17 Globulin 2.5 g/dL (1.3-4.6) 04/16/23 12:17 Prolactin 22.50 ng/mL (4.8-23.3) 04/16/23 12:17 All radiology interpretation(s) finalized by discharge EKG Data EKG 1: I personally reviewed and interpreted this EKG as follows: EKG interpretation date: 04/16/23 EKG interpretation time: 11:49 Prior EKG tracings: not available for review Interpretation: EKG showed ventricular rate 73, GA interval 167, QRS duration 82, QTc of 413, sinus rhythm, no ST-T wave changes Discharge Plan Discharge Patient Disposition: Xfer Short-Term Hosp Clinical Impression: Fall Qualifiers: Encounter type: initial encounter Qualified Code(s): W19.XXXA - Unspecified fall, initial encounter Bleeding in brain Qualifiers: Intracerebral hemorrhage etiology: traumatic Encounter type: initial encounter Laterality: unspecified laterality Loss of consciousness presence/duration: with LOC of unspecified duration Qualified Code(s): S06.369A - Traumatic hemorrhage of cerebrum, unspecified, with loss of consciousness of unspecified duration, initial encounter Condition: Stable Referrals: César Lockhart MD [Primary Care Provider] - Coding Level of Care Code ED Senior Corporate Accountant for Michelle Urias
[2023-04-16 12:23] LABS: Basophils # 0.1 10^3/uL (0.0-0.1); Basophils % 1.4 %; Eosinophils # 0.2 10^3/uL (0.0-0.8); Eosinophils % 2.6 %; Hematocrit 39.2 % (36-47); Lymphocytes # 0.7 10^3/uL (0.8-4.8); Lymphocytes % 11.7 %; Mean Corpuscular HGB Conc 33.7 g/dL (30-55); Mean Corpuscular Hemoglobin 28.5 pg (27-33); Mean Corpuscular Volume 84.7 fl (85-98); Mean Platelet Volume 9.8 fL (7.4-10.4); Monocytes # 0.6 10^3/uL (0.2-0.9); Monocytes % 9.9 %; Neutrophils # 4.63 10^3/uL (1.8-7.7); Neutrophils % 74.1 %; Nucleated Red Blood Cells % 0 %; Platelet Count 299 10^3/cmm (157-399); Red Blood Count 4.63 10^6/uL (3.85-5.65); Red Cell Distribution Width 12.6 % (12.1-15.1); White Blood Count 6.25 10^3/uL (3.29-11.43)
[2023-04-16 12:40] LABS: Alanine Aminotransferase 10 U/L (0-33); Albumin Level 3.9 g/dL (3.5-5.2); Alkaline Phosphatase 95 U/L (35-105); Anion Gap 13.3 (5-19); Aspartate Amino Transferase 14 U/L (0-32); Blood Urea Nitrogen 12 mg/dL (8-23); Calcium 9.5 mg/dL (8.5-10.5); Carbon Dioxide 30 mmol/L (22-29); Chloride 94 mmol/L (98-107); Creatinine Clr Calc Pharmacy 49.1063; Globulin 2.5 g/dL (1.3-4.6); Glucose 114 mg/dL (65-115); Osmolality Calculated 277 mOsm/kg (285-295); Potassium 4.3 mmol/L (3.5-5.1); Sodium 133 mmol/L (136-145); Total Bilirubin 0.5 mg/dL (0.15-1.2); Total Protein 6.4 g/dL (6.6-8.7)
[2023-04-16 12:57] VITALS: BP 135/86; PULSE 73; O2SAT 96
[2023-04-16 13:34] LABS: INR 0.86 (0.8-1.2)
[2023-04-16 13:47] VITALS: BP 135/86; PULSE 78; O2SAT 100
== END 2023-04-16 15:06 | disposition short-term general hospital (02) ==
PROVIDERS: Emergency Provider Emergency Medicine; PCP Family Medicine Adult Medicine
DX: S06.369A Traumatic hemorrhage of cerebrum, unspecified, with loss of consciousness of unspecified duration, initial encounter (principal); W07.XXXA Fall from chair, initial encounter; I11.9 Hypertensive heart disease without heart failure; I43 Cardiomyopathy in diseases classified elsewhere; Z86.73 Personal history of transient ischemic attack (TIA), and cerebral infarction without residual deficits; I25.10 Atherosclerotic heart disease of native coronary artery without angina pectoris
CPT/HCPCS: 36415; 70450; 80053; 84146; 85025; 85610; 93005; 99285

== ENCOUNTER 2024-03-07 17:36 | Emergency (ER) | payer MEDICARE, SELFPAY ==
[2024-03-07] VITALS (8 sets, daily range): BP systolic 136–164; BP diastolic 62–91; PULSE 89–107; RESP 17–20; TEMP 36.7; O2SAT 94–99; BMI 31.1
--- NOTE | 2024-03-07 17:41 | W.ED.SEIZURE ---
Documented by User: Julien Hyde DO 03/08/24 07:03 HPI - Seizure General: Chief Complaint: Seizure Stated Complaint: seizure Time Seen by Provider: 03/07/24 17:37 History of Present Illness: HPI Narrative: 83-year-old female presents emergency room complaining of a seizure. Patient has a known history of seizure disorder she is on lamotrigine and levetiracetam. We verified at the [facility] she has not received any of these medications since February 28. Time patient was seen she is awake and alert denies any pain or injury Seizure History: Yes Associated symptoms: Deny chest pain, chills or fever(s) Related Data Home Medications Medication Instructions Recorded Confirmed cholecalciferol (vitamin D3) 50 50 mcg PO DAILY 09/09/22 02/25/24 mcg (2,000 unit) capsule mecobalamin (vitamin B12) 1,000 1,000 mcg PO DAILY 09/09/22 02/25/24 mcg chewable tablet ferric citrate 210 mg iron tablet 210 mg PO BID anemia 07/24/23 02/25/24 levetiracetam 750 mg tablet 750 mg PO Q12H 07/24/23 02/25/24 Previous Rx's Medication Instructions Recorded Wheelchair #1 ea 12/31/22 amlodipine 2.5 mg tablet 2.5 mg PO DAILY hypertension #30 11/10/23 tabs irbesartan 300 1 tab PO DAILY blood pressure #100 12/22/23 mg-hydrochlorothiazide 12.5 mg tabs tablet lamotrigine 200 mg tablet 200 mg PO Q12H #60 tabs 12/28/23 lamotrigine 200 mg tablet 200 mg PO Q12H #60 tabs 03/07/24 (Lamictal) levothyroxine 75 mcg tablet 75 mcg PO QAM #90 tabs 03/07/24 Allergies Allergy/AdvReac Type Severity Reaction Status Date / Time No Known Allergies Allergy Verified 02/25/24 18:17 Review of Systems Const: Denies: fever(s) or chills Card: Denies: chest pain Resp: Denies: dyspnea GI: Denies: abdominal pain : Denies: dysuria, urinary frequency or urinary urgency Musc: Denies: neck pain or back pain Skin/Breast: Denies: rash PFSH ED PFSH: Medical History Grade I diastolic dysfunction Falls frequently Hip fracture, right Sacroiliac joint pain Depression Insomnia due to anxiety and fear Anemia Mild acid reflux Chronic constipation Knee gives out Right knee with several falls Syncope Osteoarthritis Cerebral vascular disease TIA on 03/01/2021 Seizure disorder Hypothyroidism Coronary artery disease Hypertension Cardiomyopathy Surgical History History of back surgery Status post lumbar spinal fusion Dr. Gunn 07/07/2022 Hx of foot surgery Hx of tubal ligation S/P cataract surgery Family History Brother Seizure disorder Social History Smoking and tobacco/nicotine status: never used tobacco/nicotine Second hand smoke exposure: No Alcohol intake: never Substance/Drug Use: never Adopted: No Lives independently: No Housing: Assisted Living Facility Marital status: / Number of children: 3 Current occupational status: retired Current gender identity: Female Physical Exam Const: COMMON NORMALS: no acute distress GENERAL APPEARANCE: cooperative and comfortable ORIENTATION/CONSCIOUSNESS: Yes awake, Yes oriented to person, Yes oriented to place and Yes oriented to time HENMT: COMMON NORMALS: normocephalic, atraumatic and hearing grossly normal bilaterally HEAD & SCALP: normocephalic and atraumatic Resp: COMMON NORMALS: normal respiratory effort, No retractions, No use of accessory muscles and clear to auscultation bilaterally AUSCULTATION: clear to auscultation bilaterally Cardio: COMMON NORMALS: regular rate, regular rhythm and No murmurs present (Cardio) RATE: regular rate RHYTHM: regular rhythm GI: COMMON NORMALS: Soft to palpation and No hepatosplenomegaly present AUSCULTATION: Yes normoactive bowel sounds PALPATION: Yes Soft to palpation, No Tenderness to palpation present (GI), No Guarding due to palpation present (GI) and Yes No hepatosplenomegaly present Extremity: COMMON NORMALS: normal to inspection, capillary refill normal, no clubbing, cyanosis or edema, no calf tenderness and no pedal edema Neuro: SENSORIUM/ORIENTATION: Yes oriented to person, Yes oriented to place and Yes oriented to time Skin: COMMON NORMALS: no rashes or lesions noted GENERAL SKIN EXAM: no rashes or lesions noted Course Vital Signs: Vital signs: Vital Signs Temperature 98.1 F 03/07/24 17:38 Pulse Rate 107 H 03/07/24 21:06 Respiratory Rate 18 03/07/24 21:06 Blood Pressure 136/74 03/07/24 21:06 Pulse Oximetry 99 03/07/24 21:06 Oxygen Delivery Me thod Room Air 03/07/24 19:00 MDM - Seizure MDM Narrative Medical decision making narrative: Patient given loading dose of Keppra and p.o. dose of Lamictal. Care signed out to Dr. Mast at change of shift. See final notes for diagnosis and disposition. Discussed lab work with family, lab testing benign, patient's seizures probably due to her lack of getting her Lamictal. Family says they have been getting her Keppra. We will send a couple Lamictal home with the patient's and a prescription [facility]. Patient be discharged home. Lab Data 03/07/24 18:52 03/07/24 18:52 Labs: Laboratory Results WBC 9.76 10^3/uL (3.29-11.43) 03/07/24 18:52 RBC 5.07 10^6/uL (3.85-5.65) 03/07/24 18:52 Hgb 14.00 g/dL (11.27-16.99) 03/07/24 18:52 Hct 41.6 % (36-47) 03/07/24 18:52 MCV 82.1 fl (85-98) L 03/07/24 18:52 MCH 27.6 pg (27-33) 03/07/24 18:52 MCHC 33.7 g/dL (30-55) 03/07/24 18:52 RDW 13.6 % (12.1-15.1) 03/07/24 18:52 Plt Count 298 10^3/cmm (157-399) 03/07/24 18:52 MPV 10.3 fL (7.4-10.4) 03/07/24 18:52 Neut % (Auto) 82.0 % 03/07/24 18:52 Lymph % (Auto) 8.7 % 03/07/24 18:52 Dickinson % (Auto) 7.3 % 03/07/24 18:52 Eos % (Auto) 0.8 % 03/07/24 18:52 Baso % (Auto) 0.9 % 03/07/24 18:52 Neut # (Auto) 8.00 10^3/uL (1.8-7.7) H 03/07/24 18:52 Lymph # (Auto) 0.9 10^3/uL (0.8-4.8) 03/07/24 18:52 Dickinson # (Auto) 0.7 10^3/uL (0.2-0.9) 03/07/24 18:52 Eos # (Auto) 0.1 10^3/uL (0.0-0.8) 03/07/24 18:52 Baso # (Auto) 0.1 10^3/uL (0.0-0.1) 03/07/24 18:52 Nucleated RBC % (auto) 0 % 03/07/24 18:52 Nucleated RBCs # 0.0 /100WBC 03/07/24 18:52 Sodium 130 mmol/L (136-145) L 03/07/24 18:52 Potassium 4.0 mmol/L (3.5-5.1) 03/07/24 18:52 Chloride 94 mmol/L (98-107) L 03/07/24 18:52 Carbon Dioxide 28 mmol/L (22-29) 03/07/24 18:52 Anion Gap 12.0 (5-19) 03/07/24 18:52 BUN 18 mg/dL (8-23) 03/07/24 18:52 Creatinine 0.8 mg/dL (0.5-0.9) 03/07/24 18:52 GFR Calculation Not Reportable 03/07/24 18:52 Glucose 129 mg/dL (65-115) H 03/07/24 18:52 Calculated Osmolality 274 mOsm/kg (285-295) L 03/07/24 18:52 Calcium 9.4 mg/dL (8.5-10.5) 03/07/24 18:52 Magnesium 2.0 mg/dL (1.7-2.3) 03/07/24 18:52 Total Bilirubin 0.4 mg/dL (0.15-1.2) 03/07/24 18:52 AST 16 U/L (0-32) 03/07/24 18:52 ALT 15 U/L (0-33) 03/07/24 18:52 Alkaline Phosphatase 109 U/L (35-105) H 03/07/24 18:52 Total Protein 7.3 g/dL (6.6-8.7) 03/07/24 18:52 Albumin 4.1 g/dL (3.5-5.2) 03/07/24 18:52 Globulin 3.2 g/dL (1.3-4.6) 03/07/24 18:52 Discharge Plan Discharge Patient Disposition: Home Clinical Impression: Seizure disorder Condition: Stable Prescriptions: New lamotrigine [Lamictal] 200 mg tablet 200 mg PO Q12H Qty: 60 0RF No Action cholecalciferol (vitamin D3) 50 mcg (2,000 unit) capsule 50 mcg PO DAILY mecobalamin (vitamin B12) 1,000 mcg tablet,chewable 1,000 mcg PO DAILY levetiracetam 750 mg tablet 750 mg PO Q12H ferric citrate 210 mg iron tablet 210 mg PO BID Patient Comments: BranAuryxiad Name Rx Instructions: administer with a meal Brand Name Auryxia amlodipine 2.5 mg tablet 2.5 mg PO DAILY Qty: 30 2RF Rx Instructions: decrease dose due to edema (DME) Wheelchair medium See Rx Instructions .Route .MEDSUPPLY Qty: 1 0RF Rx Instructions: As directed irbesartan-hydrochlorothiazide 300-12.5 mg tablet 1 tab PO DAILY Qty: 100 5RF lamotrigine 200 mg tablet 200 mg PO Q12H Qty: 60 2RF levothyroxine 75 mcg tablet 75 mcg PO QAM Qty: 90 1RF Discharge Orders: Discharge ED (Routine); Ordered 03/07/24 Ordered By: Chris Mast Referrals: Mine Bowling, CRYPTOLOGIC TECHNICIAN [facility] [Primary Care Provider] - 1 week Patient Instructions: Seizures Activity Restrictions/Additional Instructions: a prescription for Lamictal was sent to [facility]. Please get the prescription filled and take as directed. Please make sure to your facility will be providing your Lamictal and Keppra as prescribed. Coding Level of Care Code ED Chemistry Department Chair for Chg Fwd Documented by User: Chris Mast DO 03/07/24 20:42 HPI - Seizure General: Chief Complaint: Seizure Stated Complaint: seizure Time Seen by Provider: 03/07/24 17:37 Related Data Home Medications Medication Instructions Recorded Confirmed cholecalciferol (vitamin D3) 50 50 mcg PO DAILY 09/09/22 02/25/24 mcg (2,000 unit) capsule mecobalamin (vitamin B12) 1,000 1,000 mcg PO DAILY 09/09/22 02/25/24 mcg chewable tablet ferric citrate 210 mg iron tablet 210 mg PO BID anemia 07/24/23 02/25/24 levetiracetam 750 mg tablet 750 mg PO Q12H 07/24/23 02/25/24 Previous Rx's Medication Instructions Recorded Wheelchair #1 ea 12/31/22 amlodipine 2.5 mg tablet 2.5 mg PO DAILY hypertension #30 11/10/23 tabs irbesartan 300 1 tab PO DAILY blood pressure #100 12/22/23 mg-hydrochlorothiazide 12.5 mg tabs tablet lamotrigine 200 mg tablet 200 mg PO Q12H #60 tabs 12/28/23 lamotrigine 200 mg tablet 200 mg PO Q12H #60 tabs 03/07/24 (Lamictal) levothyroxine 75 mcg tablet 75 mcg PO QAM #90 tabs 03/07/24 Allergies Allergy/AdvReac Type Severity Reaction Status Date / Time No Known Allergies Allergy Verified 02/25/24 18:17 PFSH ED PFSH: Medical History Grade I diastolic dysfunction Falls frequently Hip fracture, right Sacroiliac joint pain Depression Insomnia due to anxiety and fear Anemia Mild acid reflux Chronic constipation Knee gives out Right knee with several falls Syncope Osteoarthritis Cerebral vascular disease TIA on 03/01/2021 Seizure disorder Hypothyroidism Coronary artery disease Hypertension Cardiomyopathy Surgical History History of back surgery Status post lumbar spinal fusion Dr. Gunn 07/07/2022 Hx of foot surgery Hx of tubal ligation S/P cataract surgery Family History Brother Seizure disorder Social History Smoking and tobacco/nicotine status: never used tobacco/nicotine Second hand smoke exposure: No Alcohol intake: never Substance/Drug Use: never Adopted: No Lives independently: No Housing: Assisted Living Facility Marital status: / Number of children: 3 Current occupational status: retired Current gender identity: Female Course Vital Signs: Vital signs: Vital Signs Temperature 98.1 F 03/07/24 17:38 Pulse Rate 107 H 03/07/24 21:06 Respiratory Rate 18 03/07/24 21:06 Blood Pressure 136/74 03/07/24 21:06 Pulse Oximetry 99 03/07/24 21:06 Oxygen Delivery Me thod Room Air 03/07/24 19:00 MDM - Seizure MDM Narrative Medical decision making narrative: Discussed lab work with family, lab testing benign, patient's seizures probably due to her lack of getting her Lamictal. Family says they have been getting her Keppra. We will send a couple Lamictal home with the patient's and a prescription [facility]. Patient be discharged home. Differential Diagnosis Seizure Differential Diagnosis: Likely epileptic seizure Medical Records Attestation: I reviewed the patient's medical records. Lab Data Attestation: I reviewed the patient's lab results. 03/07/24 18:52 03/07/24 18:52 Labs: Laboratory Results WBC 9.76 10^3/uL (3.29-11.43) 03/07/24 18:52 RBC 5.07 10^6/uL (3.85-5.65) 03/07/24 18:52 Hgb 14.00 g/dL (11.27-16.99) 03/07/24 18:52 Hct 41.6 % (36-47) 03/07/24 18:52 MCV 82.1 fl (85-98) L 03/07/24 18:52 MCH 27.6 pg (27-33) 03/07/24 18:52 MCHC 33.7 g/dL (30-55) 03/07/24 18:52 RDW 13.6 % (12.1-15.1) 03/07/24 18:52 Plt Count 298 10^3/cmm (157-399) 03/07/24 18:52 MPV 10.3 fL (7.4-10.4) 03/07/24 18:52 Neut % (Auto) 82.0 % 03/07/24 18:52 Lymph % (Auto) 8.7 % 03/07/24 18:52 Dickinson % (Auto) 7.3 % 03/07/24 18:52 Eos % (Auto) 0.8 % 03/07/24 18:52 Baso % (Auto) 0.9 % 03/07/24 18:52 Neut # (Auto) 8.00 10^3/uL (1.8-7.7) H 03/07/24 18:52 Lymph # (Auto) 0.9 10^3/uL (0.8-4.8) 03/07/24 18:52 Dickinson # (Auto) 0.7 10^3/uL (0.2-0.9) 03/07/24 18:52 Eos # (Auto) 0.1 10^3/uL (0.0-0.8) 03/07/24 18:52 Baso # (Auto) 0.1 10^3/uL (0.0-0.1) 03/07/24 18:52 Nucleated RBC % (auto) 0 % 03/07/24 18:52 Nucleated RBCs # 0.0 /100WBC 03/07/24 18:52 Sodium 130 mmol/L (136-145) L 03/07/24 18:52 Potassium 4.0 mmol/L (3.5-5.1) 03/07/24 18:52 Chloride 94 mmol/L (98-107) L 03/07/24 18:52 Carbon Dioxide 28 mmol/L (22-29) 03/07/24 18:52 Anion Gap 12.0 (5-19) 03/07/24 18:52 BUN 18 mg/dL (8-23) 03/07/24 18:52 Creatinine 0.8 mg/dL (0.5-0.9) 03/07/24 18:52 GFR Calculation Not Reportable 03/07/24 18:52 Glucose 129 mg/dL (65-115) H 03/07/24 18:52 Calculated Osmolality 274 mOsm/kg (285-295) L 03/07/24 18:52 Calcium 9.4 mg/dL (8.5-10.5) 03/07/24 18:52 Magnesium 2.0 mg/dL (1.7-2.3) 03/07/24 18:52 Total Bilirubin 0.4 mg/dL (0.15-1.2) 03/07/24 18:52 AST 16 U/L (0-32) 03/07/24 18:52 ALT 15 U/L (0-33) 03/07/24 18:52 Alkaline Phosphatase 109 U/L (35-105) H 03/07/24 18:52 Total Protein 7.3 g/dL (6.6-8.7) 03/07/24 18:52 Albumin 4.1 g/dL (3.5-5.2) 03/07/24 18:52 Globulin 3.2 g/dL (1.3-4.6) 03/07/24 18:52 No radiology studies performed this visit Discharge Plan Discharge Patient Disposition: Home Clinical Impression: Seizure disorder Condition: Stable Prescriptions: New lamotrigine [Lamictal] 200 mg tablet 200 mg PO Q12H Qty: 60 0RF No Action cholecalciferol (vitamin D3) 50 mcg (2,000 unit) capsule 50 mcg PO DAILY mecobalamin (vitamin B12) 1,000 mcg tablet,chewable 1,000 mcg PO DAILY levetiracetam 750 mg tablet 750 mg PO Q12H ferric citrate 210 mg iron tablet 210 mg PO BID Patient Comments: BranAuryxiad Name Rx Instructions: administer with a meal Brand Name Auryxia amlodipine 2.5 mg tablet 2.5 mg PO DAILY Qty: 30 2RF Rx Instructions: decrease dose due to edema (DME) Wheelchair medium See Rx Instructions .Route .MEDSUPPLY Qty: 1 0RF Rx Instructions: As directed irbesartan-hydrochlorothiazide 300-12.5 mg tablet 1 tab PO DAILY Qty: 100 5RF lamotrigine 200 mg tablet 200 mg PO Q12H Qty: 60 2RF levothyroxine 75 mcg tablet 75 mcg PO QAM Qty: 90 1RF Discharge Orders: Discharge ED (Routine); Ordered 03/07/24 Ordered By: Chris Mast Referrals: Mine Bowling, CRYPTOLOGIC TECHNICIAN [employer]N[employer] [Primary Care Provider] - 1 week Patient Instructions: Seizures Activity Restrictions/Additional Instructions: [facility] Please get the prescription filled and take as directed. Please make sure to your facility will be providing your Lamictal and Keppra as prescribed. Coding Level of Care Code ED Chemistry Department Chair for Michelle Urias
[2024-03-07] MEDS: lamoTRIgine 100 mg Tablet 200 MG PO (18:01)
[2024-03-07] MEDS: levETIRAcetam 1,000 MG/100 ML PREMIX 400 MG IV (18:03)
[2024-03-07 19:02] LABS: Basophils # 0.1 10^3/uL (0.0-0.1); Basophils % 0.9 %; Eosinophils # 0.1 10^3/uL (0.0-0.8); Eosinophils % 0.8 %; Hematocrit 41.6 % (36-47); Lymphocytes # 0.9 10^3/uL (0.8-4.8); Lymphocytes % 8.7 %; Mean Corpuscular HGB Conc 33.7 g/dL (30-55); Mean Corpuscular Hemoglobin 27.6 pg (27-33); Mean Corpuscular Volume 82.1 fl (85-98); Mean Platelet Volume 10.3 fL (7.4-10.4); Monocytes # 0.7 10^3/uL (0.2-0.9); Monocytes % 7.3 %; Nucleated Red Blood Cells % 0 %; Platelet Count 298 10^3/cmm (157-399); Red Blood Count 5.07 10^6/uL (3.85-5.65); Red Cell Distribution Width 13.6 % (12.1-15.1); White Blood Count 9.76 10^3/uL (3.29-11.43)
[2024-03-07 19:19] LABS: Albumin Level 4.1 g/dL (3.5-5.2); Alkaline Phosphatase 109 U/L (35-105); Aspartate Amino Transferase 16 U/L (0-32); Blood Urea Nitrogen 18 mg/dL (8-23); Calcium 9.4 mg/dL (8.5-10.5); Carbon Dioxide 28 mmol/L (22-29); Chloride 94 mmol/L (98-107); Globulin 3.2 g/dL (1.3-4.6); Glucose 129 mg/dL (65-115); Osmolality Calculated 274 mOsm/kg (285-295); Sodium 130 mmol/L (136-145); Total Bilirubin 0.4 mg/dL (0.15-1.2); Total Protein 7.3 g/dL (6.6-8.7)
[2024-03-07 19:29] LABS: Alanine Aminotransferase 15 U/L (0-33)
[2024-03-07] MEDS: lamoTRIgine 100 mg Tablet PO (20:54)
== END 2024-03-07 21:08 | disposition home or self-care (01) ==
PROVIDERS: Emergency Provider Family Medicine; PCP Nurse Practitioner
DX: G40.909 Epilepsy, unspecified, not intractable, without status epilepticus (principal); Z86.73 Personal history of transient ischemic attack (TIA), and cerebral infarction without residual deficits; I25.10 Atherosclerotic heart disease of native coronary artery without angina pectoris; I11.9 Hypertensive heart disease without heart failure; I43 Cardiomyopathy in diseases classified elsewhere
CPT/HCPCS: 36415; 80053; 83735; 85025; 87400; 96365; 96366; 99284; J1953

== ENCOUNTER 2024-03-12 04:14 | Emergency (ER) | payer MEDICARE, SELFPAY ==
--- NOTE | 2024-03-12 04:18 | CTR_ITS ---
PROCEDURE INFORMATION: Exam: CT Head Without Contrast Exam date and time: 03/12/2024 4:30 AM Age: 83 years old Clinical indication: Injury or trauma; Blunt trauma (contusions or hematomas); Patient HX: EMS arrival from long-term for fall. C/O head pain with hematoma to RT frontal. ; Additional info: Fall head trauma TECHNIQUE: Imaging protocol: Computed tomography of the head without contrast. Radiation optimization: All CT scans at this facility use at least one of these dose optimization techniques: automated exposure control; mA and/or kV adjustment per patient size (includes targeted exams where dose is matched to clinical indication); or iterative reconstruction. COMPARISON: CT head wo con* [id number] 04/16/2023 12:44 PM RADIATION DOSE METRICS: Total DLP (mGy-cm): 996.75 FINDINGS: Brain: . No hemorrhage. Severe periventricular white matter lucency representing atherosclerotic encephalopathic changes. No mass effect. Cerebral ventricles: No ventriculomegaly. Ventricular prominence proportionate to the degree of atrophy observed. Paranasal sinuses: Visualized sinuses are unremarkable. No fluid levels. Mastoid air cells: Visualized mastoid air cells are well aerated. Bones: Unremarkable. No acute fracture. Soft tissues: Right frontal scalp hematoma. CT/CT head wo con* [id number] IMPRESSION: No acute intracranial abnormality.
--- NOTE | 2024-03-12 04:18 | ED_ITS ---
Documented by User: Chris Mast DO 03/12/24 04:20 HPI - Fall General: Chief Complaint: Fall Stated Complaint: FALL Time Seen by Provider: 03/12/24 04:18 History of Present Illness: Patient brought in by ambulance due to mechanical fall and heart board and hitting her head on floor. Patient did not lose consciousness. Patient is not on blood thinners. Patient is on Keppra for seizures but says she did not have a seizure. Patient only complaint currently is a headache. Related Data Home Medications Medication Instructions Recorded Confirmed cholecalciferol (vitamin D3) 50 50 mcg PO DAILY 09/09/22 03/11/24 mcg (2,000 unit) capsule mecobalamin (vitamin B12) 1,000 1,000 mcg PO DAILY 09/09/22 03/11/24 mcg chewable tablet Previous Rx's Medication Instructions Recorded Wheelchair #1 ea 12/31/22 amlodipine 2.5 mg tablet 2.5 mg PO DAILY hypertension #90 03/11/24 tabs irbesartan 300 1 tab PO DAILY blood pressure #90 03/11/24 mg-hydrochlorothiazide 12.5 mg tabs tablet lamotrigine 200 mg tablet 200 mg PO Q12H #180 tabs 03/11/24 (Lamictal) levetiracetam 750 mg tablet 750 mg PO Q12H #180 tabs 03/11/24 levothyroxine 75 mcg tablet 75 mcg PO QAM #90 tabs 03/11/24 Allergies Allergy/AdvReac Type Severity Reaction Status Date / Time No Known Allergies Allergy Verified 03/11/24 09:37 Review of Systems General: Reports: 10 or more systems reviewed and unremarkable except in HPI and below PFSH ED PFSH: Medical History Grade I diastolic dysfunction Falls frequently Hip fracture, right Sacroiliac joint pain Depression Insomnia due to anxiety and fear Anemia Mild acid reflux Chronic constipation Knee gives out Right knee with several falls Syncope Osteoarthritis Cerebral vascular disease TIA on 03/01/2021 Seizure disorder Hypothyroidism Coronary artery disease Hypertension Cardiomyopathy Surgical History History of back surgery Status post lumbar spinal fusion Dr. Gunn 07/07/2022 Hx of foot surgery Hx of tubal ligation S/P cataract surgery Family History Brother Seizure disorder Social History Smoking and tobacco/nicotine status: never used tobacco/nicotine Second hand smoke exposure: No Alcohol intake: never Substance/Drug Use: never Adopted: No Lives independently: No Housing: Assisted Living Facility Marital status: / Number of children: 3 Current occupational status: retired Current gender identity: Female Physical Exam Const: COMMON NORMALS: no acute distress, average body habitus, patient oriented x3, no limitations, healthy appearing, alert and well nourished HENMT: COMMON NORMALS: normocephalic, hearing grossly normal bilaterally, external ears normal, Normal external nose present and moist oral mucous membranes; head/scalp not atraumatic (Large hematoma right superior orbital region) HEAD & SCALP: normocephalic; not atraumatic (Large hematoma right superior orbital region) NOSE: Normal external nose present EXTERNAL EAR: Yes external ears normal Eye: COMMON NORMALS: Equal, round and reactive pupils present, EOMs intact bilaterally, conjunctivae normal and no scleral icterus CONJUNCTIVA: Yes co njunctivae normal PUPIL: Yes Equal, round and reactive pupils present Neck/C-Spine: COMMON NORMALS: full ROM, no lymphadenopathy, supple, no meningeal signs, no JVD and Thyroid normal THYROID: Thyroid normal Chest: COMMONS NORMALS: normal inspection of the chest and normal palpation of entire chest wall Resp: COMMON NORMALS: normal respiratory effort, No retractions, No use of accessory muscles and clear to auscultation bilaterally AUSCULTATION: clear to auscultation bilaterally Cardio: COMMON NORMALS: no JVD, regular rate, regular rhythm, S1 normal heart sound present, S2 normal heart sound present, No gallops present (Cardio), No clicks present (Cardio), No murmurs present (Cardio) and No rub (Cardio) RATE: regular rate RHYTHM: regular rhythm HEART SOUNDS: S1 normal heart sound present and S2 normal heart sound present GI: COMMON NORMALS: Normal to inspection, nondistended, normoactive bowel sounds present, Soft to palpation, non-tender, No hepatosplenomegaly present and no masses PALPATION: Yes Soft to palpation and Yes No hepatosplenomegaly present Neuro: COMMON NORMALS: patient oriented x3 SENSORIUM/ORIENTATION: Yes alert MENINGEAL SIGNS: Yes no meningeal signs Course Vital Signs: Vital signs: Vital Signs Temperature 98.2 F 03/12/24 04:21 Pulse Rate 105 H 03/12/24 06:37 Respiratory Rate 20 H 03/12/24 04:21 Blood Pressure 182/100 03/12/24 04:21 Pulse Oximetry 95 03/12/24 06:37 MDM - Fall Medical Records I reviewed the patient's medical records. Lab Data I reviewed the patient's lab results. Radiology Impressions Head CT 03/12/24 04:18 IMPRESSION: No acute intracranial abnormality. Lumbar Spine CT 03/12/24 04:20 IMPRESSION: Postoperative changes are stable. No acute abnormality. All radiology interpretation(s) finalized by discharge Discharge Plan Discharge Patient Disposition: Home Clinical Impression: Fall, Back pain Condition: Stable Prescriptions: No Action cholecalciferol (vitamin D3) 50 mcg (2,000 unit) capsule 50 mcg PO DAILY mecobalamin (vitamin B12) 1,000 mcg tablet,chewable 1,000 mcg PO DAILY lamotrigine [Lamictal] 200 mg tablet 200 mg PO Q12H Qty: 180 1RF levothyroxine 75 mcg tablet 75 mcg PO QAM Qty: 90 1RF amlodipine 2.5 mg tablet 2.5 mg PO DAILY Qty: 90 1RF Rx Instructions: decrease dose due to edema irbesartan-hydrochlorothiazide 300-12.5 mg tablet 1 tab PO DAILY Qty: 90 1RF levetiracetam 750 mg tablet 750 mg PO Q12H Qty: 180 1RF (DME) Wheelchair medium See Rx Instructions .Route .MEDSUPPLY Qty: 1 0RF Rx Instructions: As directed Discharge Orders: Discharge ED (Routine); Ordered 03/12/24 Ordered By: Julien Hyde Referrals: Mine Bowling, TECHNICAL TRAINING COORDINATOR-C [Primary Care Provider] - Discharge Diet: Usual diet Discharge Activity: Increase activity as tolerated Patient Instructions: Opioid Safety, Pain Management Activity Restrictions/Additional Instructions: Thank you for choosing [facility] for your healthcare needs today. It is very important that you follow up as instructed or that you return to the Emergency Department should you have concerns or if your condition changes or worsens in any way. You were seen today after a fall. CTs did not show any acute fractures. Will discharge you back home to the assisted continue to use your current medication regimen Sign Out Sign Out Data: Patient Sign Out occurred on 03/12/24 at 06:41. Patient's care was discussed, and care was transferred from Chris Mast DO to Julien Hyde DO. Coding Level of Care Code ED Records Management Coordinator for [facility] F[facility] Documented by User: Julien Hyde DO 03/12/24 08:42 HPI - Fall General: Chief Complaint: Fall Stated Complaint: FALL Time Seen by Provider: 03/12/24 04:18 Related Data Home Medications Medication Instructions Recorded Confirmed cholecalciferol (vitamin D3) 50 50 mcg PO DAILY 09/09/22 03/11/24 mcg (2,000 unit) capsule mecobalamin (vitamin B12) 1,000 1,000 mcg PO DAILY 09/09/22 03/11/24 mcg chewable tablet Previous Rx's Medication Instructions Recorded Wheelchair #1 ea 12/31/22 amlodipine 2.5 mg tablet 2.5 mg PO DAILY hypertension #90 03/11/24 tabs irbesartan 300 1 tab PO DAILY blood pressure #90 03/11/24 mg-hydrochlorothiazide 12.5 mg tabs tablet lamotrigine 200 mg tablet 200 mg PO Q12H #180 tabs 03/11/24 (Lamictal) levetiracetam 750 mg tablet 750 mg PO Q12H #180 tabs 03/11/24 levothyroxine 75 mcg tablet 75 mcg PO QAM #90 tabs 03/11/24 Allergies Allergy/AdvReac Type Severity Reaction Status Date / Time No Known Allergies Allergy Verified 03/11/24 09:37 PFS ED PFSH: Medical History Grade I diastolic dysfunction Falls frequently Hip fracture, right Sacroiliac joint pain Depression Insomnia due to anxiety and fear Anemia Mild acid reflux Chronic constipation Knee gives out Right knee with several falls Syncope Osteoarthritis Cerebral vascular disease TIA on 03/01/2021 Seizure disorder Hypothyroidism Coronary artery disease Hypertension Cardiomyopathy Surgical History History of back surgery Status post lumbar spinal fusion Dr. Gunn 07/07/2022 Hx of foot surgery Hx of tubal ligation S/P cataract surgery Family History Brother Seizure disorder Social History Smoking and tobacco/nicotine status: never used tobacco/nicotine Second hand smoke exposure: No Alcohol intake: never Substance/Drug Use: never Adopted: No Lives independently: No Housing: Assisted Living Facility Marital status: / Number of children: 3 Current occupational status: retired Current gender identity: Female Course Vital Signs: Vital signs: Vital Signs Temperature 98.2 F 03/12/24 04:21 Pulse Rate 105 H 03/12/24 06:37 Respiratory Rate 20 H 03/12/24 04:21 Blood Pressure 182/100 03/12/24 04:21 Pulse Oximetry 95 03/12/24 06:37 MDM - Fall Medical Decision Making Care assumed at change of shift no acute fractures noted on imaging discharge patient to assisted via ambulance. Lab Data Radiology Impressions Head CT 03/12/24 04:18 IMPRESSION: No acute intracranial abnormality. Lumbar Spine CT 03/12/24 04:20 IMPRESSION: Postoperative changes are stable. No acute abnormality. Discharge Plan Discharge Patient Disposition: Home Clinical Impression: Fall, Back pain Condition: Stable Prescriptions: No Action cholecalciferol (vitamin D3) 50 mcg (2,000 unit) capsule 50 mcg PO DAILY mecobalamin (vitamin B12) 1,000 mcg tablet,chewable 1,000 mcg PO DAILY lamotrigine [Lamictal] 200 mg tablet 200 mg PO Q12H Qty: 180 1RF levothyroxine 75 mcg tablet 75 mcg PO QAM Qty: 90 1RF amlodipine 2.5 mg tablet 2.5 mg PO DAILY Qty: 90 1RF Rx Instructions: decrease dose due to edema irbesartan-hydrochlorothiazide 300-12.5 mg tablet 1 tab PO DAILY Qty: 90 1RF levetiracetam 750 mg tablet 750 mg PO Q12H Qty: 180 1RF (DME) Wheelchair medium See Rx Instructions .Route .MEDSUPPLY Qty: 1 0RF Rx Instructions: As directed Discharge Orders: Discharge ED (Routine); Ordered 03/12/24 Ordered By: Julien Hyde Referrals: Mine Bowling, [facility] [Primary Care Provider] - Discharge Diet: Usual diet Discharge Activity: Increase activity as tolerated Patient Instructions: Opioid Safety, Pain Management Activity Restrictions/Additional Instructions: Thank you for choosing [facility] for your healthcare needs today. It is very important that you follow up as instructed or that you return to the Emergency Department should you have concerns or if your condition changes or worsens in any way. You were seen today after a fall. CTs did not show any acute fractures. Will discharge you back home to the assisted continue to use your current medication regimen Sign Out Sign Out Data: Patient Sign Out occurred on 03/12/24 at 06:41. Patient's care was discussed, and care was transferred from Chris Mast DO to Julien Hyde DO. Coding Level of Care Code ED Records Management Coordinator for Michelle Urias
--- NOTE | 2024-03-12 04:20 | CTR_ITS ---
PROCEDURE INFORMATION: Exam: CT Lumbar Spine Without Contrast Exam date and time: 03/12/2024 4:33 AM Age: 83 years old Clinical indication: Injury or trauma; Blunt trauma (contusions or hematomas); Prior surgery; Surgery date: 6+ months; Surgery type: Lumbar fusion; Patient HX: EMS arrival from halfway for fall. C/O low back pain. ; Additional info: Fall lbp TECHNIQUE: Imaging protocol: Computed tomography of the lumbar spine without contrast. Radiation optimization: All CT scans at this facility use at least one of these dose optimization techniques: automated exposure control; mA and/or kV adjustment per patient size (includes targeted exams where dose is matched to clinical indication); or iterative reconstruction. COMPARISON: CT lumbar spine wo con* [id number] 11/18/2022 3:24 PM RADIATION DOSE METRICS: Total DLP (mGy-cm): 1093.47 FINDINGS: Bones/joints: Prior posterior fusion L3 through S1. Intact hardware. Anatomic alignment. Lateral bone fusion fragments. L4 and L5 laminectomy. Degenerative disc disease predominantly at T12-L1. Minimal anterolisthesis of L4 on L5 unchanged. No evidence of fracture, lytic, or sclerotic bone lesion. Stable postoperative seroma at the laminectomy site. Soft tissues: Unremarkable. Other findings: Diffuse demineralization. CT/CT lumbar spine wo con* [id number] IMPRESSION: Postoperative changes are stable. No acute abnormality.
[2024-03-12 04:21] VITALS: BP 182/100; PULSE 100; RESP 20; TEMP 36.8; O2SAT 96; BMI 30.8
--- NOTE | 2024-03-12 05:00 | PC.NURSE ---
Rounded on pt. Pt repositioned in bed. Pt denies further needs at this time.
[2024-03-12 06:07] VITALS: PULSE 110; O2SAT 98
[2024-03-12 06:37] VITALS: PULSE 105; O2SAT 95
[2024-03-12 08:56] VITALS: BP 106/73; PULSE 105; O2SAT 95
== END 2024-03-12 08:59 | disposition home or self-care (01) ==
PROVIDERS: Emergency Provider Family Medicine; PCP Nurse Practitioner
DX: S00.03XA Contusion of scalp, initial encounter (principal); M54.9 Dorsalgia, unspecified; Z86.73 Personal history of transient ischemic attack (TIA), and cerebral infarction without residual deficits; I25.10 Atherosclerotic heart disease of native coronary artery without angina pectoris; I11.9 Hypertensive heart disease without heart failure; I43 Cardiomyopathy in diseases classified elsewhere; W19.XXXA Unspecified fall, initial encounter
CPT/HCPCS: 70450; 72131; 99284

== ENCOUNTER → 2024-05-10 14:32 | Outpatient (BNVA) | payer MEDICARE, SELFPAY | PROVIDERS: PCP Nurse Practitioner; Visit Provider Nurse Practitioner | DX: I10 Essential (primary) hypertension (principal) | CPT/HCPCS: 81000; 81003 ==

== ENCOUNTER 2024-05-22 22:56 | Inpatient (IN) | payer MEDICARE, SELFPAY ==
[2024-05-22 22:57] VITALS: BP 129/108; PULSE 98; RESP 18; TEMP 36.6; O2SAT 92; BMI 36.6
--- NOTE | 2024-05-22 23:07 | XRR_ITS ---
PROCEDURE INFORMATION: Exam: XR Chest Exam date and time: 05/23/2024 12:11 AM Age: 83 years old Clinical indication: Cough and dyspnea; Patient HX: Cough; Covid+; SOB; AMS TECHNIQUE: Imaging protocol: Radiologic exam of the chest. Views: 1 view. COMPARISON: CR XR chest 1V portable [id number] 08/11/2022 1:03 PM FINDINGS: Lungs: There is a background of mild emphysema and pulmonary fibrosis. Some strandy opacities are seen in the left lung base, findings may represent atelectasis. Pleural spaces: Unremarkable. No pleural effusion. No pneumothorax. Heart/Mediastinum: Unremarkable. No cardiomegaly. Bones/joints: Unremarkable. Organs: There is a density seen in the retrocardiac region superimposed over the left hemidiaphragm that measures 7.2 cm, findings likely representing a hiatal containing a portion of the stomach. XR/XR chest 1V portable [id number] IMPRESSION: 1. Probable background of mild emphysema and pulmonary fibrosis. 2. Strandy opacities left lung base may represent atelectasis. 3. Density seen in retrocardiac region measuring approximately 7.2 cm transverse dimension likely represents a hiatal hernia containing a portion of the stomach
--- NOTE | 2024-05-22 23:07 | CTR_ITS ---
PROCEDURE INFORMATION: Exam: CT Chest Without Contrast; Diagnostic Exam date and time: 05/23/2024 12:29 AM Age: 83 years old Clinical indication: Cough and shortness of breath; Patient HX: Cough with SOB. Covid positive. ; Additional info: AMS TECHNIQUE: Imaging protocol: Diagnostic computed tomography of the chest without contrast. Radiation optimization: All CT scans at this facility use at least one of these dose optimization techniques: automated exposure control; mA and/or kV adjustment per patient size (includes targeted exams where dose is matched to clinical indication); or iterative reconstruction. COMPARISON: CR (CHEST, ) 05/23/2024 12:11 AM RADIATION DOSE METRICS: Total DLP (mGy-cm): 433.47 FINDINGS: Lungs: There are calcifications of the tracheobronchial tree. Some stranding opacities are seen in the lung bases bilaterally, left slightly prominent than right most probably representing atelectasis. Pleural spaces: Unremarkable. No pneumothorax. No pleural effusion. Heart: Unremarkable. No cardiomegaly. No pericardial effusion. Coronary arteries: Prominent coronary artery calcifications are seen. There is a hernia present measuring approximately 8.9 cm transverse dimension containing a portion the proximal stomach. Lymph nodes: Unremarkable. No enlarged lymph nodes. Vasculature: Calcifications are seen in the thoracic aorta. Bones/joints: Unremarkable. No acute fracture. Soft tissues: Unremarkable. Other findings: There is a background of emphysema. CT/CT chest con [id number] IMPRESSION: 1. Probable mild emphysema with strandy opacities in the lung bases compatible with atelectasis, left more prominent than right. 2. Prominent hiatal hernia containing portion of the proximal stomach
--- NOTE | 2024-05-22 23:08 | ED_ITS ---
Documented by User: JONO Valle 05/23/24 00:42 HPI - Weakness 2 General: Chief complaint: Weakness Stated complaint: SOB Time Seen by Provider: 05/22/24 23:03 History of Present Illness: Patient is an 83-year-old female that presents to the emergency department with altered mentation. Reports that she tested positive for COVID 3 days ago and has had worsening respiratory function since. Today she developed confusion at her assisted living place and was transferred for further evaluation. At this time no family was available at bedside. Patient is unable to answer questions or follow simple commands. Patient has very coarse rattling cough. She is tachypneic She is 96 on 2 L. She is not oxygen dependent. Review of Systems 2 General: Reports: ROS unobtainable due to medical condition PFSH ED 2 PFSH: Medical History Grade I diastolic dysfunction Falls frequently Hip fracture, right Sacroiliac joint pain Depression Insomnia due to anxiety and fear Anemia Mild acid reflux Chronic constipation Knee gives out Right knee with several falls Syncope Osteoarthritis Cerebral vascular disease TIA on 03/01/2021 Seizure disorder Hypothyroidism Coronary artery disease Hypertension Cardiomyopathy Surgical History History of back surgery Status post lumbar spinal fusion Dr. Gunn 07/07/2022 Hx of foot surgery Hx of tubal ligation S/P cataract surgery Family History Brother Seizure disorder Social History Smoking and tobacco/nicotine status: never used tobacco/nicotine Second hand smoke exposure: No Alcohol intake: never Substance/Drug Use: never Adopted: No Lives independently: No Housing: Assisted Living Facility Marital status: / Number of children: 3 Current occupational status: retired Current gender identity: Female Physical Exam 2 Const: EXAM LIMITATIONS: altered mental status GENERAL APPEARANCE: in distress, ill appearing and frail appearing NUTRITIONAL APPEARANCE: obese ORIENTATION/CONSCIOUSNESS: Yes confused and Yes Other orientation findings (Alert to verbal but does not follow commands or answer questions) Chest: CHEST: Yes Symmetrical chest wall rise Resp: EFFORT & INSPECTION: Yes respiratory distress, Yes decreased respiratory effort, Yes labored and Yes Actively coughing moist, loose and rattling A USCULTATION: crackles, rhonchi and diminished lung sounds Cardio: COMMON NORMALS: regular rhythm, S1 normal heart sound present and S2 normal heart sound present JUGULAR VENOUS DISTENTION: no JVD RATE: t achycardic RHYTHM: regular rhythm HEART SOUNDS: S1 normal heart sound present and S2 normal heart sound present GI: COMMON NORMALS: Soft to palpation AUSCULTATION: Yes normoactive bowel sounds PALPATION: Yes Soft to palpation and No Tenderness to palpation present (GI) Neuro: EDUARD COMA SCALE: document GCS findings [place] coma scale eye opening: To sound Eduard coma scale verbal response: Sounds Eduard coma scale motor response: Localising Eduard coma scale total score: 10 S ENSORIUM/ORIENTATION: Yes Orientation impaired and Yes somnolent Course 2 Vital Signs: Vital signs: Vital Signs Temperature 97.8 F 05/22/24 22:57 Pulse Rate 93 05/23/24 00:38 Respiratory Rate 20 H 05/23/24 00:38 Blood Pressure 129/108 05/22/24 22:57 Pulse Oximetry 97 05/23/24 00:38 Oxygen Delivery Me thod Nasal Cannula 05/23/24 00:38 Oxygen Flow Rate 2 05/23/24 00:38 MDM - Weakness Medical Decision Making Patient evaluated in the emergency department today for altered mentation. Differential diagnosis includes hemorrhage, sepsis, stroke, UTI versus pneumonia. Reported COVID-positive status. I obtained a laboratory studies?CBC CMP, troponin series, BNP, urinalysis, COVID influenza RSV. ABG pending We also obtained a chest x-ray and CT chest to rule out pneumonia. DuoNeb treatment ordered Laboratory studies reveals no leukocytosis, anemias, thrombocytopenia. Her sodium and potassium are within normal limits. ABG within normal limits. I reviewed the case with Dr. Krishnamurthy early on. He will be assuming care. In reviewing her medications once family arrives it appears that she is on 2 medications for seizures. There is possibility that patient has had a seizure and is postictal. Lab Data 05/22/24 23:25 05/22/24 23:[address] 05/22/24 23:07 IMPRESSION: 1. Probable mild emphysema with strandy opacities in the lung bases compatible with atelectasis, left more prominent than right. 2. Prominent hiatal hernia containing portion of the proximal stomach Chest X-Ray 05/22/24 23:07 IMPRESSION: 1. Probable background of mild emphysema and pulmonary fibrosis. 2. Strandy opacities left lung base may represent atelectasis. 3. Density seen in retrocardiac region measuring approximately 7.2 cm transverse dimension likely represents a hiatal hernia containing a portion of the stomach Laboratory Results WBC 4.85 10^3/uL (3.29-11.43) 05/22/24 23:25 RBC 4.67 10^6/uL (3.85-5.65) 05/22/24 23:25 Hgb 12.70 g/dL (11.27-16.99) 05/22/24 23:25 Hct 38.0 % (36-47) 05/22/24 23:25 MCV 81.4 fl (85-98) L 05/22/24 23:25 MCH 27.2 pg (27-33) 05/22/24 23:25 MCHC 33.4 g/dL (30-55) 05/22/24 23:25 RDW 13.2 % (12.1-15.1) 05/22/24 23:25 Plt Count 232 10^3/cmm (157-399) 05/22/24 23:25 MPV 10.3 fL (7.4-10.4) 05/22/24 23:25 Neut % (Auto) 56.9 % 05/22/24 23:25 Lymph % (Auto) 21.9 % 05/22/24 23:25 [place] % (Auto) 18.8 % 05/22/24 23:25 Eos % (Auto) 0.4 % 05/22/24 23:25 Baso % (Auto) 1.6 % 05/22/24 23:25 Neut # (Auto) 2.76 10^3/uL (1.8-7.7) 05/22/24 23:25 Lymph # (Auto) 1.1 10^3/uL (0.8-4.8) 05/22/24 23:25 [place] # (Auto) 0.9 10^3/uL (0.2-0.9) 05/22/24 23:25 Eos # (Auto) 0.0 10^3/uL (0.0-0.8) 05/22/24 23:25 Baso # (Auto) 0.1 10^3/uL (0.0-0.1) 05/22/24 23:25 Nucleated RBC % (auto) 0 % 05/22/24 23:25 Nucleated RBCs # 0.0 /100WBC 05/22/24 23:25 Specimen Type Arterial 05/23/24 00:01 Sample Site Brachial, left 05/23/24 00:01 ABG pH 7.42 (7.35-7.45) 05/23/24 00:01 ABG pCO2 39.3 mmHg (35-45) 05/23/24 00:01 ABG pO2 95.3 mmHg (80.0-100.0) 05/23/24 00:01 ABG HCO3 25.6 mmol/L (22-26) 05/23/24 00:01 ABG Base Excess 1.1 mmol/L (-2.0-2.0) 05/23/24 00:01 Sanya Test N/a 05/23/24 00:01 Hematocrit 46.7 % (37-47) 05/23/24 00:01 Hgb O2 Saturation 97.3 % (95-100) 05/23/24 00:01 Carboxyhemoglobin 0.7 %THgb (0.4-20.1) 05/23/24 00:01 Methemoglobin 0.2 % (0.4-1.5) L 05/23/24 00:01 Total Hemoglobin 15.3 g/dL (12-16) 05/23/24 00:01 O2 Delivery Device Nc 05/23/24 00:01 O2 Liters/Min 2.0 % 05/23/24 00:01 Peeled Potato Inspector ID Tobias 05/23/24 00:01 Sodium 136 mmol/L (136-145) 05/22/24 23:25 Potassium 3.7 mmol/L (3.5-5.1) 05/22/24 23:25 Chloride 100 mmol/L (98-107) 05/22/24 23:25 Carbon Dioxide 22 mmol/L (22-29) 05/22/24 23:25 Anion Gap 17.7 (5-19) 05/22/24 23:25 BUN 14 mg/dL (8-23) 05/22/24 23:25 Creatinine 0.8 mg/dL (0.5-0.9) 05/22/24 23:25 GFR Calculation Not Reportable 05/22/24 23:25 Glucose 103 mg/dL (65-115) 05/22/24 23:25 Calculated Osmolality 283 mOsm/kg (285-295) L 05/22/24 23:25 Lactic Acid 1.1 mmol/L (0.5-2.2) 05/23/24 00:21 Calcium 8.3 mg/dL (8.5-10.5) L 05/22/24 23:25 Total Bilirubin 0.3 mg/dL (0.15-1.2) 05/22/24 23:25 AST 23 U/L (0-32) 05/22/24 23:25 ALT 11 U/L (0-33) 05/22/24 23:25 Alkaline Phosphatase 87 U/L (35-105) 05/22/24 23:25 Troponin T Baseline 26 ng/L (0-10) H 05/22/24 23:25 Troponin T 120 Minute 22.76 ng/L (0-10) H 05/23/24 01:37 Delta Troponin T -3.24 ABS# (0-10) L 05/23/24 01:37 NT-Pro-B Natriuret Pep 1100 pg/mL (0-450) H 05/22/24 23:25 Total Protein 5.5 g/dL (6.6-8.7) L 05/22/24 23:25 Albumin 3.6 g/dL (3.5-5.2) 05/22/24 23:25 Globulin 1.9 g/dL (1.3-4.6) 05/22/24 23:25 Coronavirus (PCR) Negative (Negative) 05/22/24 23:19 Influenza A (PCR) Negative (Negative) 05/22/24 23:19 Influenza Type B (PCR) Negative (Negative) 05/22/24 23:19 RSV (PCR) Negative (Negative) 05/22/24 23:19 Discharge Plan Discharge Patient Disposition: Admitted As Inpatient Clinical Impression: Seizure disorder, Acute alteration in mental status, Acute hypoxemic respiratory failure Condition: Fair Prescriptions: No Action cholecalciferol (vitamin D3) 50 mcg (2,000 unit) capsule 50 mcg PO DAILY mecobalamin (vitamin B12) 1,000 mcg tablet,chewable 1,000 mcg PO DAILY lamotrigine [Lamictal] 200 mg tablet 200 mg PO Q12H Qty: 180 1RF levothyroxine 75 mcg tablet 75 mcg PO QAM Qty: 90 1RF amlodipine 2.5 mg tablet 2.5 mg PO DAILY Qty: 90 1RF Rx Instructions: decrease dose due to edema irbesartan-hydrochlorothiazide 300-12.5 mg tablet 1 tab PO DAILY Qty: 90 1RF levetiracetam 750 mg tablet 750 mg PO Q12H Qty: 180 1RF sodium chloride 1,000 mg tablet,soluble 1,000 mg PO DAILY Qty: 90 1RF (DME) Wheelchair medium See Rx Instructions .Route .MEDSUPPLY Qty: 1 0RF Rx Instructions: As directed Referrals: Mine Bowling FNP-C [Primary Care Provider] - Coding Level of Care Code ED Livestock Farmworker for Chg Fwd Related Data Home Medications Medication Instructions Recorded Confirmed cholecalciferol (vitamin D3) 50 50 mcg PO DAILY 09/09/22 05/05/24 mcg (2,000 unit) capsule mecobalamin (vitamin B12) 1,000 1,000 mcg PO DAILY 09/09/22 05/05/24 mcg chewable tablet Previous Rx's Medication Instructions Recorded Wheelchair #1 ea 12/31/22 amlodipine 2.5 mg tablet 2.5 mg PO DAILY hypertension #90 03/11/24 tabs irbesartan 300 1 tab PO DAILY blood pressure #90 03/11/24 mg-hydrochlorothiazide 12.5 mg tabs tablet lamotrigine 200 mg tablet 200 mg PO Q12H #180 tabs 03/11/24 (Lamictal) levetiracetam 750 mg tablet 750 mg PO Q12H #180 tabs 03/11/24 levothyroxine 75 mcg tablet 75 mcg PO QAM #90 tabs 03/11/24 sodium chloride 1,000 mg soluble 1,000 mg PO DAILY #90 tabs 03/15/24 tablet Allergies Allergy/AdvReac Type Severity Reaction Status Date / Time No Known Allergies Allergy Verified 05/22/24 23:06 Documented by User: Alistair Krishnmaurthy DO 05/23/24 03:29 HPI - Weakness 2 General: Chief complaint: Weakness Stated complaint: SOB Time Seen by Provider: 05/22/24 23:03 PFSH ED 2 PFSH: Medical History Grade I diastolic dysfunction Falls frequently Hip fracture, right Sacroiliac joint pain Depression Insomnia due to anxiety and fear Anemia Mild acid reflux Chronic constipation Knee gives out Right knee with several falls Syncope Osteoarthritis Cerebral vascular disease TIA on 03/01/2021 Seizure disorder Hypothyroidism Coronary artery disease Hypertension Cardiomyopathy Surgical History History of back surgery Status post lumbar spinal fusion Dr. Gunn 07/07/2022 Hx of foot surgery Hx of tubal ligation S/P cataract surgery Family History Brother Seizure disorder Social History Smoking and tobacco/nicotine status: never used tobacco/nicotine Second hand smoke exposure: No Alcohol intake: never Substance/Drug Use: never Adopted: No Lives independently: No Housing: Assisted Living Facility Marital status: / Number of children: 3 Current occupational status: retired Current gender identity: Female Physical Exam 2 Neuro: EDUARD COMA SCALE: document GCS findings Eduard coma scale total score: 10 Course 2 Vital Signs: Vital signs: Vital Signs Temperature 97.8 F 05/22/24 22:57 Pulse Rate 93 05/23/24 00:38 Respiratory Rate 20 H 05/23/24 00:38 Blood Pressure 129/108 05/22/24 22:57 Pulse Oximetry 97 05/23/24 00:38 Oxygen Delivery Me thod Nasal Cannula 05/23/24 00:38 Oxygen Flow Rate 2 05/23/24 00:38 MDM - Weakness Medical Decision Making Patient evaluated in the emergency department today for altered mentation. Differential diagnosis includes hemorrhage, sepsis, stroke, UTI versus pneumonia. Reported COVID-positive status. I obtained a laboratory studies?CBC CMP, troponin series, BNP, urinalysis, COVID influenza RSV. ABG pending We also obtained a chest x-ray and CT chest to rule out pneumonia. DuoNeb treatment ordered Laboratory studies reveals no leukocytosis, anemias, thrombocytopenia. Her sodium and potassium are within normal limits. ABG within normal limits. I reviewed the case with Dr. Krishnamurthy early on. He will be assuming care. In reviewing her medications once family arrives it appears that she is on 2 medications for seizures. There is possibility that patient has had a seizure and is postictal. Checked out to me at shift change. 83-year-old female with mental status changes. She is requiring oxygen and usually does not. CT scan shows emphysema with opacities most consistent with atelectasis. She had been COVID-positive, now negative by PCR. She is not back to baseline mental status lynn, she is quite weak. This lady does have a history of seizure disorder, and may have had a seizure and be postictal. Nevertheless since requiring oxygen, will be placed in observation. Hospitalist is aware. Lab Data 05/22/24 23:25 05/22/24 23:[address] 05/22/24 23:07 IMPRESSION: 1. Probable mild emphysema with strandy opacities in the lung bases compatible with atelectasis, left more prominent than right. 2. Prominent hiatal hernia containing portion of the proximal stomach Chest X-Ray 05/22/24 23:07 IMPRESSION: 1. Probable background of mild emphysema and pulmonary fibrosis. 2. Strandy opacities left lung base may represent atelectasis. 3. Density seen in retrocardiac region measuring approximately 7.2 cm transverse dimension likely represents a hiatal hernia containing a portion of the stomach Laboratory Results WBC 4.85 10^3/uL (3.29-11.43) 05/22/24 23:25 RBC 4.67 10^6/uL (3.85-5.65) 05/22/24 23:25 Hgb 12.70 g/dL (11.27-16.99) 05/22/24 23: Hct 38.0 % (36-47) 05/22/24 23:25 MCV 81.4 fl (85-98) L 05/22/24 23: MCH 27.2 pg (27-33) 05/22/24 23: MCHC 33.4 g/dL (30-55) 05/22/24 23: RDW 13.2 % (12.1-15.1) 05/22/24 23: Plt Count 232 10^3/cmm (157-399) 05/22/24 23: MPV 10.3 fL (7.4-10.4) 05/22/24 23: Neut % (Auto) 56.9 % 05/22/24 23: Lymph % (Auto) 21.9 % 05/22/24 23: [place] % (Auto) 18.8 % 05/22/24 23: Eos % (Auto) 0.4 % 05/22/24: Baso % (Auto) 1.6 % 05/22/24: Neut # (Auto) 2.76 10^3/uL (1.8-7.7) 05/22/24 23: Lymph # (Auto) 1.1 10^3/uL (0.8-4.8) 05/22/24 23: [place] # (Auto) 0.9 10^3/uL (0.2-0.9) 05/22/24 23: Eos # (Auto) 0.0 10^3/uL (0.0-0.8) 05/22/24 23: Baso # (Auto) 0.1 10^3/uL (0.0-0.1) 05/22/24 23: Nucleated RBC % (auto) 0 % 05/22/24: Nucleated RBCs # 0.0 /100WBC 05/22/24: Specimen Type Arterial 05/23/24 00:01 Sample Site Brachial, left 05/23/24 00:01 ABG pH 7.42 (7.35-7.45) 05/23/24 00:01 ABG pCO2 39.3 mmHg (35-45) 05/23/24 00:01 ABG pO2 95.3 mmHg (80.0-100.0) 05/23/24 00:01 ABG HCO3 25.6 mmol/L (22-26) 05/23/24 00:01 ABG Base Excess 1.1 mmol/L (-2.0-2.0) 05/23/24 00:01 Sanya Test N/a 05/23/24 00:01 Hematocrit 46.7 % (37-47) 05/23/24 00:01 Hgb O2 Saturation 97.3 % (95-100) 05/23/24 00:01 Carboxyhemoglobin 0.7 %THgb (0.4-20.1) 05/23/24 00:01 Methemoglobin 0.2 % (0.4-1.5) L 05/23/24 00:01 Total Hemoglobin 15.3 g/dL (12-16) 05/23/24 00:01 O2 Delivery Device Nc 05/23/24 00:01 O2 Liters/Min 2.0 % 05/23/24 00:01 Peeled Potato Inspector ID Tobias 05/23/24 00:01 Sodium 136 mmol/L (136-145) 05/22/24 23:25 Potassium 3.7 mmol/L (3.5-5.1) 05/22/24 23:25 Chloride 100 mmol/L (98-107) 05/22/24 23:25 Carbon Dioxide 22 mmol/L (22-29) 05/22/24 23:25 Anion Gap 17.7 (5-19) 05/22/24 23:25 BUN 14 mg/dL (8-23) 05/22/24 23:25 Creatinine 0.8 mg/dL (0.5-0.9) 05/22/24 23:25 GFR Calculation Not Reportable 05/22/24 23:25 Glucose 103 mg/dL (65-115) 05/22/24 23:25 Calculated Osmolality 283 mOsm/kg (285-295) L 05/22/24 23:25 Lactic Acid 1.1 mmol/L (0.5-2.2) 05/23/24 00:21 Calcium 8.3 mg/dL (8.5-10.5) L 05/22/24 23:25 Total Bilirubin 0.3 mg/dL (0.15-1.2) 05/22/24 23:25 AST 23 U/L (0-32) 05/22/24 23:25 ALT 11 U/L (0-33) 05/22/24 23:25 Alkaline Phosphatase 87 U/L (35-105) 05/22/24 23:25 Troponin T Baseline 26 ng/L (0-10) H 05/22/24 23:25 Troponin T 120 Minute 22.76 ng/L (0-10) H 05/23/24 01:37 Delta Troponin T -3.24 ABS# (0-10) L 05/23/24 01:37 NT-Pro-B Natriuret Pep 1100 pg/mL (0-450) H 05/22/24 23:25 Total Protein 5.5 g/dL (6.6-8.7) L 05/22/24 23:25 Albumin 3.6 g/dL (3.5-5.2) 05/22/24 23:25 Globulin 1.9 g/dL (1.3-4.6) 05/22/24 23:25 Coronavirus (PCR) Negative (Negative) 05/22/24 23:19 Influenza A (PCR) Negative (Negative) 05/22/24 23:19 Influenza Type B (PCR) Negative (Negative) 05/22/24 23:19 RSV (PCR) Negative (Negative) 05/22/24 23:19 All radiology interpretation(s) finalized by discharge Discharge Plan Discharge Patient Disposition: Admitted As Inpatient Clinical Impression: Seizure disorder, Acute alteration in mental status, Acute hypoxemic respiratory failure Condition: Fair Prescriptions: No Action cholecalciferol (vitamin D3) 50 mcg (2,000 unit) capsule 50 mcg PO DAILY mecobalamin (vitamin B12) 1,000 mcg tablet,chewable 1,000 mcg PO DAILY lamotrigine [Lamictal] 200 mg tablet 200 mg PO Q12H Qty: 180 1RF levothyroxine 75 mcg tablet 75 mcg PO QAM Qty: 90 1RF amlodipine 2.5 mg tablet 2.5 mg PO DAILY Qty: 90 1RF Rx Instructions: decrease dose due to edema irbesartan-hydrochlorothiazide 300-12.5 mg tablet 1 tab PO DAILY Qty: 90 1RF levetiracetam 750 mg tablet 750 mg PO Q12H Qty: 180 1RF sodium chloride 1,000 mg tablet,soluble 1,000 mg PO DAILY Qty: 90 1RF (DME) Wheelchair medium See Rx Instructions .Route .MEDSUPPLY Qty: 1 0RF Rx Instructions: As directed Referrals: Mine Bowling, TRACK WELDER-C [Primary Care Provider] - Coding Level of Care Code ED Livestock Farmworker for Chg Fwd Related Data Home Medications Medication Instructions Recorded Confirmed cholecalciferol (vitamin D3) 50 50 mcg PO DAILY 09/09/22 05/05/24 mcg (2,000 unit) capsule mecobalamin (vitamin B12) 1,000 1,000 mcg PO DAILY 09/09/22 05/05/24 mcg chewable tablet Previous Rx's Medication Instructions Recorded Wheelchair #1 ea 12/31/22 amlodipine 2.5 mg tablet 2.5 mg PO DAILY hypertension #90 03/11/24 tabs irbesartan 300 1 tab PO DAILY blood pressure #90 03/11/24 mg-hydrochlorothiazide 12.5 mg tabs tablet lamotrigine 200 mg tablet 200 mg PO Q12H #180 tabs 03/11/24 (Lamictal) levetiracetam 750 mg tablet 750 mg PO Q12H #180 tabs 03/11/24 levothyroxine 75 mcg tablet 75 mcg PO QAM #90 tabs 03/11/24 sodium chloride 1,000 mg soluble 1,000 mg PO DAILY #90 tabs 03/15/24 tablet Allergies Allergy/AdvReac Type Severity Reaction Status Date / Time No Known Allergies Allergy Verified 05/22/24 23:06
[2024-05-22 23:35] LABS: Basophils # 0.1 10^3/uL (0.0-0.1); Basophils % 1.6 %; Eosinophils % 0.4 %; Lymphocytes # 1.1 10^3/uL (0.8-4.8); Lymphocytes % 21.9 %; Mean Corpuscular HGB Conc 33.4 g/dL (30-55); Mean Corpuscular Hemoglobin 27.2 pg (27-33); Mean Corpuscular Volume 81.4 fl (85-98); Mean Platelet Volume 10.3 fL (7.4-10.4); Monocytes # 0.9 10^3/uL (0.2-0.9); Monocytes % 18.8 %; Neutrophils # 2.76 10^3/uL (1.8-7.7); Neutrophils % 56.9 %; Nucleated Red Blood Cells % 0 %; Platelet Count 232 10^3/cmm (157-399); Red Blood Count 4.67 10^6/uL (3.85-5.65); Red Cell Distribution Width 13.2 % (12.1-15.1); White Blood Count 4.85 10^3/uL (3.29-11.43)
[2024-05-22] MEDS: sodium chloride 0.9% 500 ML 999 ML IV (23:35)
--- NOTE | 2024-05-22 23:44 | ECG_ITS ---
[facility] Test Date: 2024-05-22 Pat Name: Sujata Lomeli Department: Room: Gender: Female Instrument Mechanics Supervisor: : [id number] Requested By: Juliet Ferrer Order Number: [id number] Dany MD: Adiel Shah M.D. Measurements Intervals [place] Rate: 95 P: 56 NV: 152 QRS: 5 QRSD: 95 T: 13 QT: 378 QTc: 477 Interpretive Statements SINUS RHYTHM Compared to ECG 04/16/2023 11:49:44 No significant changes Electronically Signed On 05-23-2024 20:07:02 ANTENNA INSTALLER by Adiel Shah M.D. [email or web address]
[2024-05-22 23:54] LABS: Troponin(5th) Baseline 26 ng/L (0-10)
[2024-05-23] VITALS (13 sets, daily range): BP systolic 128–186; BP diastolic 71–90; PULSE 79–100; RESP 16–21; TEMP 36.9–38.6; O2SAT 94–97; BMI 36.7
[2024-05-23 00:06] LABS: Alanine Aminotransferase 11 U/L (0-33); Albumin Level 3.6 g/dL (3.5-5.2); Alkaline Phosphatase 87 U/L (35-105); Aspartate Amino Transferase 23 U/L (0-32); Blood Urea Nitrogen 14 mg/dL (8-23); Calcium 8.3 mg/dL (8.5-10.5); Carbon Dioxide 22 mmol/L (22-29); Chloride 100 mmol/L (98-107); Creatinine Clr Calc Pharmacy 57.7658; Globulin 1.9 g/dL (1.3-4.6); Glucose 103 mg/dL (65-115); NT Pro B Type Natriuretic Pept 1100 pg/mL (0-450); Osmolality Calculated 283 mOsm/kg (285-295); Sodium 136 mmol/L (136-145); Total Bilirubin 0.3 mg/dL (0.15-1.2); Total Protein 5.5 g/dL (6.6-8.7)
[2024-05-23 00:10] LABS: Anion Gap 17.7 (5-19); Potassium 3.7 mmol/L (3.5-5.1)
[2024-05-23 00:12] LABS: Covid PCR NEGATIVE (Negative); Influenza A NEGATIVE (Negative); Influenza B NEGATIVE (Negative); Respiratory Syncytial Virus Ce NEGATIVE (Negative)
[2024-05-23 00:16] LABS: ABG PCO2 39.3 mmHg (35-45); ABG PH Result 7.42 (7.35-7.45); Arterial Blood Gas Hematocrit 46.7 % (37-47); Base Excess ABG 1.1 mmol/L (-2.0-2.0); Blood Gas Operator Identificat SAM; Blood Gas Sample Site Brachial, left; Blood Gas Sample Type Arterial; Carboxyhemoglobin 0.7 %THgb (0.4-20.1); HCO3 ABG 25.6 mmol/L (22-26); HGB O2 Sat 97.3 % (95-100); Methemoglobin 0.2 % (0.4-1.5); Oxygen Device NC; PO2 ABG 95.3 mmHg (80.0-100.0); Total Hemoglobin 15.3 g/dL (12-16)
[2024-05-23] MEDS: ipratropium-albuterol 3 mL Neb INHALATION (00:38)
[2024-05-23 00:57] LABS: Lactic Sepsis W/Reflex 1.1 mmol/L (0.5-2.2)
--- NOTE | 2024-05-23 01:08 | ECG_ITS ---
[facility] Date: 2024-05-23 Pat Name: Sujata Lomeli Department: Room: Gender: Female Cigarette Vendor: : [id number] Requested By: Juliet Ferrer Order Number: [id number] Dany MD: Adile Shah M.D. Measurements Intervals [place] Rate: 97 P: 61 DC: 159 QRS: 3 QRSD: 101 T: 15 QT: 383 QTc: 487 Interpretive Statements SINUS RHYTHM Compared to ECG 05/22/2024 23:44:22 No significant changes Electronically Signed On 05-23-2024 20:29:35 JOB PLACEMENT COUNSELOR by Adiel Shah M.D. [email or web address]
[2024-05-23 02:04] LABS: Troponin 5 2HR 22.76 ng/L (0-10)
[2024-05-23 02:08] LABS: Troponin 5 2HR Delta -3.24 ABS# (0-10)
[2024-05-23] MEDS: sodium chloride 0.9% 1,000 ML 999 ML IV (02:10)
--- NOTE | 2024-05-23 04:28 | P.HP_ITS ---
Providers/Chief Complaint 2 Admitting Physician: Ronan Schumacher MD Primary Care Provider: Mine Bowling, MATT-C Chief Complaint: SOB History of Present Illness Sujata Lomeli is a 83 year old female from a assisted living facility, history of seizures, TIA who presents [facility] from due to altered mental status. She was positive for COVID 3 days ago, has had reported worsening of her respiratory function since then increased cough. Today she was noted to be confused, there was concern for possible seizure-like episode, and his postictal with possible aspiration. Currently patient is alert and oriented to person, to place,, not to time, she is globally encephalopathic, does not follow commands, normotensive, respiratory 20, on 2 L actively coughing, no evidence of respiratory distress Review of Systems 2 General: Reports: ROS unobtainable due to mental status Medications/Allergies Home Medications Medication Instructions Recorded Confirmed Last Taken Type cholecalciferol (vitamin D3) 50 50 mcg PO DAILY 09/09/22 05/05/24 04/16/23 History mcg (2,000 unit) capsule mecobalamin (vitamin B12) 1,000 1,000 mcg PO DAILY 09/09/22 05/05/24 04/16/23 History mcg chewable tablet Wheelchair #1 ea 12/31/22 05/05/24 Unknown Rx amlodipine 2.5 mg tablet 2.5 mg PO DAILY hypertension #90 03/11/24 05/05/24 Unknown Rx tabs irbesartan 300 1 tab PO DAILY blood pressure #90 03/11/24 05/05/24 Unknown Rx mg-hydrochlorothiazide 12.5 mg tabs tablet lamotrigine 200 mg tablet 200 mg PO Q12H #180 tabs 03/11/24 05/05/24 Unknown Rx (Lamictal) levetiracetam 750 mg tablet 750 mg PO Q12H #180 tabs 03/11/24 05/05/24 Unknown Rx levothyroxine 75 mcg tablet 75 mcg PO QAM #90 tabs 03/11/24 05/05/24 Unknown Rx sodium chloride 1,000 mg soluble 1,000 mg PO DAILY #90 tabs 03/15/24 05/05/24 Unknown Rx tablet Allergies Allergy/AdvReac Type Severity Reaction Status Date / Time No Known Allergies Allergy Verified 05/22/24 23:06 PFSH Acute 2 PFSH: Medical History Grade I diastolic dysfunction Falls frequently Hip fracture, right Sacroiliac joint pain Depression Insomnia due to anxiety and fear Anemia Mild acid reflux Chronic constipation Knee gives out Right knee with several falls Syncope Osteoarthritis Cerebral vascular disease TIA on 03/01/2021 Seizure disorder Hypothyroidism Coronary artery disease Hypertension Cardiomyopathy Surgical History History of back surgery Status post lumbar spinal fusion Dr. Gunn 07/07/2022 Hx of foot surgery Hx of tubal ligation S/P cataract surgery Family History Brother Seizure disorder Social History Smoking and tobacco/nicotine status: never used tobacco/nicotine Second hand smoke exposure: No Alcohol intake: never Substance/Drug Use: never Adopted: No Lives independently: No Housing: Assisted Living Facility Marital status: / Number of children: 3 Current occupational status: retired Current gender identity: Female Vitals/I&O/Wt Last Vital Signs Temp 97.8 F 05/22/24 22:57 Pulse 79 05/23/24 04:27 Resp 20 H 05/23/24 00:38 BP 128/89 05/23/24 04:27 Pulse Ox 96 05/23/24 04:27 O2 Del Method Nasal Cannula 05/23/24 00:38 O2 Flow Rate 2 05/23/24 00:38 Weight last 48 hrs Weight 90.718 kg Physical Exam 2 Const: COMMON NORMALS: no acute distress EXAM LIMITATIONS: altered mental status ORIENTATION/CONSCIOUSNESS: Yes awake, Yes oriented to person and Yes confused; not oriented to place and not oriented to time HENMT: COMMON NORMALS: normocephalic HEAD & SCALP: normocephalic Neck/C-Spine: COMMON NORMALS: no JVD Resp: COMMON NORMALS: normal respiratory effort, No retractions, No use of accessory muscles and clear to auscultation bilaterally AUSCULTATION: wheezes Cardio: COMMON NORMALS: no JVD, regular rate, regular rhythm, S1 normal heart sound present and S2 normal heart sound present RATE: regular rate RHYTHM: regular rhythm HEART SOUNDS: S1 normal heart sound present and S2 normal heart sound present GI: COMMON NORMALS: Normal to inspection, nondistended, normoactive bowel sounds present, Soft to palpation and non-tender Extremity: COMMON NORMALS: no pedal edema Neuro: COMMON NORMALS: moves all extremities Data 05/22/24 23:25 05/22/24 23:25 Micro: Microbiology 05/22/24 23:53 Blood Culture - Preliminary Blood SPECIMEN COLLECTED 05/22/24 23:50 Blood Culture - Preliminary Blood SPECIMEN COLLECTED A&P Assessment and plan (1) Acute encephalopathy: (2) Pneumonia: (3) Breakthrough seizure: Plan Acute encephalopathy, toxic encephalopathy -Potentially related to recent COVID-19, pneumonia, hypoxia -Will order CT of the head -UA has been ordered -Possible postictal state? -Neurochecks, seizure precautions, aspiration precautions Recent history of COVID-19, now with pneumonia -Concerns for aspiration pneumonia possible seizure, -Here COVID-19 testing has been negative -Start Zosyn -Follow blood cultures Possible breakthrough seizure -Continue Lamictal -Increase Keppra to thousand twice daily -Monitor mentation Hypothyroidism continue levothyroxine Full code Lovenox for DVT prophylaxis Attestations 2 Medical Necessity Statement*: Patient requires hospitalization inpatient, greater than 2 midnights for altered mental status, breakthrough seizure Diagnoses Acute encephalopathy G93.40 Pneumonia J18.9 Breakthrough seizure G40.919
--- NOTE | 2024-05-23 04:32 | CT_ITS ---
WS: [id number] CT HEAD NONCONTRAST HISTORY: ams TECHNIQUE: Contiguous axial imaging performed through the brain. Bone and soft tissue windows. Sagitt al and coronal reformats reviewed. All CT scans at [facility] use at least one of these dose optimization techniques: automated exposure control; mA and/or kV adjustment per patient size (includ es targeted exams where dose is matched to clinical indication); or iterative reconstruction. DLP: 1032.24 mGy.cm COMPARISON: 03/12/2024 No acute intracranial hemorrhage, midline shift or mass effect. Severe atrophy and severe small vessel ischemic changes. Confluent low-attenuation throughout the whi te matter. There is extensive small vessel disease in the efren and atrophy in the cerebellum. Bilater al lacunar infarcts in the basal ganglia. Ventricles: Ventricles and extra-axial spaces are prominent on the basis of atrophy. Paranasal sinuses: As visualized are clear. Mastoid air cells: Well pneumatized. Calvarium and scalp: Skull is intact with no soft tissue edema or swelling. CT/CT head wo con* 15419 IMPRESSION: 1. No acute intracranial hemorrhage or edema. 2. Severe cerebral and cerebellar atrophy and small vessel disease. 3. Ventriculomegaly on the basis of atrophy.
[2024-05-23] MEDS: pantoprazole 40 mg SDV IVP (05:42)
[2024-05-23] MEDS: enoxaparin 40 mg/0.4 mL Syringe SUBCUT (05:42)
[2024-05-23] MEDS: levETIRAcetam 1,000 MG/100 ML PREMIX 400 MG IV ×2 (05:49→18:04)
[2024-05-23 06:23] LABS: Troponin 5 6HR 22.37 ng/L (0-10)
[2024-05-23 06:28] LABS: Troponin 5 6HR Delta -3.63 ng/L (0-12)
[2024-05-23 06:30] LABS: Procalcitonin 0.12 ng/mL (0-0.5); Thyroid Stimulating Hormone 1.98 uIU/mL (0.27-4.20)
[2024-05-23] MEDS: piperacillin-tazobactam 3.375 GM in sodium chloride 0.9% (plus) 50 ML IV ×3 (06:30→20:39)
[2024-05-23 06:40] LABS: Bilirubin Urine Negative (Negative); Blood Urine Negative (Negative); Glucose Urine UA Negative (Normal); Ketones Urine 1+ (Negative); Leukocyte Esterase Urine Negative (Negative); Nitrate Urine Negative (Negative); Protein Urine 1+ (Negative); Specific Gravity, Urine 1.025 (1.005-1.030); Urine Appearance Clear (CLEAR); Urine Color Yellow (Yellow)
[2024-05-23 06:41] LABS: C Reactive Protein 60.6 mg/L (0.0-4.9)
[2024-05-23 06:45] LABS: Add Urine Microscopic? YES; Bacteria Urine None Seen /hpf; Hyaline Casts Urine 6.61 /lpf; RBC Urine 0-2 /hpf (0-2); Squamous Epithelial Cell Urine 0-5 /hpf (0-5); WBC Urine 0-5 /hpf (0-5)
--- NOTE | 2024-05-23 08:28 | PC.PHAR ---
Pt is resident at [facility]
[2024-05-23 13:39] LABS: Basophils % 0.5 %; Eosinophils % 0.4 %; Hematocrit 37.8 % (36-47); Lymphocytes % 11.2 %; Mean Corpuscular HGB Conc 33.1 g/dL (30-55); Mean Corpuscular Hemoglobin 27.5 pg (27-33); Mean Corpuscular Volume 83.1 fl (85-98); Mean Platelet Volume 10.6 fL (7.4-10.4); Monocytes # 0.9 10^3/uL (0.2-0.9); Monocytes % 10.4 %; Neutrophils # 6.54 10^3/uL (1.8-7.7); Neutrophils % 77.3 %; Nucleated Red Blood Cells % 0 %; Platelet Count 217 10^3/cmm (157-399); Red Blood Count 4.55 10^6/uL (3.85-5.65); Red Cell Distribution Width 13.2 % (12.1-15.1); White Blood Count 8.46 10^3/uL (3.29-11.43)
[2024-05-23 13:58] LABS: Estmated Average Glucose 103; Hemoglobin A1C 5.2 % (4.0-6.0)
[2024-05-23 14:00] LABS: Alanine Aminotransferase 10 U/L (0-33); Albumin Level 3.4 g/dL (3.5-5.2); Alkaline Phosphatase 74 U/L (35-105); Anion Gap 11.6 (5-19); Aspartate Amino Transferase 20 U/L (0-32); Blood Urea Nitrogen 17 mg/dL (8-23); Calcium 8.5 mg/dL (8.5-10.5); Carbon Dioxide 27 mmol/L (22-29); Chloride 102 mmol/L (98-107); Creatinine Clr Calc Pharmacy 57.9239; Globulin 2.5 g/dL (1.3-4.6); Glucose 105 mg/dL (65-115); Iron 9 ug/dL (37-145); Osmolality Calculated 286 mOsm/kg (285-295); Percent Saturation 3.9 % (20-50); Potassium 3.6 mmol/L (3.5-5.1); Sodium 137 mmol/L (136-145); Total Bilirubin 0.3 mg/dL (0.15-1.2); Total Iron Binding Capacity 226 mcg/dl; Total Protein 5.9 g/dL (6.6-8.7); Unsaturated Iron Binding 217 ug/dL (112-347)
[2024-05-23 14:15] LABS: Procalcitonin 0.27 ng/mL (0-0.5); Vitamin B12 1803 pg/mL (232-1245)
--- NOTE | 2024-05-23 16:24 | W.PM.EVENTAC ---
Event Note Event Note: Admitted overnight. H&P labs appreciated. Seen with multiple family members at bedside. Patient is awake but not alert. Having conductive airway sounds. Needing to clear her throat multiple times. Patient is not oriented. Currently on 1 L nasal cannula oxygen supplementation saturating more than 95%. Has remained hemodynamically stable otherwise. No documented seizures. Discussed in detail with patient's assisted living [facility] nursing staff. Patient has been having worsening mentation and lethargy for last 2 to 3 days with unable to get out of bed which is new for her. Patient was diagnosed of COVID-19 3 days ago. Plan: COVID-19 negative and current hospitalization. Check respiratory viral panel, MRSA swab. Not sure of recent seizures. Check Keppra levels, lamotrigine level. Check CBC and CMP for today. Will also add procalcitonin. Continue with IV Zosyn for now. If MRSA swab is positive will plan to add vancomycin. Patient on minimal oxygen supplementation for now. Keep NPO. Speech evaluation. Advance diet accordingly. Continue other chronic home medication. Incentive spirometry and flutter valve. Patient's care discussed in detail with patient's family at bedside. All the questions were answered. Event Notes Attestations Time Spent in Patient Care: Greater than 35 minutes Getting history from patient's family, nursing staff from assisted living, reviewing labs and adding additional labs.
[2024-05-23] MEDS: levalbuterol 0.63 mg/3 mL Neb INHALATION (17:39)
[2024-05-23 20:28] LABS: MRSA PCR OZH (swab) NOT DETECTED (Not Detecte)
[2024-05-23 20:40] LABS: Adenovirus Not Detected (NOT DETECT); Chlamydia Pneumoniae Not Detected (NOT DETECT); Coronavirus 229E,HKU1,NL63,OC4 Not Detected (NOT DETECT); Human Metapneumovirus Not Detected (NOT DETECT); Human Rhinovirus/Enterovirus Not Detected (NOT DETECT); Influenza A Not Detected (NOT DETECT); Influenza A H1 Not Detected (NOT DETECT); Influenza A H1-2009 Not Detected (NOT DETECT); Influenza A H3 Not Detected (NOT DETECT); Influenza B Not Detected (NOT DETECT); Mycoplasma Pneumoniae Not Detected (NOT DETECT); Parainfluenza Virus Type 1 Not Detected (NOT DETECT); Parainfluenza Virus Type 2 Not Detected (NOT DETECT); Parainfluenza Virus Type 3 Not Detected (NOT DETECT); Parainfluenza Virus Type 4 Not Detected (NOT DETECT); Respiratory Syncytial Virus A Not Detected (NOT DETECT); Respiratory Syncytial Virus B Not Detected (NOT DETECT)
[2024-05-23 20:42] LABS: SARS-COV-2 Detected (NOT DETECT)
[2024-05-23] MEDS: remdesivir 200 MG in sodium chloride 0.9% (100 ml) 60 ML 100 MG IV (23:34)
[2024-05-23] MEDS: dexamethasone 10 mg/mL INJ 6 MG IVP (23:35)
[2024-05-24] VITALS (9 sets, daily range): BP systolic 125–150; BP diastolic 66–88; PULSE 76–88; RESP 16–18; TEMP 36.6–37.2; O2SAT 94–98
[2024-05-24] MEDS: levothyroxine 75 mcg Tablet PO (05:29)
[2024-05-24] MEDS: lamoTRIgine 100 mg Tablet 200 MG PO ×2 (05:29→16:27)
[2024-05-24] MEDS: enoxaparin 40 mg/0.4 mL Syringe SUBCUT (05:30)
[2024-05-24] MEDS: pantoprazole 40 mg SDV IVP (05:30)
[2024-05-24] MEDS: levETIRAcetam 1,000 MG/100 ML PREMIX 400 MG IV ×2 (05:31→18:13)
[2024-05-24] MEDS: piperacillin-tazobactam 3.375 GM in sodium chloride 0.9% (plus) 50 ML IV ×3 (06:34→22:36)
[2024-05-24 06:53] LABS: Basophils % 0.5 %; Hematocrit 39.5 % (36-47); Lymphocytes # 0.6 10^3/uL (0.8-4.8); Lymphocytes % 13.6 %; Mean Corpuscular HGB Conc 31.6 g/dL (30-55); Mean Corpuscular Hemoglobin 26.9 pg (27-33); Mean Corpuscular Volume 84.9 fl (85-98); Mean Platelet Volume 10.8 fL (7.4-10.4); Monocytes # 0.1 10^3/uL (0.2-0.9); Monocytes % 3.3 %; Neutrophils # 3.53 10^3/uL (1.8-7.7); Neutrophils % 82.6 %; Nucleated Red Blood Cells % 0 %; Platelet Count 206 10^3/cmm (157-399); Red Blood Count 4.65 10^6/uL (3.85-5.65); Red Cell Distribution Width 13.2 % (12.1-15.1); White Blood Count 4.27 10^3/uL (3.29-11.43)
[2024-05-24 07:05] LABS: Alanine Aminotransferase 10 U/L (0-33); Albumin Level 3.1 g/dL (3.5-5.2); Alkaline Phosphatase 75 U/L (35-105); Anion Gap 18.8 (5-19); Aspartate Amino Transferase 19 U/L (0-32); Blood Urea Nitrogen 20 mg/dL (8-23); Calcium 8.5 mg/dL (8.5-10.5); Carbon Dioxide 22 mmol/L (22-29); Chloride 100 mmol/L (98-107); Creatinine Clr Calc Pharmacy 58.5244; Globulin 2.8 g/dL (1.3-4.6); Glucose 150 mg/dL (65-115); Osmolality Calculated 289 mOsm/kg (285-295); Potassium 3.8 mmol/L (3.5-5.1); Sodium 137 mmol/L (136-145); Total Bilirubin 0.2 mg/dL (0.15-1.2); Total Protein 5.9 g/dL (6.6-8.7)
[2024-05-24 07:24] LABS: Folate Level 12.4 ng/mL (4.8-37.3)
[2024-05-24 07:26] LABS: Chol HDL Ratio 2.34 mg/dL (0.0-4.40); Cholesterol 159 mg/dL (0-200); HDL Cholesterol 68 mg/dL (60-100); LDL Cholesterol Calculated 80 mg/dL (50-129); Magnesium 2.1 mg/dL (1.7-2.3); Triglycerides 53 mg/dL (0-150); VLDL Cholestrol Calculation 11 mg/dL (0-30)
[2024-05-24] MEDS: levalbuterol 0.63 mg/3 mL Neb INHALATION ×2 (08:16→21:55)
--- NOTE | 2024-05-24 10:25 | PC.CHAP ---
Pastoral Care Encounter/Spiritual Assessment Type of Contact [] Declined power house engineer visit [] Patient/Family/Request visit [] Outpatient visit [] Follow-up visit [] Physician referral [] Code/Alert [] Routine visit [] Staff referral [] Actively dying [] Patient sleeping [] Family support [] [] Out of room [] Palliative care [] [] Receiving care in room [] Pre-surgical visit [] Trauma [] Long length of stay [] ICU visit [x] Other:Contact precautions. No visit. Relational/Emotional Strength [] Patient feels connected with others/family/visitors/staff [] Distress [] Loneliness/isolation [] Abandonment Spirituality of Patient [] Person of Janet [] Attends Nondenominational of their Janet [] Believes in Prayer [] Reads Bible or Restorationist materials [] There are Spiritual issues to be addressed [employer] Interventions [] Prayer [] Active listening [] Non-anxious presence [] Spiritual/emotional support [] Crisis/trauma care [] Spiritual counseling [] Bereavement support [] Provided bereavement packet [] Provided Bible/devotional materials [] Provided toy/stuffed animal, coloring book to patient or family member [] Provided Communion [] Anointing/[place] [] Salvation [] Completed spiritual assessment [] Other: Impact on Illness or Injury [] Angry [] Fearful [] Anxious [] Often cries [] Exhaustion [] Unable to work [] Unable to attend temple [] Unable to walk/stand [] Unable to read [] Unable to drive [] Unable to eat/drink [] Unable to sleep [] Unable to be with family [] Patient intubated [] Other: Summary Time spent with patient
--- NOTE | 2024-05-24 13:45 | P.PN_ITS ---
Subjective 2 Subjective: No acute events overnight. Seen with multiple family members at bedside. Patient is more awake and alert today. Able to complete conversation. Denies any nausea, vomiting, headache. On 1 L of oxygen supplementation saturating more than 95%. Vitals/I&O/Wt Last Vital Signs Temp 97.8 F 05/24/24 07:25 Pulse 76 05/24/24 08:16 Resp 18 05/24/24 08:16 BP 144/77 05/24/24 07:25 Pulse Ox 98 05/24/24 08:16 O2 Del Method Nasal Cannula 05/24/24 08:16 O2 Flow Rate 1 05/24/24 08:16 05/23/24 05/24/24 05/24/24 22:59 06:59 14:59 Intake Total 150 / 200 250 / 450 50 / 50 Balance 150 / 200 250 / 450 50 / 50 Weight last 48 hrs Weight 92.896 kg Weight 91.172 kg Weight 91.172 kg Weight 90.718 kg Physical Exam 2 Narrative: General: No acute distress, AO x3, tired appearing HEENT: PERRLA, pupils bilaterally equal and reactive Chest: Bilateral bronchial breath sounds with occasional rhonchi CVS: S1-S2 regular, no murmurs, no tachycardia, no gallops, no rubs Abdomen: Soft, nontender, no organomegaly, bowel sounds present Neuro: No focal deficits, no facial deformity, AO x3, power 5/5 in all limbs Data 05/24/24 06:25 05/24/24 06:25 Micro: Microbiology 05/22/24 23:53 Blood Culture - Preliminary Blood NEGATIVE TO DATE 05/22/24 23:50 Blood Culture - Preliminary Blood NEGATIVE TO DATE 05/23/24 06:30 Bacterial Antigens - Final Urine Kidney A&P Assessment and plan (1) Acute encephalopathy: (2) COVID-19: (3) Pneumonia: (4) Breakthrough seizure: (5) Dementia: Plan Acute metabolic encephalopathy: Most likely worsening of baseline mild dementia in setting of COVID-19 leading to weakness. Resolved. Hypoxia secondary to COVID-19 pneumonia: Mild disease. Oxygen supplementation keeping saturation over 88%. Dexamethasone 6 mg daily. Remdesivir to finish a 3 to 5-day course. Ipratropium, Xopenex every 6 hour, budesonide twice daily Pulmonary toilet with incentive spirometry flutter valve. Appreciate CT chest results from admission. Concerns for mild bilateral posterior lobe pneumonia versus atelectasis, left more than right. Check sputum culture, trend procalcitonin, follow-up blood culture. Procalcitonin negative. Low suspicion of bacterial infection for now. For now continue with treatment for community-acquired pneumonia with IV Zosyn. Will plan to transition to oral antibiotic on discharge. Discussed return regarding aspiration precaution. Discussed about setting up in bed for at least 45 minutes post each meal. Discussed about making sure her head of the bed elevated to at least 45 degrees prevent from aspiration. Concern for mild aspiration pneumonia: Patient more awake today. Follow speech evaluation advance diet accordingly. Antibiotic as above. History of seizure disorder: Concern for possible breakthrough seizure on admission. Unwitnessed. Follow-up Lamictal and Keppra levels. For now continue with Lamictal 200 mg twice daily, Keppra 1 g twice daily. Hypertension: Goal blood pressure less than 140/90 mmHg. Holding off on home antibiotics for now. Discharge planning: Plan to discharge back to assisted living within next 24 to 48 hours if patient remains on room air after completion of 3-day course of IV remdesivir on oral antibiotics and diet as per speech evaluation. Physical therapy evaluation to see safety of going back to assisted living. Dysphagia level 6 diet as per speech evaluation Protonix for PUD prophylaxis Lovenox for DVT prophylaxis Attestations 2 Medical Necessity Statement*: Requires further hospitalization for management of altered mental status in setting of COVID-19, mild hypoxia in setting of COVID-19 and aspiration pneumonia versus discharge planning is not Diagnoses Acute encephalopathy G93.40 COVID-19 U07.1 Pneumonia J18.9 Breakthrough seizure G40.919 Dementia F03.90
[2024-05-24] MEDS: remdesivir 100 MG in sodium chloride 0.9% (100 ml) 80 ML IV (21:25)
[2024-05-24] MEDS: dexamethasone 10 mg/mL INJ 6 MG IVP (21:27)
[2024-05-24] MEDS: budesonide 0.5 mg/2 mL Neb INHALATION (21:55)
[2024-05-24] MEDS: ipratropium 0.5 mg/2.5 mL Neb INHALATION (21:55)
[2024-05-25] VITALS (12 sets, daily range): BP systolic 129–161; BP diastolic 66–110; PULSE 75–89; RESP 14–20; TEMP 36.3–37.1; O2SAT 90–98
[2024-05-25] MEDS: levalbuterol 0.63 mg/3 mL Neb INHALATION ×4 (03:10→14:26)
[2024-05-25] MEDS: ipratropium 0.5 mg/2.5 mL Neb INHALATION ×3 (03:11→14:26)
[2024-05-25] MEDS: enoxaparin 40 mg/0.4 mL Syringe SUBCUT (05:02)
[2024-05-25] MEDS: levETIRAcetam 1,000 MG/100 ML PREMIX 400 MG IV (05:03)
[2024-05-25] MEDS: levothyroxine 75 mcg Tablet PO (05:03)
[2024-05-25] MEDS: lamoTRIgine 100 mg Tablet 200 MG PO ×2 (05:03→17:47)
[2024-05-25] MEDS: pantoprazole 40 mg SDV IVP (05:03)
[2024-05-25] MEDS: piperacillin-tazobactam 3.375 GM in sodium chloride 0.9% (plus) 50 ML IV ×3 (05:30→22:32)
[2024-05-25 05:42] LABS: Basophils % 0.3 %; Hematocrit 36.2 % (36-47); Lymphocytes # 0.4 10^3/uL (0.8-4.8); Mean Corpuscular HGB Conc 33.1 g/dL (30-55); Mean Corpuscular Hemoglobin 27.3 pg (27-33); Mean Corpuscular Volume 82.3 fl (85-98); Mean Platelet Volume 10.6 fL (7.4-10.4); Monocytes # 0.2 10^3/uL (0.2-0.9); Monocytes % 5.2 %; Neutrophils # 2.68 10^3/uL (1.8-7.7); Neutrophils % 81.2 %; Nucleated Red Blood Cells % 0 %; Platelet Count 209 10^3/cmm (157-399); Red Cell Distribution Width 13.1 % (12.1-15.1)
[2024-05-25 06:03] LABS: Alanine Aminotransferase 10 U/L (0-33); Albumin Level 3.2 g/dL (3.5-5.2); Alkaline Phosphatase 65 U/L (35-105); Anion Gap 13.5 (5-19); Aspartate Amino Transferase 17 U/L (0-32); Blood Urea Nitrogen 23 mg/dL (8-23); Calcium 8.1 mg/dL (8.5-10.5); Carbon Dioxide 26 mmol/L (22-29); Chloride 102 mmol/L (98-107); Creatinine Clr Calc Pharmacy 57.0394; Globulin 2.3 g/dL (1.3-4.6); Glucose 169 mg/dL (65-115); Osmolality Calculated 294 mOsm/kg (285-295); Potassium 3.5 mmol/L (3.5-5.1); Sodium 138 mmol/L (136-145); Total Bilirubin 0.2 mg/dL (0.15-1.2); Total Protein 5.5 g/dL (6.6-8.7)
[2024-05-25 06:10] LABS: Magnesium 1.9 mg/dL (1.7-2.3)
[2024-05-25 07:03] LABS: Levetiracetam Immunoassy 43.2 mcg/mL (6.0-46.0)
[2024-05-25] MEDS: budesonide 0.5 mg/2 mL Neb INHALATION (09:26)
--- NOTE | 2024-05-25 12:12 | P.PN_ITS ---
Subjective 2 Subjective: No acute events overnight. Patient has remained hemodynamically stable and afebrile. Today morning examination was on 1 L of oxygen supplementation saturating more than 95%. During conversation was put on room air and was saturating well. Denies any difficulty in breathing. Seems to be at her baseline mentation but slightly confused. Vitals/I&O/Wt Last Vital Signs Temp 97.8 F 05/25/24 11:02 Pulse 89 05/25/24 11:02 Resp 16 05/25/24 09:20 BP 156/110 05/25/24 11:02 Pulse Ox 97 05/25/24 11:02 O2 Del Method Nasal Cannula 05/25/24 11:02 O2 Flow Rate 2 05/25/24 11:02 05/24/24 05/25/24 05/25/24 22:59 06:59 14:59 Intake Total 250 / 300 180 / 480 50 / 50 Balance 250 / 300 180 / 480 50 / 50 Weight last 48 hrs Weight 88.632 kg Weight 92.896 kg Physical Exam 2 Narrative: General: No acute distress, AO x3, episodes of confusion, seems to be at her baseline mentation. HEENT: PERRLA, pupils bilaterally equal and reactive Chest: Bilateral bronchial breath sounds with occasional rhonchi CVS: S1-S2 regular, no murmurs, no tachycardia, no gallops, no rubs Abdomen: Soft, nontender, no organomegaly, bowel sounds present Neuro: No focal deficits, no facial deformity, AO x3, power 5/5 in all limbs Data 05/25/24 05:04 05/25/24 05:04 A&P Assessment and plan (1) Acute encephalopathy: (2) COVID-19: (3) Pneumonia: (4) Breakthrough seizure: (5) Dementia: (6) Hypoxia: (7) Hypertension: Qualifiers: Hypertension type: primary hypertension Qualified Code(s): I10 - Essential (primary) hypertension Plan Acute metabolic encephalopathy: Most likely worsening of baseline mild dementia in setting of COVID-19 leading to weakness. Resolved. Hypoxia secondary to COVID-19 pneumonia: Mild disease. Oxygen supplementation keeping saturation over 88%. Dexamethasone 6 mg daily. Remdesivir to finish a 3 to 5-day course. Ipratropium, Xopenex every 6 hour, budesonide twice daily Pulmonary toilet with incentive spirometry flutter valve. Appreciate CT chest results from admission. Concerns for mild bilateral posterior lobe pneumonia versus atelectasis, left more than right. Check sputum culture, trend procalcitonin, follow-up blood culture. Procalcitonin negative. Low suspicion of bacterial infection for now. For now continue with treatment for community-acquired pneumonia with IV Zosyn. Will plan to transition to oral antibiotic on discharge. Discussed return regarding aspiration precaution. Discussed about setting up in bed for at least 45 minutes post each meal. Discussed about making sure her head of the bed elevated to at least 45 degrees prevent from aspiration. Concern for mild aspiration pneumonia: Patient more awake today. Follow speech evaluation advance diet accordingly. Antibiotic as above. History of seizure disorder: Concern for possible breakthrough seizure on admission. Unwitnessed. Follow-up Lamictal and Keppra levels. For now continue with Lamictal 200 mg twice daily, Keppra 1 g twice daily. Hypertension: Goal blood pressure less than 140/90 mmHg. Holding off on home antibiotics for now. Discharge planning: Plan to discharge back to assisted living within next 24 to 48 hours if patient remains on room air after completion of 3-day course of IV remdesivir on oral antibiotics and diet as per speech evaluation. Physical therapy evaluation to see safety of going back to assisted living. Dysphagia level 6 diet as per speech evaluation Protonix for PUD prophylaxis Lovenox for DVT prophylaxis Plan for the day: Wean keeping saturation over 90%. For now continue with IV remdesivir along with dexamethasone. Goal blood pressure less than 140/90 mmHg. Patient takes amlodipine 2.5 mg, IberSartan/hydrochlorothiazide at home. For now restart with amlodipine 5 mg oral daily. Uptitrate accordingly. Continue with current dysphagia level 6 diet. Will uptitrate as per speech evaluation. Appreciate normal Keppra levels. Will transition back to patient's home dose of Keppra. Awaiting Lamictal levels. Continue with IV Zosyn for now. Will plan to finish overall 5-day course of antibiotics. Sputum culture not collected yet. MRSA swab negative. Can plan to transition to oral Augmentin on discharge. Attestations 2 Medical Necessity Statement*: Requires further hospitalization in setting of acute metabolic encephalopathy, hypoxia from COVID-19 in a patient with concerns for aspiration pneumonia, seizure disorder Diagnoses Acute encephalopathy G93.40 COVID-19 U07.1 Pneumonia J18.9 Breakthrough seizure G40.919 Dementia F03.90 Hypoxia R09.02 Primary hypertension I10 Hypertension type: primary hypertension
--- NOTE | 2024-05-25 12:12 | PC.SOCIAL ---
IMM updated IMM dated and initialed, copy given to patient and copy placed in chart.
[2024-05-25] MEDS: levETIRAcetam 500 mg Tablet 750 MG PO (12:35)
[2024-05-25] MEDS: amlodipine 5 mg Tablet PO (12:35)
[2024-05-25] MEDS: dexamethasone 10 mg/mL INJ 6 MG IVP (20:54)
[2024-05-25] MEDS: remdesivir 100 MG in sodium chloride 0.9% (100 ml) 80 ML IV (21:00)
[2024-05-26] VITALS (7 sets, daily range): BP systolic 152–167; BP diastolic 71–83; PULSE 78–83; RESP 14–18; TEMP 36.7–36.8; O2SAT 91–94
[2024-05-26] MEDS: levETIRAcetam 500 mg Tablet 750 MG PO ×2 (00:53→11:59)
[2024-05-26] MEDS: ipratropium 0.5 mg/2.5 mL Neb INHALATION ×2 (02:16→08:55)
[2024-05-26] MEDS: levalbuterol 0.63 mg/3 mL Neb INHALATION ×2 (02:16→08:55)
[2024-05-26] MEDS: lamoTRIgine 100 mg Tablet 200 MG PO (05:59)
[2024-05-26] MEDS: pantoprazole 40 mg SDV IVP (05:59)
[2024-05-26] MEDS: levothyroxine 75 mcg Tablet PO (05:59)
[2024-05-26] MEDS: enoxaparin 40 mg/0.4 mL Syringe SUBCUT (05:59)
[2024-05-26] MEDS: piperacillin-tazobactam 3.375 GM in sodium chloride 0.9% (plus) 50 ML IV (06:00)
[2024-05-26 06:11] LABS: Basophils % 0.3 %; Hematocrit 34.7 % (36-47); Lymphocytes # 0.7 10^3/uL (0.8-4.8); Lymphocytes % 20.1 %; Mean Corpuscular HGB Conc 32.9 g/dL (30-55); Mean Corpuscular Hemoglobin 27.1 pg (27-33); Mean Corpuscular Volume 82.4 fl (85-98); Mean Platelet Volume 11.2 fL (7.4-10.4); Monocytes # 0.2 10^3/uL (0.2-0.9); Monocytes % 4.5 %; Neutrophils # 2.65 10^3/uL (1.8-7.7); Neutrophils % 74.8 %; Nucleated Red Blood Cells % 0 %; Platelet Count 222 10^3/cmm (157-399); Red Blood Count 4.21 10^6/uL (3.85-5.65); Red Cell Distribution Width 13.1 % (12.1-15.1); White Blood Count 3.54 10^3/uL (3.29-11.43)
[2024-05-26 06:15] LABS: Alanine Aminotransferase 11 U/L (0-33); Albumin Level 2.9 g/dL (3.5-5.2); Alkaline Phosphatase 59 U/L (35-105); Anion Gap 12.7 (5-19); Aspartate Amino Transferase 19 U/L (0-32); Blood Urea Nitrogen 18 mg/dL (8-23); Calcium 7.9 mg/dL (8.5-10.5); Carbon Dioxide 25 mmol/L (22-29); Chloride 102 mmol/L (98-107); Creatinine Clr Calc Pharmacy 56.7548; Globulin 2.4 g/dL (1.3-4.6); Glucose 154 mg/dL (65-115); Osmolality Calculated 287 mOsm/kg (285-295); Potassium 3.7 mmol/L (3.5-5.1); Sodium 136 mmol/L (136-145); Total Bilirubin 0.2 mg/dL (0.15-1.2); Total Protein 5.3 g/dL (6.6-8.7)
[2024-05-26 06:16] LABS: Magnesium 1.8 mg/dL (1.7-2.3)
[2024-05-26] MEDS: budesonide 0.5 mg/2 mL Neb INHALATION (08:55)
[2024-05-26] MEDS: amlodipine 5 mg Tablet PO (09:00)
--- NOTE | 2024-05-26 11:20 | PM.DCS ---
Discharge Providers Date of Admission: 05/23/24 03:30 Date of Discharge: May 26, 2024 Attending Provider at Admission: Ronan Schumacher MD Attending Provider at Discharge: Keegan Edwards MD Primary Care Provider: PRAVEEN Loo Diagnoses at Discharge Discharge Diagnosis (1) Acute encephalopathy: Status: Acute (2) COVID-19: Status: Acute (3) Pneumonia: Status: Acute (4) Breakthrough seizure: Status: Acute (5) Dementia: Status: Acute (6) Hypoxia: Status: Acute (7) Hypertension: Status: Chronic Qualifiers: Hypertension type: primary hypertension Qualified Code(s): I10 - Essential (primary) hypertension Reason for Visit Reason for Visit: SOB Brief History: History as per HPI: Sujata Lomeli is a 83 year old female from a assisted living facility, history of seizures, TIA who presents [facility] from due to altered mental status. She was positive for COVID 3 days ago, has had reported worsening of her respiratory function since then increased cough. Today she was noted to be confused, there was concern for possible seizure-like episode, and his postictal with possible aspiration. Currently patient is alert and oriented to person, to place,, not to time, she is globally encephalopathic, does not follow commands, normotensive, respiratory 20, on 2 L actively coughing, no evidence of respiratory distress Hospital Course Hospital Course Patient was admitted to the hospital further evaluation and management of altered mental status along with hypoxic respiratory failure. Repeat respiratory viral panel was positive for COVID-19. She was started on treatment for COVID-19 as per protocol with dexamethasone and remdesivir. There was concern for aspiration pneumonitis on admission which was confirmed on CT chest. She was started on broad-spectrum IV antibiotics. With hydration, treatment patient's mentation improved and has been back to her baseline mentation for last 48 hours. She was followed up with speech therapist during hospitalization and diet was advanced gradually. Currently she is been able to tolerate dysphagia level 6 small bite sized meals without concerns for aspiration. She has been on room air for last 24 hours. There was concern for breakthrough seizure on admission for which her home dose of Lamictal was continued and Keppra was increased. On admission her Lamictal and Keppra levels were within normal limits. Patient did not have any further episodes of seizure during hospitalization. She has been discharged in hemodynamically stable condition back to assisted living on oral dexamethasone for 7 more days, nebulization treatment. She is to continue taking her home dose of Lamictal and Keppra for now. She should follow-up with a primary care provider within next 1 week. She will continue taking amlodipine 5 mg oral daily though lisinopril has been discontinued. Physical Exam Narrative: General: No acute distress, AO x3, episodes of confusion, seems to be at her baseline mentation. HEENT: PERRLA, pupils bilaterally equal and reactive Chest: Bilateral bronchial breath sounds with occasional rhonchi CVS: S1-S2 regular, no murmurs, no tachycardia, no gallops, no rubs Abdomen: Soft, nontender, no organomegaly, bowel sounds present Neuro: No focal deficits, no facial deformity, AO x3, power 5/5 in all limbs Discharge Data Studies Completed and Pending Completed Studies During Hospitalization Category Date Time Status CT chest wo con [id number] Stat Cat Scan 05/22/24 23:[address] head wo con* [id number] Routine Cat Scan 05/23/24 04:32 Completed XR chest 1V portable [id number] Stat Exams 05/22/24 23:07 Completed Pending at discharge Category Date Time Status Blood Culture Stat Lab 05/22/24 23:53 Results Lamotrigine (Lamictal) Level Routine Lab 05/23/24 13:12 Received Radiology Impressions Chest CT 05/22/24 23:07 IMPRESSION: 1. Probable mild emphysema with strandy opacities in the lung bases compatible with atelectasis, left more prominent than right. 2. Prominent hiatal hernia containing portion of the proximal stomach Chest X-Ray 05/22/24 23:07 IMPRESSION: 1. Probable background of mild emphysema and pulmonary fibrosis. 2. Strandy opacities left lung base may represent atelectasis. 3. Density seen in retrocardiac region measuring approximately 7.2 cm transverse dimension likely represents a hiatal hernia containing a portion of the stomach Head CT 05/23/24 04:32 IMPRESSION: 1. No acute intracranial hemorrhage or edema. 2. Severe cerebral and cerebellar atrophy and small vessel disease. 3. Ventriculomegaly on the basis of atrophy. Microbiology 05/22/24 23:53 Blood Blood Culture - Preliminary NEGATIVE TO DATE 05/22/24 23:50 Blood Blood Culture - Preliminary NEGATIVE TO DATE 05/23/24 06:30 Urine Kidney Bacterial Antigens - Final Laboratory Results WBC 3.54 10^3/uL (3.29-11.43) 05/26/24 05:37 RBC 4.21 10^6/uL (3.85-5.65) 05/26/24 05:37 Hgb 11.40 g/dL (11.27-16.99) 05/26/24 05:37 Hct 34.7 % (36-47) L 05/26/24 05:37 MCV 82.4 fl (85-98) L 05/26/24 05:37 MCH 27.1 pg (27-33) 05/26/24 05:37 MCHC 32.9 g/dL (30-55) 05/26/24 05:37 RDW 13.1 % (12.1-15.1) 05/26/24 05:37 Plt Count 222 10^3/cmm (157-399) 05/26/24 05:37 MPV 11.2 fL (7.4-10.4) H 05/26/24 05:37 Neut % (Auto) 74.8 % 05/26/24 05:37 Lymph % (Auto) 20.1 % 05/26/24 05:37 [place] % (Auto) 4.5 % 05/26/24 05:37 Eos % (Auto) 0.0 % 05/26/24 05:37 Baso % (Auto) 0.3 % 05/26/24 05:37 Neut # (Auto) 2.65 10^3/uL (1.8-7.7) 05/26/24 05:37 Lymph # (Auto) 0.7 10^3/uL (0.8-4.8) L 05/26/24 05:37 [place] # (Auto) 0.2 10^3/uL (0.2-0.9) 05/26/24 05:37 Eos # (Auto) 0.0 10^3/uL (0.0-0.8) 05/26/24 05:37 Baso # (Auto) 0.0 10^3/uL (0.0-0.1) 05/26/24 05:37 Nucleated RBC % (auto) 0 % 05/26/24 05:37 Nucleated RBCs # 0.0 /100WBC 05/26/24 05:37 Specimen Type Arterial 05/23/24 00:01 Sample Site Brachial, left 05/23/24 00:01 ABG pH 7.42 (7.35-7.45) 05/23/24 00:01 ABG pCO2 39.3 mmHg (35-45) 05/23/24 00:01 ABG pO2 95.3 mmHg (80.0-100.0) 05/23/24 00:01 ABG HCO3 25.6 mmol/L (22-26) 05/23/24 00:01 ABG Base Excess 1.1 mmol/L (-2.0-2.0) 05/23/24 00:01 Sanya Test N/a 05/23/24 00:01 Hematocrit 46.7 % (37-47) 05/23/24 00:01 Hgb O2 Saturation 97.3 % (95-100) 05/23/24 00:01 Carboxyhemoglobin 0.7 %THgb (0.4-20.1) 05/23/24 00:01 Methemoglobin 0.2 % (0.4-1.5) L 05/23/24 00:01 Total Hemoglobin 15.3 g/dL (12-16) 05/23/24 00:01 O2 Delivery Device Nc 05/23/24 00:01 O2 Liters/Min 2.0 % 05/23/24 00:01 Director Surface [employer] ID Tobias 05/23/24 00:01 Sodium 136 mmol/L (136-145) 05/26/24 05:37 Potassium 3.7 mmol/L (3.5-5.1) 05/26/24 05:37 Chloride 102 mmol/L (98-107) 05/26/24 05:37 Carbon Dioxide 25 mmol/L (22-29) 05/26/24 05:37 Anion Gap 12.7 (5-19) 05/26/24 05:37 BUN 18 mg/dL (8-23) 05/26/24 05:37 Creatinine 0.7 mg/dL (0.5-0.9) 05/26/24 05:37 GFR Calculation Not Reportable 05/26/24 05:37 Glucose 154 mg/dL (65-115) H 05/26/24 05:37 Estimat Average Glucose 103 05/23/24 13:12 Hemoglobin A1c 5.2 % (4.0-6.0) 05/23/24 13:12 Calculated Osmolality 287 mOsm/kg (285-295) 05/26/24 05:37 Lactic Acid 1.1 mmol/L (0.5-2.2) 05/23/24 00:21 Calcium 7.9 mg/dL (8.5-10.5) L 05/26/24 05:37 Magnesium 1.8 mg/dL (1.7-2.3) 05/26/24 05:37 Iron 9 ug/dL (37-145) L 05/23/24 13:12 TIBC 226 mcg/dl 05/23/24 13:12 % Saturation 3.9 % (20-50) L 05/23/24 13:12 Unsat Iron Binding 217 ug/dL (112-347) 05/23/24 13:12 Total Bilirubin 0.2 mg/dL (0.15-1.2) 05/26/24 05:37 AST 19 U/L (0-32) 05/26/24 05:37 ALT 11 U/L (0-33) 05/26/24 05:37 Alkaline Phosphatase 59 U/L (35-105) 05/26/24 05:37 Troponin T Baseline 26 ng/L (0-10) H 05/22/24 23:25 Troponin T 120 Minute 22.76 ng/L (0-10) H 05/23/24 01:37 Delta Troponin T -3.24 ABS# (0-10) L 05/23/24 01:37 Troponin T Hi Sens 6Hr 22.37 ng/L (0-10) H 05/23/24 05:45 Troponin T Hi Sens 6Hr Delta -3.63 ng/L (0-12) L 05/23/24 05:45 C-Reactive Protein 60.6 mg/L (0.0-4.9) H 05/23/24 05:45 NT-Pro-B Natriuret Pep 1100 pg/mL (0-450) H 05/22/24 23:25 Total Protein 5.3 g/dL (6.6-8.7) L 05/26/24 05:37 Albumin 2.9 g/dL (3.5-5.2) L 05/26/24 05:37 Globulin 2.4 g/dL (1.3-4.6) 05/26/24 05:37 Triglycerides 53 mg/dL (0-150) 05/24/24 06:25 Cholesterol 159 mg/dL (0-200) 05/24/24 06:25 LDL Cholesterol, Calc 80 mg/dL (50-129) 05/24/24 06:25 Total VLDL Cholesterol 11 mg/dL (0-30) 05/24/24 06:25 HDL Cholesterol 68 mg/dL (60-100) 05/24/24 06:25 Cholesterol/HDL Ratio 2.34 mg/dL (0.0-4.40) 05/24/24 06:25 Vitamin B12 1803 pg/mL (232-1245) H 05/23/24 13:12 Folate 12.4 ng/mL (4.8-37.3) 05/24/24 06:25 Procalcitonin 0.27 ng/mL (0-0.5) 05/23/24 13:12 TSH 1.98 uIU/mL (0.27-4.20) 05/23/24 05:45 Urine Color Yellow (Yellow) 05/23/24 06:30 Urine Appearance Clear (CLEAR) 05/23/24 06:30 Urine pH 5.0 (5-7) 05/23/24 06:30 Ur Specific [place] 1.025 (1.005-1.030) 05/23/24 06:30 Urine Protein 1+ (Negative) A 05/23/24 06:30 Urine Glucose (UA) Negative (Normal) 05/23/24 06:30 Urine Ketones 1+ (Negative) H 05/23/24 06:30 Urine Blood Negative (Negative) 05/23/24 06:30 Urine Nitrate Negative (Negative) 05/23/24 06:30 Urine Bilirubin Negative (Negative) 05/23/24 06:30 Urine Urobilinogen 1.0 mg/dL (Negative) 05/23/24 06:30 Ur Leukocyte Esterase Negative (Negative) 05/23/24 06:30 Urine RBC 0-2 /hpf (0-2) 05/23/24 06:30 Urine WBC 0-5 /hpf (0-5) 05/23/24 06:30 Ur Squamous Epith Cells 0-5 /hpf (0-5) 05/23/24 06:30 Amorphous Sediment Not Reportable 05/23/24 06:30 Urine Bacteria None seen /hpf (NONE) 05/23/24 06:30 Hyaline Casts 6.61 /lpf 05/23/24 06:30 Nasal MRSA (PCR) Not detected (Not Detecte) 05/23/24 18:46 Levetiracetam 43.2 mcg/mL (6.0-46.0) 05/23/24 13:12 Adenovirus (PCR) Not detected (NOT DETECT) 05/23/24 18:46 C. pneumoniae DNA (PCR) Not detected (NOT DETECT) 05/23/24 18:46 Coronavirus (PCR) Negative (Negative) 05/22/24 23:19 Coronavirus 229E (PCR) Not detected (NOT DETECT) 05/23/24 18:46 Human Metapneumovir PCR Not detected (NOT DETECT) 05/23/24 18:46 Influenza A (H1) PCR Not detected (NOT DETECT) 05/23/24 18:46 Influenza A (PCR) Negative (Negative) 05/22/24 23:19 Influ A (H1/09) PCR Not detected (NOT DETECT) 05/23/24 18:46 Influenza A (H3) PCR Not detected (NOT DETECT) 05/23/24 18:46 Influenza Type A (PCR) Not detected (NOT DETECT) 05/23/24 18:46 Influenza Type B (PCR) Not detected (NOT DETECT) 05/23/24 18:46 M. pneumoniae (PCR) Not detected (NOT DETECT) 05/23/24 18:46 Parainfluenza 1 (PCR) Not detected (NOT DETECT) 05/23/24 18:46 Parainfluenza 2 (PCR) Not detected (NOT DETECT) 05/23/24 18:46 Parainfluenza 3 (PCR) Not detected (NOT DETECT) 05/23/24 18:46 Parainfluenza 4 (PCR) Not detected (NOT DETECT) 05/23/24 18:46 RSV (PCR) Negative (Negative) 05/22/24 23:19 RSV Type A (PCR) Not detected (NOT DETECT) 05/23/24 18:46 RSV Type B (PCR) Not detected (NOT DETECT) 05/23/24 18:46 Entero/Rhino (PCR) Not detected (NOT DETECT) 05/23/24 18:46 SARS-CoV-2 (PCR) Detected (NOT DETECT) A 05/23/24 18:46 Vitals Last Vital Signs Temp 98.0 F 05/26/24 11:19 Pulse 80 05/26/24 11:19 Resp 18 05/26/24 08:00 BP 163/83 05/26/24 11:19 Pulse Ox 93 05/26/24 11:19 O2 Del Method Room Air 05/26/24 11:19 O2 Flow Rate 0.5 05/26/24 04:00 Discharge Plan Discharge Patient Disposition: Home Condition: Stable Prescriptions: New budesonide 0.5 mg/2 mL Suspension For Nebulization 0.5 mg inhalation BID.RESPIRATORY Qty: 60 0RF levalbuterol HCl 0.63 mg/3 mL Solution For Nebulization 0.63 mg inhalation Q6H.RESP Qty: 90 0RF ipratropium bromide 0.02 % Solution 0.5 mg inhalation Q6H Qty: 150 0RF amoxicillin-pot clavulanate 875-125 mg tablet 1 tab PO BID Qty: 6 0RF dexamethasone 6 mg tablet 6 mg PO DAILY Qty: 7 0RF Continued cholecalciferol (vitamin D3) 50 mcg (2,000 unit) capsule 50 mcg PO DAILY mecobalamin (vitamin B12) 1,000 mcg tablet,chewable 1,000 mcg PO DAILY lamotrigine [Lamictal] 200 mg tablet 200 mg PO Q12H Qty: 180 1RF levothyroxine 75 mcg tablet 75 mcg PO QAM Qty: 90 1RF levetiracetam 750 mg tablet 750 mg PO Q12H Qty: 180 1RF sodium chloride 1,000 mg tablet,soluble 1,000 mg PO DAILY Qty: 90 1RF (DME) Wheelchair medium See Rx Instructions .Route .MEDSUPPLY Qty: 1 0RF Rx Instructions: As directed docusate sodium [Colace] 100 mg Capsule 100 mg PO BID Changed amlodipine 2.5 mg tablet 5 mg PO DAILY Qty: 90 1RF Discontinued irbesartan-hydrochlorothiazide 300-12.5 mg tablet 1 tab PO DAILY Qty: 90 1RF Discharge Orders: Discharge Order (Routine); Ordered 05/26/24 Ordered By: Keegan Edwards Other Ambulatory Orders: DME: Hospital Bed (Order) Location: None Selected Ordered By: Keegan Edwards Referrals: [facility] [Outside] Mine Bowling, [employer] [Primary Care Provider] - 7-10 days Discharge Diet: As Directed Discharge Activity: Resume usual activity and Increase activity as tolerated Patient Instructions: Ipratropium (By breathing), Amoxicillin/Clavulanate Potassium (By mouth), Budesonide (By breathing), Levalbuterol (By breathing) (Xopenex, Xopenex HFA, Xopenex Pediatric), Dexamethasone (By mouth), COVID-19 (Coronavirus Disease 2019) (DC), Opioid Safety Activity Restrictions/Additional Instructions: Dysphagia level 6 diet. Amlodipine has been changed to 5 mg oral daily. Lisinopril has been withheld. Continue nebulization with ipratropium, Xopenex and Pulmicort for next 2 weeks. Advised to take nebulization treatment with Pulmicort, ipratropium and Xopenex for next 2 weeks aily. Advised to continue working with incentive spirometry and flutter valve while at home. Advised to continue taking dexamethasone 6 mg for next 7 days. Advised to follow-up with his primary care provider within the next 4 to 7 days. Can take COVID-19 vaccination in 3 months. Advised to continue following social distancing and isolation protocol for next 10 days. Advised to come back to the ER if fever of more than 101 Fahrenheit, more difficulty breathing than usual or requiring higher oxygen supplementation. Take Augmentin which is the antibiotic twice daily for next 3 days. Discharge Attestations Time Spent in Discharge Care*: greater than 30 min Specific Discharge Activities: educating and/or supporting family/caregiver, discussing with pcp/other providers, discussing with therapeutic case manager/social workers/dc planners, documenting/other paperwork and evaluating patient/reviewing data Status at Discharge: Cognitive status at discharge: moderately impaired cognition, Behavioral status at discharge: cooperative, Functional status at discharge: other assisted ambulation, Overall status at discharge: patient is back to baseline Quality Metrics Clinical Quality Measures [ No reported AMI, CVA or VTE this stay] Coding Level of Care Code 11371 Total time (in minutes) for Discharge: 60 Diagnoses Acute encephalopathy G93.40 COVID-19 U07.1 Pneumonia J18.9 Breakthrough seizure G40.919 Dementia F03.90 Hypoxia R09.02 Primary hypertension I10 Hypertension type: primary hypertension
[2024-05-26] MEDS: remdesivir 100 MG in sodium chloride 0.9% (100 ml) 80 ML IV (11:59)
== END 2024-05-26 13:20 | disposition intermediate care facility (04) | DRG 177 ==
LOC: ER 05-23 03:29 → MEDSURG 05-23 04:05
PROVIDERS: Nurse Practitioner; Admitting Provider Family Medicine; Emergency Provider Emergency Medicine; PCP Nurse Practitioner; Visit Provider Student in an Organized Health Care Education/Training Program
DX: U07.1 COVID-19 (principal); G92.8 Other toxic encephalopathy; J12.82 Pneumonia due to coronavirus disease 2019; J69.0 Pneumonitis due to inhalation of food and vomit; J96.91 Respiratory failure, unspecified with hypoxia; G40.909 Epilepsy, unspecified, not intractable, without status epilepticus; F03.90 Unspecified dementia, unspecified severity, without behavioral disturbance, psychotic disturbance, mood disturbance, and anxiety; E03.9 Hypothyroidism, unspecified; I25.10 Atherosclerotic heart disease of native coronary artery without angina pectoris; Z86.73 Personal history of transient ischemic attack (TIA), and cerebral infarction without residual deficits
CPT/HCPCS: 0241U; 36415; 36600; 51702; 51798; 70450; 71045; 71250; 80053; 80061; 80175; 80177; 81001; 82607; 82746; 82805; 83036; 83540; 83550; 83605; 83735; 83880; 84145; 84443; 84484; 85025; 86140; 86403; 87040; 87486; 87581; 87633; 92523; 92526; 92610; 93005; 94640; 96372; 99285; J0248; J1100; J1650; J1953; J2470; J2543; J7030; J7040; J7614; J7626; J7644